=== PATIENT | male | born 1940 | race Caucasian/White ===

== ENCOUNTER 2018-09-20 13:51 | Outpatient (REF) | payer MEDICARE, OTHER, SELFPAY ==
[2018-09-20 21:48] LABS: HCT 46.8 % (40.0-50.0); HGB 16.1 g/dL (13.5-17.5); Mean Corp. HGB Concentration 34.4 g/dL (32.0-36.0); Mean Corpuscular Hemoglobin 33.6 pg (27.0-33.0); Mean Corpuscular Volume 97.7 fL (80-95); Mean Platelet Volume 11.4 fL (8.0-11.0); Platelet Count 150 x1000/uL (130-400); RBC 4.79 m/cumm (4.50-6.00); RBC Distribution Width 12.5 % (11.8-14.1); White Blood Cell Count 6.33 k/cumm (4.4-10.8)
[2018-09-20 22:23] LABS: ALT 19 U/L (12-78); AST 16 U/L (15-37); Alkaline Phosphatase 54 U/L (46-116); Anion Gap 8.4 mmol/L (3-11); BUN 14 mg/dL (7-18); Bilirubin, Total 0.8 mg/dL (0.2-1.0); CO2 30.6 mmol/L (21.0-32.0); CREATININE 1.07 mg/dL (0.70-1.30); Calcium 9.6 mg/dL (8.5-10.1); Chloride 102 mmol/L (98-107); Glucose 120 mg/dL (70-100); Potassium 3.9 mmol/L (3.5-5.1); Sodium 141 mmol/L (136-145); Total Protein 6.9 g/dL (6.4-8.2); Vitamin B12 276 pg/mL (193-986)
== END 2018-09-20 14:11 ==
LOC: NCHCN 13:51
PROVIDERS: PCP Internal Medicine; Visit Provider Internal Medicine
DX: I10 Essential (primary) hypertension (principal)
CPT/HCPCS: 80053; 85027; 82607

== ENCOUNTER 2018-09-23 09:18 | Outpatient (CLI) | payer MEDICARE, OTHER, SELFPAY ==
--- NOTE | 2018-09-23 08:51 | DI.RAD_ITS ---
SYMPTOM/DIAGNOSIS: LEFT KNEE OSTEOARTHRITIS BONE LENGTH STUDY: Standing AP views were performed from the mid-pelvis through the ankles. There is a left total hip prosthesis which appears well aligned. There are moderate to severe degenerative changes of the right hip. There is no significant leg length discrepancy. Severe degenerative changes are seen in the medial femoral tibial joint spaces of both knees. Ankle joint spaces are well maintained.
--- NOTE | 2018-09-23 08:51 | DI.RAD_ITS ---
SYMPTOM/DIAGNOSIS: EVAL LT KNEE OA LEFT KNEE: Weightbearing AP and lateral views were performed. There is severe narrowing of medial femoral tibial joint space. There is mild paula-articular spurring. Chondrocalcinosis is noted greater at the lateral femoral tibial joint. There is mild varus angulation. There is mild anterior soft tissue swelling. Vascular calcifications are seen. There is spurring at the articular aspect of the patella. IMPRESSION: Degenerative changes,greatest at the medial femoral tibial joint.
== END 2018-09-23 09:38 ==
PROVIDERS: PCP Internal Medicine; Referring Provider Internal Medicine; Visit Provider Student in an Organized Health Care Education/Training Program
DX: M17.12 Unilateral primary osteoarthritis, left knee (principal); M79.89 Other specified soft tissue disorders; M21.162 Varus deformity, not elsewhere classified, left knee; M25.562 Pain in left knee; M16.11 Unilateral primary osteoarthritis, right hip; Z96.642 Presence of left artificial hip joint; I10 Essential (primary) hypertension
CPT/HCPCS: 99203; 99214; 73560; 77073

== ENCOUNTER 2018-11-13 08:53 | Outpatient (CLI) | payer MEDICARE, OTHER, SELFPAY ==
[2018-11-13 10:15] LABS: HCT 46.1 % (40.0-50.0); HGB 15.8 g/dL (13.5-17.5); Mean Corp. HGB Concentration 34.3 g/dL (32.0-36.0); Mean Corpuscular Hemoglobin 33.1 pg (27.0-33.0); Mean Corpuscular Volume 96.6 fL (80-95); Platelet Count 149 x1000/uL (130-400); RBC 4.77 m/cumm (4.50-6.00); RBC Distribution Width 12.7 % (11.8-14.1)
[2018-11-13 10:55] LABS: Anion Gap 7.8 mmol/L (3-11); BUN 13 mg/dL (7-18); CO2 34.2 mmol/L (21.0-32.0); CREATININE 1.09 mg/dL (0.70-1.30); Calcium 9.6 mg/dL (8.5-10.1); Chloride 101 mmol/L (98-107); Glucose 80 mg/dL (70-100); Potassium 3.9 mmol/L (3.5-5.1); Sodium 143 mmol/L (136-145)
--- NOTE | 2018-11-13 20:01 | W.PREOPHP ---
Date of service: 11/13/18 Assessment and Plan (1) Osteoarthritis of left knee: Current visit: No Status: Chronic Left total knee replacement. Details of surgery were discussed with patient as well as risks and pertinent anatomy. All questions were answered. Qualifiers: Osteoarthritis type: primary Qualified Code(s): M17.12 - Unilateral primary osteoarthritis, left knee History of Present Illness Chief Complaint: Left knee pain Narrative: Jayme is a 78-year-old male who is been complaining of left knee pain for quite some time now. He states that he has pretty significant pain in both knees, the left worse than the right, whenever he ambulates for prolonged periods of time. He also has difficulty with heavy lifting because of pain in his left knee. He states that he has trouble going up and down stairs, and is really unable to tell which direction is worse. He has tried conservative treatment including injections in the past, which have not given him long-term relief. He has also been to other providers including [facility], and they also recommend that if conservative treatment does not work, he should have a total knee replacement. Since conservative treatment has failed up to this point, a left total knee replacement was offered by Dr. Cortés. Jayme agrees with this plan and is anxious to proceed. Pertinent Surgical Information Patient denies history of CVA, MN, angina, asthma, COPD, renal or liver disorders, hepatitis, bleeding disorders, diabetes, immune or thyroid disorders. No complications from anesthesia. Review of Systems Constitutional Denies fever(s) ENT Denies dizziness and Denies sore throat Cardiovascular Denies chest pain, Denies palpitations and Denies dyspnea Respiratory Denies cough and Denies dyspnea Gastrointestinal Denies abdominal pain, Denies melena, Denies hematochezia, Denies diarrhea, Denies nausea and Denies vomiting Genitourinary Denies hematuria and Denies dysuria Neurologic Denies dizziness Endocrine Denies palpitations PFSH Medical History Cough Dysphonia HTN (hypertension) Hx of transient ischemic attack (TIA) Hyperlipidemia Kidney stone Latex allergy Lower back pain Near syncope Osteoarthritis Pharyngitis Radicular pain Rib pain Rotator cuff (capsule) sprain SOB (shortness of breath) Surgical History History of arthroscopy of left knee (Chronic) Arthroplasty of knee (Inactive) Colonoscopy - IV Sedation DISCECTOMY Endoscopic Carpal Tunnel release Lithotripsy Total replacement of hip Social History Smoking/Tobacco Use Status: Never Meds Home Medications Medication Instructions Recorded Confirmed Type Atorvastatin Calcium 10 mg PO DAILY tab-cap 08/10/17 11/13/18 History aspirin 325 mg PO DAILY tab-cap 08/10/17 11/13/18 History hydrochlorothiazide 12.5 mg PO DAILY tab-cap 08/10/17 11/13/18 History melatonin 3 mg PO HS PRN 08/10/17 11/13/18 History acetaminophen 1,000 mg PO HS 11/13/18 11/13/18 History ibuprofen [Advil] 600 mg PO BID 11/13/18 11/13/18 History sennosides-docusate sodium [Senna 2 tab PO QHS PRN 11/13/18 11/13/18 History Laxative-Stool Softener] Allergies Allergy/AdvReac Type Severity Reaction Status Date / Time codeine AdvReac Mild Verified 11/13/18 09:28 enalapril AdvReac Mild Verified 11/13/18 09:28 latex AdvReac Mild Verified 11/13/18 09:28 lisinopril AdvReac Mild Verified 11/13/18 09:28 pravastatin AdvReac Mild Verified 11/13/18 09:28 Exam [facility] Head: normocephalic and atraumatic General nose exam: no nasal discharge Throat: uvula midline and no uvular edema Other: soft palate rises symmetrically, no erythema Eyes Conjunctivae: conjunctivae normal Sclera: sclerae normal Pupils: PERRL Resp Effort & Inspection: normal respiratory effort Auscultation: clear to auscultation bilaterally and no wheezes Cardio Rate: regular rate Rhythm: regular rhythm Heart Sounds: S1 normal, S2 normal and no murmurs Results Labs : 11/13/18 10:05 11/13/18 10:05 Laboratory Results - last 24 hr 11/13/18 11/13/18 10:05 10:05 WBC 5.10 RBC 4.77 Hgb 15.8 Hct 46.1 MCV 96.6 H MCH 33.1 H MCHC 34.3 RDW 12.7 Plt Count 149 MPV 10.0 Sodium 143 Potassium 3.9 Chloride 101 Carbon Dioxide 34.2 H Anion Gap 7.8 BUN 13 Creatinine 1.09 Estimated GFR/1.73 m2 >= 60.00 Glucose 80 Calcium 9.6
== END 2018-11-13 09:13 ==
PROVIDERS: PCP Internal Medicine; Visit Provider Student in an Organized Health Care Education/Training Program
DX: M25.562 Pain in left knee (principal); M17.12 Unilateral primary osteoarthritis, left knee; I10 Essential (primary) hypertension; Z01.818 Encounter for other preprocedural examination
CPT/HCPCS: 36415; 80048; 85027; NC; 93005; 93010

== ENCOUNTER 2018-11-19 06:54 | Inpatient (IN) | payer MEDICARE, OTHER, SELFPAY ==
--- NOTE | 2018-11-13 13:37 | PDOC.CMPRO ---
Care Management Progress Note Jayme resides in [facility] with his , Nahomy. 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 Jayme reports a healthy support network of family and friends, he shares his friend Kashif will transport him home from [facility] after recovery, Kashif is at his side during CM interview. Jayme also has a son named Inge. He reports having multiple surgeries in the past including a Hip Replacement and shared that he has two FWW and two electric carts. He shares no concerns for discharge needs and feels confident he will recover fine.
--- NOTE | 2018-11-13 13:42 | CMPROGNOTE_ITS ---
Care Management Progress Note Jayme resides in [facility] with his , Nahomy. 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 Jayme reports a healthy support network of family and friends, he shares his friend Kashif will transport him home from [facility] after recovery, Kashif is at his side during CM interview. Jayme also has a son named Inge. He reports having multiple surgeries in the past including a Hip Replacement and shared that he has two FWW and two electric carts. He shares no concerns for discharge needs and feels confident he will recover fine.
[2018-11-19] VITALS (13 sets, daily range): BP systolic 108–169; BP diastolic 65–96; PULSE 52–69; RESP 12–19; TEMP 35.7–37.1; O2SAT 92–99
[2018-11-19] MEDS: Celecoxib 200 MG CAP 400 MG PO (06:37)
[2018-11-19] MEDS: Gabapentin 300 MG CAP PO ×2 (06:37→21:47)
[2018-11-19] MEDS: Acetaminophen 500 MG TAB 1000 MG PO ×3 (06:37→20:14)
[2018-11-19] MEDS: oxyCODONE-CR 10 MG TABCR PO (06:38)
[2018-11-19] MEDS: Lactated Ringers 1,000 ML 80 ML IV ×3 (06:49→22:36)
[2018-11-19] MEDS: Bupivacaine LIPOSOME/PF 133 MG/10 ML VIAL IJ ×2 (07:18→09:17)
[2018-11-19] MEDS: Bupivacaine 0.5% Pres-Free 30 ML VIAL (07:18)
[2018-11-19] MEDS: Ketorolac 30 MG/ML VIAL (09:17)
[2018-11-19] MEDS: Bupivacaine 0.25% Pres-Free 30 ML VIAL (09:17)
[2018-11-19] MEDS: Normal Saline 20 ML VIAL (09:17)
--- NOTE | 2018-11-19 13:41 | PT.INIE ---
Date of service: 11/19/18 Time of Service: 13:15 PT Notes Inpatient Physical Therapy Evaluation Date: 11/19/18 Referring Doctor: Dr. Cortés PT Orders: PT CONSULT: Status post left TKA Precautions: Fall, standard Patient Profile/Admitting Diagnosis: Patient admitted following left total knee replacement performed earlier this morning. PMHX: Hypertension, history of TIA, hyperlipidemia, history of kidney stones, low back pain status post discectomy, latex allergy, status post WENDY Social History/Home Situation: Patient lives in a single level home with his . He has one step to enter, as well as a step into his bedroom. His son and [id number] live next door, and call to check in on him during evaluation today. 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 Equipment Owned/DME: FW W Subjective: Patient states that he is feeling well. He states that his leg is waking up, and he is not experiencing any pain. Objective: General Observation: Resting in bed with IV in LUE, Ky wrap and Cryo/Cuff in place on the left leg, Caraballo catheter. Supplemental oxygen via nasal cannula. Mental Status: A and O x3 Pain: Denies ROM: Right Upper Extremity: WFL Left Upper Extremity: WFL Right Lower Extremity: WFL Left Lower Extremity: Hip range of motion is grossly within normal limits. Left knee functionally allows 0-95 degrees of flexion. Strength: Right Upper Extremity: WFL Left Upper Extremity: WFL Right Lower Extremity: Hip flexion 5/5. Quads 5/5. Ankle dorsiflexion 5/5. Left Lower Extremity: Patient's functionally able to demonstrate SLR without extension lag for 5 repetitions. Quad strength is 3/5 or greater as assessed by long arc quad. Ankle dorsiflexion is 3/5 or greater. Sensation: Intact distally Bed Mobility/Transfers: Supine?sit: Supervision Sit?stand: Contact-guard Stand?sit: Supervision Bed?chair: CG with FW W Gait: Patient ambulance 30 feet with FW W, WBAT left lower extremity, CG. He requires cues for equipment management and assistance for management of IV pole. Balance: Static Sitting: Normal Dynamic Sitting: Normal Static Standing: Fair Dynamic Standing: Fair Special Tests: Mobility Limitations Standardized Measure [facility] 6 clicks Basic Mobility Inpatient Short Form: Raw Score: 20 CMS Score: 36% deficit Informed Consent/Education: Patient instructed in purpose of PT consult and plan of care. He was instructed in an early therapeutic exercise program, as noted on flowsheet. He is provided with exercises on his white board for completion between PT sessions (completion of antiembolic activities for 10 repetitions every hour). Assessment: Patient is a 78 year old male referred to physical therapy services with the diagnosis of left knee OA, status post left TKA performed earlier today. Patient presents with clinical signs and symptoms consistent with postoperative status, as demonstrated by the following impairment level findings: 1. Decreased left knee range of motion 2. Decreased functional strength of left lower extremity 3. Decreased balance 4. Gait impairments Impairments are contributing to the following functional limitations: 1. Decreased activity tolerance 2. Decreased independence with transfers 3. Decreased tolerance to household distance ambulation 4. Unable to manage stairs [facility] score 36% deficit. Patient is assessed as Moderate 29669 complexity based on the following: History: 78-year-old male referred for rehabilitation following left TKA performed earlier today. Complicating medical factors include history of TIA, chronic low back pain status post discectomy and history of WENDY. Examination: Functional limitations as noted above Presentation: Evolving due to acute postoperative status Decision Making: Moderate complexity Goals: Goals X1 week 1. Supine-Sit: Supervision 2. Sit-Supine: Supervision 3. Sit-Stand : Supervision 4. Stand-Sit: Supervision 5. Bed-Chair: Supervision with FW W 6. Chair-Bed: Supervision with FW W 7. Gait: Supervision with FW W times 50 feet 8. Stairs: Able to a send and descend single step with bilateral upper extremity support to rail 9. Independent with home exercise program Plan of Care/Treatment Plan: 1-2x/day, 7 days/week x 1 week. Plan of care has been reviewed with the SALES NEGOTIATOR providing the service under Physical Therapy direction. Initiate Physical Therapy intervention for strengthening, bed mobility, transfers, gait, stairs, balance training, use of assistive device. DISCHARGE RECOMMENDATIONS: Home, with no equipment needs anticipated TREATMENT CODE/TIME: 20 minutes ([id number])
--- NOTE | 2018-11-19 13:50 | IN_ITS ---
Date of service: 11/19/18 Time of Service: 13:15 PT Notes Inpatient Physical Therapy Evaluation Date: 11/19/18 Referring Doctor: Dr. Cortés PT Orders: PT CONSULT: Status post left TKA Precautions: Fall, standard Patient Profile/Admitting Diagnosis: Patient admitted following left total knee replacement performed earlier this morning. PMHX: Hypertension, history of TIA, hyperlipidemia, history of kidney stones, low back pain status post discectomy, latex allergy, status post WENDY Social History/Home Situation: Patient lives in a single level home with his . He has one step to enter, as well as a step into his bedroom. His son and [id number] live next door, and call to check in on him during evaluation today. 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 Equipment Owned/DME: FW W Subjective: Patient states that he is feeling well. He states that his leg is waking up, and he is not experiencing any pain. Objective: General Observation: Resting in bed with IV in LUE, Ky wrap and Cryo/Cuff in place on the left leg, Caraballo catheter. Supplemental oxygen via nasal cannula. Mental Status: A and O x3 Pain: Denies ROM: Right Upper Extremity: WFL Left Upper Extremity: WFL Right Lower Extremity: WFL Left Lower Extremity: Hip range of motion is grossly within normal limits. Left knee functionally allows 0-95 degrees of flexion. Strength: Right Upper Extremity: WFL Left Upper Extremity: WFL Right Lower Extremity: Hip flexion 5/5. Quads 5/5. Ankle dorsiflexion 5/5. Left Lower Extremity: Patient's functionally able to demonstrate SLR without extension lag for 5 repetitions. Quad strength is 3/5 or greater as assessed by long arc quad. Ankle dorsiflexion is 3/5 or greater. Sensation: Intact distally Bed Mobility/Transfers: Supine?sit: Supervision Sit?stand: Contact-guard Stand?sit: Supervision Bed?chair: CG with FW W Gait: Patient ambulance 30 feet with FW W, WBAT left lower extremity, CG. He requires cues for equipment management and assistance for management of IV pole. Balance: Static Sitting: Normal Dynamic Sitting: Normal Static Standing: Fair Dynamic Standing: Fair Special Tests: Mobility Limitations Standardized Measure [facility] 6 clicks Basic Mobility Inpatient Short Form: Raw Score: 20 CMS Score: 36% deficit Informed Consent/Education: Patient instructed in purpose of PT consult and plan of care. He was instructed in an early therapeutic exercise program, as noted on flowsheet. He is provided with exercises on his white board for completion between PT sessions (completion of antiembolic activities for 10 repetitions every hour). Assessment: Patient is a 78 year old male referred to physical therapy services with the diagnosis of left knee OA, status post left TKA performed earlier today. Patient presents with clinical signs and symptoms consistent with postoperative status, as demonstrated by the following impairment level findings: 1. Decreased left knee range of motion 2. Decreased functional strength of left lower extremity 3. Decreased balance 4. Gait impairments Impairments are contributing to the following functional limitations: 1. Decreased activity tolerance 2. Decreased independence with transfers 3. Decreased tolerance to household distance ambulation 4. Unable to manage stairs [facility] score 36% deficit. Patient is assessed as Moderate 20301 complexity based on the following: History: 78-year-old male referred for rehabilitation following left TKA performed earlier today. Complicating medical factors include history of TIA, chronic low back pain status post discectomy and history of WENDY. Examination: Functional limitations as noted above Presentation: Evolving due to acute postoperative status Decision Making: Moderate complexity Goals: Goals X1 week 1. Supine-Sit: Supervision 2. Sit-Supine: Supervision 3. Sit-Stand : Supervision 4. Stand-Sit: Supervision 5. Bed-Chair: Supervision with FW W 6. Chair-Bed: Supervision with FW W 7. Gait: Supervision with FW W times 50 feet 8. Stairs: Able to a send and descend single step with bilateral upper extremity support to rail 9. Independent with home exercise program Plan of Care/Treatment Plan: 1-2x/day, 7 days/week x 1 week. Plan of care has been reviewed with the SEWING MACHINE TESTER providing the service under Physical Therapy direction. Initiate Physical Therapy intervention for strengthening, bed mobility, transfers, gait, stairs, balance training, use of assistive device. DISCHARGE RECOMMENDATIONS: Home, with no equipment needs anticipated TREATMENT CODE/TIME: 20 minutes ([id number])
[2018-11-19] MEDS: Celecoxib 100 MG CAP 200 MG PO (20:14)
[2018-11-19] MEDS: oxyCODONE 5 MG TAB PO (20:14)
--- NOTE | 2018-11-19 22:07 | ROE_ITS ---
Date of service: 11/19/18 Time of Service: 10:02 Operative Note DATE OF PROCEDURE: 11/19/18 PRE-OP DIAGNOSIS: Left knee osteoarthritis POST-OP DIAGNOSIS: same PROCEDURE: Left Total Knee Replacement SURGEON: Cal Cortés MORTGAGE ASSISTANT: Melania Nicole ANESTHESIA: regional and spinal ESTIMATED BLOOD LOSS: 200 PATHOLOGY: none sent TOURNIQUET TIME: 31 COMPLICATIONS: None Patient was transported to: PACU Patient's condition: stable Implants: 1. Depuy Attune Posterior Stabilized Femoral Component, Size 8 2. Depuy Attune Fixed Platform Tibial Component, Size 7 3. Depuy Attune 8 x 5 mm fixed, Stabilized Poly 4. Depuy Attune Patellar Component, Size 35 mm Indications: I have seen Jayme in clinic for symptoms of left knee arthritis, confirmed with radiographic findings. He has exhausted nonoperative methods and was having significant limitations in daily function and desired better function and less pain. I discussed the technical details of a knee replacement. I explained the risks of the procedure to include, but not limited to, bleeding, infection, pain, stiffness, fracture, damage to nerves and vessels, damage to muscles and tendons, loosening, need for repeat procedure, blood clot and cardiopulmonary demise. Despite these risks, Jayme elected to proceed. Findings: There was significant signs of arthritis throughout the knee. Procedure Description: Jayme was greeted in the preoperative holding area where the correct side was identified and marked. The consent was reviewed with the patient and signed. The history and physical was updated. All questions were answered. Preoperative mediacations were administered: Acetaminophen 1000mg, Celebrex 400mg, Gabapentin 300mg, and Oxycontin 10mg. An adductor canal block was then administered by the anesthesia team in the PACU. Jayme was taken back to the operating room. A spinal anesthestic was then administered. The patient was placed into the supine position on the operating room table. A nonsterile tourniquet was placed high onto the leg but only used for cementing. Posts were placed for positioning during the procedure. All bony prominences were well padded. Prophylactic antibiotics in the form of cefazolin were administered. 1g of Tranxemic Acid was given intravenously within 30 minutes of incision. The left leg was then prepped with Chloraprep and draped in a standard fashion with impervious stockinette and extremity drape with Iodine impregnated skin protection. A timeout to confirm correct identity, side and site, procedure, allergies, anesthesia, and medical concerns was performed. With the knee in some flexion, a midline incision was made overlying the knee. Full thickness skin flaps were raised once the extensor mechanism was encountered. These were raised medially and laterally. Any bleeding was controlled with electrocautery. Once the extensor mechanism was fully exposed, a medial parapatellar arthrotomy was performed in a flexed position. All bleeding from the arthrotomy and the geniculate arteries was coagulated. A medial subperiosteal peel was performed with electrocautery to the midcoronal plane. The fat pad was removed while keeping the patellar tendon protected. The anterior distal femur synovium was removed for later visualization. The ACL and PCL were resected and the anterior horn of the lateral meniscus was transected. The knee was then flexed with the patella everted. Large osteophytes from the tibia were removed. Large osteophytes from the femur were removed. Using a step drill, and based on preoperative templating, the femoral canal was entered. This was done with a step drill without any difficulty. The intramedullary distal femoral cut guide was inserted, set to a 5 degree valgus cut and 9mm cut thickness. The distal femoral cut guide was then held in position and pinned. With the soft tissues protected, the distal cut was performed. This was passed over a few times to ensure a planar cut. I then turned attention to the tibia. The extramedullary guide was placed onto the leg. The distal aspect was slid medial to adjust for position of center of ankle and stay in line with shaft of the tibia. Approximately 3-5 degrees of posterior slope was kept in the proximal cutting guide. The center of the guide was aligned with the PCL. The stylus was used to assess cut thickness. The medial side, most involved side, was set for a 4mm cut. This was then held in position and pinned into place with 2 additional pins and a cross pin for stability. The medial and lateral collateral ligaments were protected and the cut was performed. With this completed, it was assessed and noted to be of appropriate dimensions. The guide was removed. A spacer block was inserted and the knee was brought into extension. The 5 mm spacer block provided full extension, without hyperextension and with stability of both the medial and lateral collateral ligaments was assessed. The pins from the femur and the tibia were then removed. The distal femur was then sized. The anterior stylus was placed onto the lateral ridge of the anterior femur. This indicated a size 8 femur. The external rotation of the guide was adjusted to 3 degrees to match the epicondylar axis, perpendicular to Dolores?s line. The 4-in-1 cutting guide was the placed. The posterior medial femur cut was evaluated and appeared of good thickness. The spacer block was inserted underneath the cutting guide and stability was confirmed in 90 degrees of flexion. An chepe wing was used to confirm appropriate position of the anterior cut to avoid notching. This cutting guide was ensured to be flush on the cut surface and then pinned into place with headed pins. While protecting the soft tissues, quad tendon, and collateral ligaments, the anterior and posterior cuts were performed with a saw. The central two pins were removed and the posterior and anterior chamfers were cut next. The notch-cutting guide was placed. This was pinned to lateralize the femoral component as much as possible while keeping it flush on the cut surface. This was then pinned into position. A reciprocating saw was used to make the notch cut. A rasp smoothed the cut surfaces. A trial posterior stabilized femoral component was then inserted, impacted down to the cut surfaces, and the lug holes were drilled. Posterior osteophytes and capsular adhesions were removed with an osteotome. A provisional trial tibial component was placed and the knee was brought through range of motion. There was noted to be excellent extension and flexion. There was no significant instability. The patella was tracking without thumbs. The tibial cut surface was fully exposed. The medial and lateral menisci were removed. The tibia was then sized as a 7. The tibia had been previously marked during trialing to correspond to the center of the tibial component to help with rotation. The trial was aligned to this issa, approximately rotated to the medial 1/3rd of the tibial tubercle. The trial was pinned into place. The tibia was prepared with a reamer and a keel punch. The knee was then brought into extension and the patella was measured as 28 mm. Using the patellar clamp and cut guide, this was resected to a flat surface with at least 13mm of thickness remaining. The size 35 m patella fit the best. This was oriented and then clamped into position. The lugs were drilled. The trial components were removed. The final components, except for the polyethylene were opened on the back table. The periosteal and capsular tissues, especially posteriorly, around the knee were then systematically injected with a periarticular cocktail consisting of 50cc 0.25% Marcaine, 30mg Ketorolac, 20cc of Exparal and 50cc of injectable saline. The tourniquet was then inflated to 275mmHg. The knee was thoroughly irrigated with a pulse lavage and dried. On the back table, with the implants opened, the cement was mixed. 2 batches of antibiotic laden cement were prepared with vacuum assistance. After the cement was ready a small amount was placed on to the back side of the tibial component at the keel. A small amount was placed onto the posterior flange of the femur. Cement was manual pressurized and impregnated into the cut surface of the tibia. The tibial component was then inserted into the cut surface and impacted into position. Excess cement was removed and the component was reimpacted. Again, excess cement was removed and our attention was then turned to the femur. The femoral cut surface was once again dried and cement was manually impacted into the cut surface. The femoral component was lined with the lug holes and impacted. Excess cement was removed. It was ensured to be down against the cut surface. The trial polyethylene was then inserted and the leg was brought out into full extension for the duration of the cement curing process, approximately 15min. Cement was lastly manually impacted into the cut surface of the patella and the patellar button was clamped into position and held. During this process attention was turned to the gutters of the knee and for all interfaces for any excess cement. After the cement had finally cured, approximately 15min, the clamp was removed from the patella and the knee was taken through range of motion. A size 5 mm polyethylene component provided the best range of motion and stability with less than 2mm gapping with medial and lateral stress and full extension without significant hyperextension. The patella was tracking with a no-thumbs technique. The trial poly was removed and once again the knee was checked for any loose, excess, or errant cement. The poly component was then inserted and impacted into position after cleaning and drying the tibial tray. The capsule was then reapproximated with a No. 1 Vicryl at multiple locations. The capsule was finally closed with a No. 2 Stratafix, barbed suture. The tourniquet was then released and the arthrotomy appeared watertight without significant bleeding. The second dosing of 1g TXA was started. Deep tissues were then reapproximated with 0 Vicryl and 2-0 Vicryl. The skin was closed with a running 3-0 Monocryl in a subcuticular fashion. This was reinforced with skin glue. A Mepilex silver dressing was applied along with a [id number] SHAHANA wrap. A CryoCuff was applied. Jayme was transferred to the hospital bed without difficulty an suffering no apparent complication. Jayme has a good prognosis. Physical therapy will start today and without restrictions, weight-bearing as tolerated. Aspirin 325 mg daily, per his usual routine, will be used for DVT prophylaxis.
[2018-11-20 04:40] VITALS: BP 138/89; PULSE 60; RESP 18; TEMP 37.1; O2SAT 94
[2018-11-20] MEDS: oxyCODONE 5 MG TAB PO (04:52)
[2018-11-20] MEDS: Ondansetron 4 MG/2 ML VIAL IVP (06:44)
[2018-11-20] MEDS: Pantoprazole 40 MG TABCR PO (06:44)
[2018-11-20 07:35] VITALS: BP 93/58; PULSE 90; RESP 18; TEMP 36.4; O2SAT 92
--- NOTE | 2018-11-20 10:17 | W.PM.PROGNOT ---
Date of Service Date of service: 11/20/18 Time of Service: 10:17 Assessment and Plan (1) Osteoarthritis of left knee: Current visit: No Status: Chronic Jayme is a 78-year-old status post left knee replacement. He is doing well. He did have some nausea and vomiting this morning which should be medication related. Therefore, we will change his pain medication. I encouraged him to ambulate. He is to work physical therapy. Given his nausea, vomiting, and lack pain control currently, we will likely discharge home tomorrow. He will continue his home dose of aspirin for DVT prophylaxis. Qualifiers: Osteoarthritis type: primary Qualified Code(s): M17.12 - Unilateral primary osteoarthritis, left knee Subjective Interval history since last seen: Jayme reports be doing well. He has had some pain but is been able to ambulate. The pain has been well controlled. He did take a pain pill earlier this morning and unfortunately is because of nausea and vomiting. Since, he has been without nausea. The pain is primarily anteriorly and slightly posteriorly. He has been able to void without difficulty. He denies chest pain or shortness of breath. Exam Narrative Exam Narrative: Evaluation of the left leg shows dressings which are clean dry and intact. He is able to extend the knee against resistance and straight leg raise. Knee is stable to varus and valgus stress. He has intact ankle dorsiflexion, plantarflexion, EHL, and FHL. Sensation intact light touch over the deep and superficial peroneal nerves and tibial nerve. Objective Objective Clinical Data: Vital Signs Temperature 36.4 C L 11/20/18 07:35 Temperature Source Tympanic 11/20/18 07:35 Pulse 90 11/20/18 07:35 Pulse Rhythm Regular 11/19/18 20:00 Respiratory Rate 18 11/20/18 07:35 Respiratory Effort Non-Labored 11/19/18 20:00 Respiratory Depth Normal 11/19/18 20:00 Respiratory Pattern Normal 11/19/18 20:00 Blood Pressure 93/58 L 11/20/18 07:35 Pulse Oximetry 92 L 11/20/18 07:35 Respiratory End-tidal CO2 43 11/19/18 10:40 Oxygen Delivery Method Room Air 11/20/18 07:35 Oxygen Flow Rate 0 11/20/18 07:35 Pain Level 7 11/20/18 07:35 Comment 11/19/18 11:21 Intake & Output 11/19/18 11/19/18 11/20/18 11:59 23:59 11:59 Intake Total 1170 / 3788 2618 / 3788 1445.333 / 1445.333 Output Total 400 / 1650 1250 / 1650 1875 / 1875 Balance 770 / 2138 1368 / 2138 -429.667 / -429.667 Weight 94.8 kg Intake: IV 1170 / 2218 1048 / 2218 745.333 / 745.333 Oral 1570 / 1570 700 / 700 Output: Urine 200 / 1450 1250 / 1450 1725 / 1725 Emesis 150 / 150 Estimated Blood Loss 200 / 200 Other: Urine Color Yellow Yellow Yellow Urine Appearance Clear Clear Clear Urine Odor Normal Emesis Description None Undigested Food Voiding Methods Urinal Toilet
[2018-11-20] MEDS: Atorvastatin 10 MG TAB PO (10:19)
[2018-11-20] MEDS: Aspirin 325 MG TAB PO (10:19)
[2018-11-20] MEDS: Docusate Sodium 100 MG CAP PO (10:25)
[2018-11-20] MEDS: Acetaminophen 500 MG TAB 1000 MG PO (10:26)
[2018-11-20] MEDS: Celecoxib 100 MG CAP 200 MG PO ×2 (11:18→21:04)
--- NOTE | 2018-11-20 11:28 | PT.INTREAT ---
Date of service: 11/20/18 Time of Service: 11:28 PT Notes 11/20/18 SUBJECTIVE: Mike stating that he had a terrible night. He is not managing well with the pain medications and he is vomiting after taking them. He did vomit earlier this morning but was then able to keep his breakfast down. He states he is doing his hourly exercises for his knee. OBJECTIVE: Seated in recliner. Agreeable to PT treatment. TRANSFERS: Sit to stand: S Stand to sit: S Sit to supine: S GAIT: Device: FWW/ No AD Weight bearing: WBAT L Assist: SBA Distance: 20' utilizing FWW, 100' with no AD Therex: Review ankle pumps, quad sets and SLR which he is performing independently each hour. ASSESSMENT: Encouraged pt to utilize his walker for safety purposes for a few days. He is tolerating his light exercises well without difficulty. PLAN: Continue to mobilize and progressing toward's established goals. Treatment time: 20' [id number] Ela Gonzalez PTA
[2018-11-20 11:41] VITALS: BP 119/67; PULSE 72; RESP 18; TEMP 36.4; O2SAT 92
--- NOTE | 2018-11-20 14:41 | PT.INTREAT ---
Date of service: 11/20/18 Time of Service: 14:41 PT Notes Inpatient Physical Therapy Treatment Note [facility] Date: 11/20/18 PRECAUTIONS: Standard SUBJECTIVE: Pt feels as though his [place] is under control. He states that he got some sleep this afternoon so he feels better. OBJECTIVE: BED MOBILITY/TRANSFERS Supine-sit: SBA Sit-supine: SBA Sit-stand: SBA Stand-sit: SBA GAIT Assistive Device: FWW Weight bearing: WBAT L LE Assist: SBA Distance: 120ft THEREX: Pt completed LE ther ex in the supine and seated positions as per flow sheet. Pt was able to achieve approx 90 degrees knee flexion while in seated on his own and almost 0 degrees knee ext. ASSESSMENT: Pt tolerated today's session very well. Pt was very motivated to complete his session and very independent. PLAN: Cont as per PT POC. TREATMENT CODE/TIME: 2:15-2:35 (20 TAx1
--- NOTE | 2018-11-20 15:09 | PDOC.CMIN ---
- If Service Date Differs Date of service: 11/20/18 Time of Service: 15:09 Care Management Initial Assess REASON FOR HOSPITALIZATION:: (L) Knee DJD PAST MEDICAL HISTORY/PAST SURGICAL HISTORY:: Cough. Dysphonia. HTN (hypertension). Hx of transient ischemic attack (TIA). Hyperlipidemia. Kidney stone. Latex allergy. Lower back pain. Near syncope. Osteoarthritis. Pharyngitis. Radicular pain. Rib pain. Rotator cuff (capsule) sprain. SOB (shortness of breath). History of arthroscopy of left knee (Chronic). Arthroplasty of knee (Inactive). Colonoscopy - IV Sedation. DISCECTOMY. Endoscopic Carpal Tunnel release. Lithotripsy. Total replacement of hip PREVIOUS FUNCTIONAL STATUS/SOCIAL/FAMILY SUPPORTS:: Jayme 'Mike' resides with his Nah[facility] in [facility]. Jayme is independent at baseline, he drives, and manages ADL's. Mike reports support from family and friends, and names his friend Kashif. CURRENT FUNCTIONAL STATUS:: Mike is sitting up in bed, pleasant and receptive to discussion. He has been ambulating in the halls throughout the day today. ADVANCE DIRECTIVES:: None on file Has patient been provided with information about the portal?: Yes Did the patient sign up for the portal?: No CODE STATUS:: Full Code INSURANCE COVERAGE / FINANCIAL ISSUES:: Medicare, [employer] CURRENT HOME/COMMUNITY SERVICES/EQUIPMENT:: Currently Jayme has no services in the community. He does report that he has a FWW PRIMARY CARE PHYSICIAN:: Dr. Estrada POTENTIAL DISCHARGE NEEDS:: F/U appointment with Dr. Cortés PATIENT/FAMILY EDUCATION NEEDS:: Review DC instructions, any limitations, and ongoing DC planning discussion. Discuss Ask Me Three ANTICIPATED BARRIERS TO DISCHARGE:: None identified at this time TRANSPORTATION:: Via private vehicle with family/friend PLAN:: Mike to return home with no anticipated services. He will F/U with dr. Braun and plan of care as prescribed. Jayme's family/friend to transport when ready.
--- NOTE | 2018-11-20 15:19 | INITIAL_ITS ---
- If Service Date Differs Date of service: 11/20/18 Time of Service: 15:09 Care Management Initial Assess REASON FOR HOSPITALIZATION:: (L) Knee DJD PAST MEDICAL HISTORY/PAST SURGICAL HISTORY:: Cough. Dysphonia. HTN (hypertension). Hx of transient ischemic attack (TIA). Hyperlipidemia. Kidney stone. Latex allergy. Lower back pain. Near syncope. Osteoarthritis. Pharyngitis. Radicular pain. Rib pain. Rotator cuff (capsule) sprain. SOB (shortness of breath). History of arthroscopy of left knee (Chronic). Arthroplasty of knee (Inactive). Colonoscopy - IV Sedation. DISCECTOMY. Endoscopic Carpal Tunnel release. Lithotripsy. Total replacement of hip PREVIOUS FUNCTIONAL STATUS/SOCIAL/FAMILY SUPPORTS:: Jayme 'Mike' resides with his Nahomy in [facility]. Jayme is independent at baseline, he drives, and manages ADL's. Mike reports support from family and friends, and names his friend Kashif. CURRENT FUNCTIONAL STATUS:: Mike is sitting up in bed, pleasant and receptive to discussion. He has been ambulating in the halls throughout the day today. ADVANCE DIRECTIVES:: None on file Has patient been provided with information about the portal?: Yes Did the patient sign up for the portal?: No CODE STATUS:: Full Code INSURANCE COVERAGE / FINANCIAL ISSUES:: Medicare, [employer] CURRENT HOME/COMMUNITY SERVICES/EQUIPMENT:: Currently Jayme has no services in the community. He does report that he has a FWW PRIMARY CARE PHYSICIAN:: Dr. Estrada POTENTIAL DISCHARGE NEEDS:: F/U appointment with Dr. Cortés PATIENT/FAMILY EDUCATION NEEDS:: Review DC instructions, any limitations, and ongoing DC planning discussion. Discuss Ask Me Three ANTICIPATED BARRIERS TO DISCHARGE:: None identified at this time TRANSPORTATION:: Via private vehicle with family/friend PLAN:: Mike to return home with no anticipated services. He will F/U with dr. Braun and plan of care as prescribed. Jayme's family/friend to transport when ready.
[2018-11-20 15:35] VITALS: BP 103/63; PULSE 54; RESP 18; TEMP 37.1; O2SAT 92
[2018-11-20 20:01] VITALS: BP 111/69; PULSE 76; RESP 19; TEMP 37.2; O2SAT 92
[2018-11-20] MEDS: Gabapentin 300 MG CAP PO (21:04)
[2018-11-20 22:53] VITALS: BP 101/52; PULSE 81; RESP 17; TEMP 36.9; O2SAT 93
[2018-11-21 04:35] VITALS: BP 115/64; PULSE 60; RESP 16; TEMP 36.9; O2SAT 93
[2018-11-21] MEDS: Docusate Sodium 100 MG CAP PO ×2 (04:53→16:17)
[2018-11-21] MEDS: Acetaminophen 500 MG TAB PO (07:18)
[2018-11-21 07:40] VITALS: BP 103/74; PULSE 93; RESP 18; TEMP 36.2; O2SAT 92
[2018-11-21] MEDS: Pantoprazole 40 MG TABCR PO (09:35)
[2018-11-21] MEDS: Atorvastatin 10 MG TAB PO (09:35)
[2018-11-21] MEDS: Normal Saline Flush 10 ML SYR IV (09:35)
[2018-11-21] MEDS: Aspirin 325 MG TAB PO (09:36)
[2018-11-21] MEDS: Celecoxib 100 MG CAP 200 MG PO (09:36)
[2018-11-21] MEDS: HYDROmorphone 2 MG TAB PO ×2 (09:37→16:17)
[2018-11-21 11:32] VITALS: BP 117/71; PULSE 73; RESP 18; TEMP 36.3; O2SAT 92
--- NOTE | 2018-11-21 14:08 | PT.INTREAT ---
Date of service: 11/21/18 Time of Service: 10:00 PT Notes Inpatient Physical Therapy Treatment Note [facility] Date: 11/21/18 PRECAUTIONS:Fall, Standard SUBJECTIVE: Mike states that he is anxious to return home. He spoke with Dr. Cortés earlier this morning, and states that his discharge planning was still up in the air. He did have poorly controlled pain during the coordinator integrated marketing hours, but states that since taking his pain medication this morning he is been at 0/10. OBJECTIVE: PAIN: 0/10 at rest BED MOBILITY/TRANSFERS Supine-sit: Independent Sit-supine: Independent Sit-stand: Supervision Stand-sit: Supervision GAIT Assistive Device: WW Weight bearing: WBAT left Assist: SBA Distance: 120 feet x1, 50 feet x1 Deviation: Cues for step through pattern. Patient experiences increasing left knee pain with progressive ambulation, and was assisted back to bed post ambulation with left Cryo/Cuff in place. THEREX: Patient was instructed in an open and close chain strengthening program, as noted on flowsheet. Introduced left-sided hip PREs, with good tolerance. Patient is unable to progress to right sided hip PREs due to inability to tolerate unilateral weightbearing on the left lower extremity. He is initially unable to perform active SLR, requiring min assist for first 3 repetitions; he subsequently able to perform active SLR for 2 sets of 10 reps. He was instructed in active assisted range for independent completion, and was provided with a leg business analyst ecommerce for home use. STAIRS: Patient was instructed in stair management techniques, and was able to demonstrate step to pattern for therapeutic stairs (6 inches x2, 4 inches x3) with bilateral upper extremity support to rails with supervision only. ROM: Initially allows 10-70 degrees flexion, although with gentle mobilization he tolerates 5-85 degrees. ASSESSMENT: Tolerating progression of ambulation and introduction of stair management well. He has pain consistent with postoperative status, much better managed after receiving wanting pain meds. PLAN: Continue per established POC. TREATMENT CODE/TIME: 45 minutes ([id number]; [id number])
--- NOTE | 2018-11-21 14:15 | PTTR_ITS ---
Date of service: 11/21/18 Time of Service: 10:00 PT Notes Inpatient Physical Therapy Treatment Note [facility] Date: 11/21/18 PRECAUTIONS:Fall, Standard SUBJECTIVE: Mike states that he is anxious to return home. He spoke with Dr. Cortés earlier this morning, and states that his discharge planning was still up in the air. He did have poorly controlled pain during the assembly cleaner hours, but states that since taking his pain medication this morning he is been at 0/10. OBJECTIVE: PAIN: 0/10 at rest BED MOBILITY/TRANSFERS Supine-sit: Independent Sit-supine: Independent Sit-stand: Supervision Stand-sit: Supervision GAIT Assistive Device: WW Weight bearing: WBAT left Assist: SBA Distance: 120 feet x1, 50 feet x1 Deviation: Cues for step through pattern. Patient experiences increasing left knee pain with progressive ambulation, and was assisted back to bed post ambulation with left Cryo/Cuff in place. THEREX: Patient was instructed in an open and close chain strengthening program, as noted on flowsheet. Introduced left-sided hip PREs, with good tolerance. Patient is unable to progress to right sided hip PREs due to inability to tolerate unilateral weightbearing on the left lower extremity. He is initially unable to perform active SLR, requiring min assist for first 3 repetitions; he subsequently able to perform active SLR for 2 sets of 10 reps. He was instructed in active assisted range for independent completion, and was provided with a leg property worker for home use. STAIRS: Patient was instructed in stair management techniques, and was able to demonstrate step to pattern for therapeutic stairs (6 inches x2, 4 inches x3) with bilateral upper extremity support to rails with supervision only. ROM: Initially allows 10-70 degrees flexion, although with gentle mobilization he tolerates 5-85 degrees. ASSESSMENT: Tolerating progression of ambulation and introduction of stair management well. He has pain consistent with postoperative status, much better managed after receiving wanting pain meds. PLAN: Continue per established POC. TREATMENT CODE/TIME: 45 minutes ([id number]; [id number])
--- NOTE | 2018-11-21 14:54 | PDOC.CMDIS ---
- If Service Date Differs Date of service: 11/21/18 Time of Service: 14:54 LACE Index Scoring Tool - Questions: Length of Stay (in days): 3 Acuity (Admit via E.D.?): No E.D. Visits: 0 - Answers: Total Score: 3 Risk of Readmission: Low Risk Care Management Discharge Reason for Hospitalization: (L) Knee DJD Discharge Plan: Jayme will return home with no services. He will F/U with Dr. Cortés and plan of care as prescribed. Jayme has all necessary DME for DC. Family to transport. Patient/Family Education Needs: Review DC instructions, any limitations, and discuss 'Ask Me Three'
--- NOTE | 2018-11-21 15:05 | DSE_ITS ---
Date of service: 11/21/18 Time of Service: 10:04 DS: Diagnosis Discharge Diagnosis (1) Osteoarthritis of left knee: Status: Chronic Discharge Plan Disposition Patient Disposition: HOME Condition: Stable Discharge Details Reason For Visit: L KNEE DJD Admit Date/Time: 11/19/18 06:54 Admit Provider: Cal Cortés Attending Provider: Cal Cortés Primary Care Provider: Alcides Estrada Hospital Course Hospital Course: Patient was admitted to the medical/surgical floor following the procedure. It was tolerated well without any notable medical, surgical, or anesthetic complications. Mobilization began postoperatively. The staples catheter was removed and voiding spontaneously. Vitals were stable. Physical therapy worked with the patient and was cleared for discharge home. No acute medical issues. Home Meds and New Rx's Prescriptions: New celecoxib 200 mg capsule 200 mg PO BID PRN (Reason: pain) Qty: 60 RF: 1 acetaminophen 500 mg capsule 1,000 mg PO Q8H PRN (Reason: pain) Qty: 90 RF: 2 hydromorphone 2 mg tablet 2 mg PO Q4H PRN (Reason: pain) Qty: 18 RF: 0 Continued Atorvastatin Calcium 10 MG tablet 10 mg PO DAILY RF: 0 aspirin 325 MG tablet 325 mg PO DAILY RF: 0 melatonin 3 MG tablet 3 mg PO HS PRNRF: 0 hydrochlorothiazide 12.5 MG capsule 12.5 mg PO DAILY RF: 0 ibuprofen [Advil] 200 mg Tablet 600 mg PO BID RF: 0 sennosides-docusate sodium [Senna Laxative-Stool Softener] 8.6-50 mg Tablet 2 tab PO QHS PRNRF: 0 Discontinued acetaminophen 500 mg Tablet 1,000 mg PO HS RF: 0 Discharge Instructions Additional Instructions: Dr. Cortés?s Total Knee Discharge Instructions Activity: The most important activity is to walk. You should try to take short walks a few times a day. It is important that when resting you work on keeping the knee straight. Avoid putting a pillow behind the knee as this will encourage flexion. Work on range of motion exercises as provided by Physical Therapy. - Start outpatient physical therapy within 2 weeks. - You should wear the CECY hose on both legs for 4 weeks. Dressing: Keep the surgical dressing in place for at least one week. After the first week it may be removed and replace with light gauze and tape or nothing. It may get wet after 3 days but avoid soaking the dressing. If it gets wet, just lightly pat dry. Medications: - You should take Tylenol and anti-inflammatory (Celebrex) as your primary pain control medications. IF CELEBREX IS NOT COVERED AND IS COST-PROHIBITIVE, YOU MAY USE IBUPROFEN 600mg EVERY 8 HOURS - You have been prescribed a stronger pain medication (Dilaudid) for breakthrough pain, take as needed as prescribed. - You will be taking Aspirin 81mg twice a day for DVT prevention unless instructed otherwise. - If you have constipation you should take Colace or Miralax (both [id number]). It takes most people 3-4 days to have a bowel movement. Follow-up: 2 weeks Referrals: Cal Cortés MD [ [facility]YSICIAN] - Activity:: Activity as Tolerated Equipment/Supplies:: Walker Diet:: As Tolerated Discharge Orders Discharge Orders: Discharge Order (Routine); Ordered 11/21/18 Ordered By: Cal Cortés DS: Data Vitals/I&O Vitals and I&O: Vital Signs Temperature 36.3 C L 11/21/18 11:32 Temperature Source Tympanic 11/21/18 11:32 Pulse 73 11/21/18 11:32 Pulse Rhythm Regular 11/21/18 11:32 Respiratory Rate 18 11/21/18 11:32 Respiratory Effort 11/21/18 11:32 Respiratory Depth Normal 11/21/18 11:32 Respiratory Pattern Normal 11/21/18 11:32 Blood Pressure 117/71 11/21/18 11:32 Pulse Oximetry 92 L 11/21/18 11:32 Respiratory End-tidal CO2 43 11/19/18 10:40 Oxygen Delivery Method Room Air 11/21/18 11:32 Oxygen Flow Rate 0 11/21/18 11:32 Pain Level 9 11/21/18 11:51 Comment 11/21/18 11:32 Intake & Output 11/20/18 11/21/18 11/21/18 23:59 11:59 23:59 Intake Total 1080 / 2525.333 880 / 1360 480 / 1360 Output Total 1775 / 3650 1500 / 1500 Balance -695 / -1124.667 -620 / -140 480 / -140 Intake: Oral 1080 / 1780 880 / 1360 480 / 1360 Output: Urine 1775 / 3500 1500 / 1500 Other: Urine Color Yellow Yellow Urine Appearance Clear Clear Urine Odor Normal Normal Voiding Methods Urinal Toilet [facility] Medical History Cough Dysphonia HTN (hypertension) Hx of transient ischemic attack (TIA) Hyperlipidemia Kidney stone Latex allergy Lower back pain Near syncope Osteoarthritis Pharyngitis Radicular pain Rib pain Rotator cuff (capsule) sprain SOB (shortness of breath) Surgical History History of arthroscopy of left knee (Chronic) Arthroplasty of knee (Inactive) Colonoscopy - IV Sedation DISCECTOMY Endoscopic Carpal Tunnel release Lithotripsy Total replacement of hip Social History Smoking and Tabacco status: Never
--- NOTE | 2018-11-21 15:05 | CHAPLAIN ---
Mr. Nicole was in bed resting when I visited, and easily become engaged n conversation telling me about his knee surgery as well as previous hip surgery and another needed knee and hip surgery. He shared some personal history, telling me about moving to [place] after growing up in [place], and then [place] from [place] about 20 years ago. He said he has told family members not visit.
[2018-11-21 15:10] VITALS: BP 102/63; RESP 20; TEMP 37; O2SAT 92
--- NOTE | 2018-11-21 15:40 | INDS_ITS ---
Date of service: 11/21/18 Time of Service: 14:00 PT Notes Date: 11/21/18 Referring Doctor: Dr. Cortés PT Orders: PT CONSULT: Status post left TKA Precautions: Fall, standard Treatment Date: 11/19/18 - 11/21/18 Patient Profile/Admitting Diagnosis: Patient admitted following left total knee replacement performed 11/19/18. He's participated in PT intervention for 5 sessions over the past 3 days, with significant improvements in mobility and activity tolerance during that time. PMHX: Hypertension, history of TIA, hyperlipidemia, history of kidney stones, low back pain status post discectomy, latex allergy, status post WENDY Social History/Home Situation: Patient lives in a single level home with his . He has one step to enter, as well as a step into his bedroom. His son and [id number] live next door, and call to check in on him during evaluation today. 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 Equipment Owned/DME: FW W, grab bars at steps Subjective: Patient presents to the PT room independently, stating he needed to get up and stretch his legs. He states that he's been trying to move throughout the day to prevent stiffness. He's hopeful he can return home later this afternoon. Objective: General Observation: No lines. Mental Status: A and O x3 Pain: Denies ROM: Right Upper Extremity: WFL Left Upper Extremity: WFL Right Lower Extremity: WFL Left Lower Extremity: Hip range of motion is grossly within normal limits. Left knee functionally allows 2-90 degrees of flexion. Strength: Right Upper Extremity: WFL Left Upper Extremity: WFL Right Lower Extremity: Hip flexion 5/5. Quads 5/5. Ankle dorsiflexion 5/5. Left Lower Extremity: Initially unable to perform SLR, with need for 25% assist for initial reps. After assisted performance, he's able to demonstrate independent SLR for 2 sets of 10 reps. Sensation: Intact distally Bed Mobility/Transfers: Supine?sit: independent Sit?stand: independent Stand?sit: independent Bed?chair: independent with FWW Gait: Patient ambulance 120 feet with FW W, WBAT left lower extremity, SBA. He ambulates 30' independently with FWW. Stairs: Patient is able to a send and descend therapeutic stairs (6 inches x4, 4 inches x6) with bilateral upper extremity support to rail and supervision only. Balance: Static Sitting: Normal Dynamic Sitting: Normal Static Standing: Fair Dynamic Standing: Fair Treatment: Today's session consisted of reevaluation, followed by instruction in therapeutic exercise program, as noted on flowsheet. Patient also received gait and transfer training, with cues for step through gait pattern, and verbal and visual cues for appropriate sit to stand transfers, which we practiced repetitively. He also received gentle mobilization of the right knee, within his pain tolerance. We reviewed his home exercise program, and exercises were indicated in his postoperative packet for home completion. Assessment: Patient is a 78 year old male referred to physical therapy services with the diagnosis of left knee OA, status post left TKA performed 11/19/18. He is participated in 5 PT sessions over the past 3 days, and has demonstrated significant improvements in safety, mobility and activity tolerance. All of his rehab goals have been met, and he is now appropriate for discharge from PT in acute care setting. Goals: Goals X1 week 1. Supine-Sit: Supervision (MET) 2. Sit-Supine: Supervision (MET) 3. Sit-Stand : Supervision (MET) 4. Stand-Sit: Supervision (MET) 5. Bed-Chair: Supervision with FW W (MET) 6. Chair-Bed: Supervision with FW W (MET) 7. Gait: Supervision with FW W times 50 feet (MET) 8. Stairs: Able to a send and descend single step with bilateral upper extremity support to rail (MET) 9. Independent with home exercise program (MET) Plan of Care/Treatment Plan: DC from PT services in acute care setting DISCHARGE RECOMMENDATIONS: Home, with no equipment needs anticipated TREATMENT CODE/TIME: 30 minutes ([id number], [id number])
== END 2018-11-21 16:30 | disposition home or self-care (01) | DRG 470 ==
LOC: SUR 07:34 → MS 10:30
PROVIDERS: Admitting Provider Student in an Organized Health Care Education/Training Program; PCP Internal Medicine; Visit Provider Student in an Organized Health Care Education/Training Program
PROC: 0SRD0J9 Replacement of Left Knee Joint with Synthetic Substitute, Cemented, Open Approach (ICD-10-PCS; CPT 27447; principal; 2018-11-19 07:30)
DX: M17.12 Unilateral primary osteoarthritis, left knee (principal); Z96.652 Presence of left artificial knee joint; I10 Essential (primary) hypertension; E78.5 Hyperlipidemia, unspecified; Z91.040 Latex allergy status; R11.10 Vomiting, unspecified
CPT/HCPCS: 27447; 76942; 97110; 97162; 97530; NC; J0690; J1885; J2250; J2405

== ENCOUNTER 2018-12-04 14:03 | Outpatient (CLI) | payer MEDICARE, OTHER, SELFPAY ==
--- NOTE | 2018-12-04 14:20 | DI.RAD_ITS ---
SYMPTOM/DIAGNOSIS: F/U LT TKA, PAIN LEG LENGTH AND LEFT KNEE: Note is made of a left total knee replacement. There is no evidence of hardware failure. The right knee shows moderate narrowing of the medial femoral tibial joint space and periarticular spurring, both medially and laterally. Chondrocalcinosis is present. Note is made of a left total hip replacement and moderate joint space narrowing of the right hip. The right lower extremity measures 100.6 cm. The left lower extremity measures 101.5 cm.
== END 2018-12-04 14:23 ==
PROVIDERS: PCP Internal Medicine; Visit Provider Student in an Organized Health Care Education/Training Program
DX: M17.12 Unilateral primary osteoarthritis, left knee (principal); Z96.652 Presence of left artificial knee joint; Z96.642 Presence of left artificial hip joint; Z47.1 Aftercare following joint replacement surgery
CPT/HCPCS: 73560; 77073

== ENCOUNTER → 2019-01-01 13:40 | Outpatient (BNVA) | payer MEDICARE, OTHER, SELFPAY | PROVIDERS: PCP Internal Medicine; Referring Provider Internal Medicine; Visit Provider Student in an Organized Health Care Education/Training Program | DX: Z47.1 Aftercare following joint replacement surgery (principal); Z96.652 Presence of left artificial knee joint ==

== ENCOUNTER 2019-02-24 15:11 | Outpatient (CLI) | payer MEDICARE, OTHER, SELFPAY ==
--- NOTE | 2019-02-24 15:06 | DI.RAD_ITS ---
SYMPTOM/DIAGNOSIS: RT HIP PAIN RIGHT HIP AND PELVIS: Comparison is made with 04/30/18. There has been no change in the left hip prosthesis. There is narrowing of mainly the superior joint space of the right hip. There is periarticular spurring but no femoral head flattening. The findings have slightly worsened when compared with the previous exam. There are mild degenerative changes of the SI joints. There are prominent osteophytes in the lower lumbar spine. IMPRESSION: Slight interval progression of degenerative changes of the right hip.
== END 2019-02-24 15:31 ==
PROVIDERS: PCP Internal Medicine; Referring Provider Internal Medicine; Visit Provider Student in an Organized Health Care Education/Training Program
DX: M25.551 Pain in right hip (principal); M16.11 Unilateral primary osteoarthritis, right hip; Z96.642 Presence of left artificial hip joint; M53.3 Sacrococcygeal disorders, not elsewhere classified
CPT/HCPCS: 99213; 99214; 73502

== ENCOUNTER 2019-03-06 00:38 | Outpatient (CLI) | payer MEDICARE, OTHER, SELFPAY ==
--- NOTE | 2019-03-06 10:37 | W.PROCNOTE ---
Date of service: 03/06/19 Time of Service: 10:37 Procedure Note Date of procedure: 03/06/19 Procedure: Right Hip Injection with Fluoroscopic Guidance Surgeon/Proceduralist/Physician: Cal Cortés Procedure Diagnosis: Right Hip Osteoarthritis Procedure Indications: Jayme has had persistent pain of the RIGHT hip and groin. Noninvasive measures have been tried. To serve as both diagnostic and therapeutic, an injection under fluoroscopy was recommended. I had discussed the risks of the procedure and the patient elected to proceed. Procedure Description: Jayme was greeted in the flouroscopy room. The correct side was identified and the consent was reviewed with the patient and signed. The patient was then placed in the supine position on the fluoroscopy table. The RIGHT hip was then prepped with Chloraprep. The anterolateral injection starting point was identiifed by bony landmarks and fluoroscopy. The skin and soft tissue in the tract of the injection was anesthetized with 1% Lidocaine. A spinal needle was then inserted deep into the hip joint at the level of the lateral femoral neck under fluoroscopic guidance. A small amount of Omnipaque solution was injected to confirm intraarticular placement. Once confirmed, the hip was injected with 6cc of 0.5% Bupivicaine and 80mg of Depo-Medrol. A bandaid was placed on the injection site. The patient tolerated the procedure well and noted improvement in pre-injection pain.
--- NOTE | 2019-03-06 11:47 | DI.RAD_ITS ---
SYMPTOMS/DIAGNOSIS: PRIMARY OSTEOARTHRITIS OF RIGHT HIP, M16.11 RIGHT HIP INJECTION: Fluoroscopy Time: 11.7 sec 1.96 mGy Under fluoroscopic guidance, Dr. Cortés positioned a needle in the right hip joint and carried out a joint injection. Please see the procedure report for further information.
[2019-03-06] MEDS: Omnipaque 300 MG/ML 10 ML BTL IJ (11:48)
[2019-03-06] MEDS: Bupivacaine 0.5% Pres-Free 10 ML VIAL 6 ML IJ (11:49)
[2019-03-06] MEDS: methylPREDNISolone ACETATE 80 MG/ML VIAL IM (14:19)
== END 2019-03-06 00:58 ==
PROVIDERS: PCP Internal Medicine; Visit Provider Student in an Organized Health Care Education/Training Program
DX: M16.11 Unilateral primary osteoarthritis, right hip (principal); M25.551 Pain in right hip
CPT/HCPCS: 20610; 77002; J1030; J1040

== ENCOUNTER 2019-04-24 00:54 | Outpatient (CLI) | payer MEDICARE, OTHER, SELFPAY ==
--- NOTE | 2019-04-24 07:09 | DI.RAD_ITS ---
SYMPTOM/DIAGNOSIS: RT HIP INJECTION, PRIMARY OA RT HIP, M16.11 RIGHT HIP INJECTION: Fluoroscopy Time: 10.6 seconds Fluoroscopy was utilized by Dr. Cortés during the performance of a right hip injection. Please refer to the procedure report for complete details.
--- NOTE | 2019-04-24 10:18 | W.PROCNOTE ---
Date of service: 04/24/19 Time of Service: 10:30 Procedure Note Date of procedure: 04/24/19 Procedure: Right Hip Injection with Fluoroscopic Guidance Surgeon/Proceduralist/Physician: Cal Cortés Procedure Diagnosis: Right Hip Osteoarthritis Procedure Indications: Bijan has had persistent pain of the RIGHT hip and groin. Noninvasive measures have been tried. For the purpose of pain control, an injection under fluoroscopy was recommended. I had discussed the risks of the procedure and the patient elected to proceed. Procedure Description: Bijan was greeted in the flouroscopy room. The correct side was identified and the consent was reviewed with the patient and signed. The patient was then placed in the supine position on the fluoroscopy table. The RIGHT hip was then prepped with Chloraprep. The anterolateral injection starting point was identiifed by bony landmarks and fluoroscopy. The skin and soft tissue in the tract of the injection was anesthetized with 1% Lidocaine. A spinal needle was then inserted deep into the hip joint at the level of the lateral femoral neck under fluoroscopic guidance. A small amount of Omnipaque solution was injected to confirm intraarticular placement. Once confirmed, the hip was injected with 6cc of 0.5% Bupivicaine and 80mg of Depo-Medrol. A bandaid was placed on the injection site. The patient tolerated the procedure well and noted improvement in pre-injection pain.
[2019-04-24] MEDS: Omnipaque 300 MG/ML 10 ML BTL IJ (10:54)
[2019-04-24] MEDS: Bupivacaine 0.5% Pres-Free 10 ML VIAL IJ (10:55)
[2019-04-24] MEDS: methylPREDNISolone ACETATE 80 MG/ML VIAL IM (10:55)
== END 2019-04-24 01:14 ==
PROVIDERS: PCP Internal Medicine; Visit Provider Student in an Organized Health Care Education/Training Program
DX: M16.11 Unilateral primary osteoarthritis, right hip (principal); M25.551 Pain in right hip
CPT/HCPCS: 20610; 77002; J1040

== ENCOUNTER 2019-06-16 11:13 | Emergency (ER) | payer MEDICARE, OTHER, SELFPAY ==
[2019-06-16] VITALS (26 sets, daily range): BP systolic 123–163; BP diastolic 87–108; PULSE 72–98; RESP 16; TEMP 36.4; O2SAT 93–96
--- NOTE | 2019-06-16 11:59 | DI.CT_ITS ---
SYMPTOM/DIAGNOSIS: RT NECK/ARM PAIN, R/O ARTERIAL PATHOLOGY CTA NECK: CT angiography was performed with multi slice acquisition and multi planar and 3D reconstruction. Calcific plaque is seen at the common carotid bulbs bilaterally, right greater than left. There is no significant stenosis. The left paravertebral artery is dominant. The basilar artery is somewhat tortuous. The [place] vasculature shows no significant stenosis. There is no gross evidence of an aneurysm. There is an enhancing 10 mm nodule in the right parotid and two other smaller enhancing lesions more inferiorly. They appear circumscribed. No abnormal areas of enhancement are seen in the brain. The visualized portions of the upper lobes appear clear. The thyroid and submandibular glands are unremarkable. There is no sinus or mastoid air cell opacification. Degenerative disc changes are seen in the cervical spine. IMPRESSION: Mild calcific plaque of both common carotid bulbs without evidence of significant stenosis. There is no evidence of dissection. The [place] vasculature appears intact. Enhancing nodules are seen in the right parotid gland.
--- NOTE | 2019-06-16 11:59 | DI.CT_ITS ---
SYMPTOM/DIAGNOSIS: RIGHT ARM, HIP PAIN, R/O AORTIC PATHOLOGY CHEST CT : CT angiography was performed with multi slice acquisition and multi planar and 3D reconstruction. No pleural or pericardial effusions or infiltrates are seen. The maximum dimension of the ascending aorta is 4.4 cm. There is some atherosclerotic change along the descending aorta. There is no aneurysm of the abdominal aorta. There is no evidence of branch vessel occlusion. The visualized portions of the bowel are unremarkable. There is mild low density in nodularity of the liver which could indicate mild cirrhosis. No varices or splenomegaly is seen. The pancreas and adrenals are unremarkable. There is a left renal cyst. Degenerative changes are seen in the spine. IMPRESSION: No evidence of pulmonary emboli, aortic dissection or other acute abnormality,
[2019-06-16 12:09] LABS: Abs Immature Grans 0.01 k/cumm (0.0-0.09); Absolute Basophil Count 0.02 k/cumm (0.0-0.2); Absolute Lymphocyte Count 1.17 k/cumm (1.2-3.4); Absolute Monocyte Count 0.42 k/cumm (0.11-0.7); Absolute Neutrophil Count 3.26 k/cumm (1.2-6.7); Basophils % 0.4; HCT 43.8 % (40.0-50.0); HGB 14.9 g/dL (13.5-17.5); Immature Grans % 0.2; Lymphocytes % 23.5; Mean Corpuscular Volume 97.1 fL (80-95); Mean Platelet Volume 9.6 fL (8.0-11.0); Monocytes % 8.4; Neutrophils % 65.5; Platelet Count 177 x1000/uL (130-400); RBC 4.51 m/cumm (4.50-6.00); RBC Distribution Width 12.7 % (11.8-14.1); White Blood Cell Count 4.98 k/cumm (4.4-10.8)
--- NOTE | 2019-06-16 12:24 | ED.GENADUL_ITS ---
Discharge Plan Disposition Patient Disposition: HOME Condition: Stable Discharge Details Chief Complaint: Orthopedic Clinical Impression: Arm pain, right, Right facial pain, Parotid nodule, Hypertension Primary Care Provider: Alcides Estrada ED Provider: Gaviota Garcia Home Meds and New Rx's Prescriptions: Continued Atorvastatin Calcium 10 MG tablet 10 mg PO DAILY RF: 0 aspirin 325 MG tablet 325 mg PO DAILY RF: 0 melatonin 3 MG tablet 3 mg PO HS PRNRF: 0 hydrochlorothiazide 12.5 MG capsule 12.5 mg PO DAILY RF: 0 sennosides-docusate sodium [Senna Laxative-Stool Softener] 8.6-50 mg Tablet 2 tab PO QHS PRNRF: 0 No Action oxycodone 5 mg tablet 5 mg PO Q6H MDD 20mg PRN (Reason: pain) Qty: 28 RF: 0 ibuprofen 600 mg tablet 600 mg PO TID PRN (Reason: pain) Qty: 60 RF: 3 acetaminophen 500 mg capsule 1,000 mg PO Q8H PRN (Reason: pain) Qty: 90 RF: 2 methocarbamol 750 mg Tablet 750 mg PO Q6H PRN PRNRF: 0 lidocaine [Lidoderm] 5 % adhesive patch,medicated 1 patch TP DAILY Qty: 15 RF: 0 Discharge Instructions Instructions: Diazepam (By mouth), Sialoadenitis (ED), Hypertension (ED) Additional Instructions: It is extremely important that you call as soon as possible to make an appointm ent to be seen in follow-up for this visit by an Ear, Nose, and Throat surgeon and also by your primary care doctor. Please return immediately to the emergency department if you develop any new or worsening symptoms, if your symptoms do not improve as expected, or if you become otherwise concerned. Please return immediately to the emergency department if you develop any new or worsening symptoms. Please do not take Valium with an 5 hours of taking Benadryl, alcohol, opiate pain medications, or any other sedating medications. Referrals: Heladio Dillon DO [OSTEOPATHIC DOCTOR] - Alcides Estrada MD [Primary Care Provider] - Discharge Data Discharge Date/Time-TO BE ENTERED AT DEPARTURE: 06/16/19 16:29 Medical Decision Making Jayme Nicole is a 78 y/o man with history of TIA, hypertension, high cholesterol who presented to the emergency department with right-sided neck, shoulder, and arm pain without trauma or other inciting event. On exam patient is very well and nontoxic appearing. Patient has subjective change in sensorium to the posterior aspect of his right forearm, otherwise sensation of the right arm is normal. Motor 5 out of 5 throughout. Cranial nerves intact. Benign cardiopulmonary exam. Abdomen benign. Concern for musculoskeletal issue of the neck, muscle spasm causing symptoms versus arterial pathology. Exam/history is not consistent with CVA, ACS, PE, sepsis, septic arthritis, impending airway compromise. Plan for screening labs, EKG, CTA carotid/thorax/abdomen, teleme try. Will monitor and reassess. CTA neck, thorax shows right-sided parotid nodule, no acute findings. Labs non- diagnostic. Plan for valium for likely msk pain, discussed plan for sialogogue use. Will repeat troponin. Second trop neg. Pt requests d/c to home, states that pain has improved and he thinks pain is likely muscle spasm. I had a lengthy discussion with the patient regarding return to emergency department precautions/red flags for which to return, home care, safe Valium use, and importance of outpatient follow-up. Patient verbalized understanding of the plan was amenable. All questions were answered. Patient was discharged home with clear plan for outpatient follow-up. EXAM: CT Angiography Neck With Contrast EXAM DATE/TIME: 06/16/2019 12:00 PM CLINICAL HISTORY: 78 years old, male; Other: Neck and R arm pain TECHNIQUE: Imaging protocol: Computed tomographic angiography images of the neck with intravenous contrast using CT angiography protocol. 3D rendering: MIP reconstructed images were created and reviewed. COMPARISON: No relevant prior studies available. FINDINGS: Mild to moderate atherosclerotic calcification at the level of the carotid bifurcations bilaterally right greater than left. No hemodynamically significant stenosis. Somewhat diminutive right vertebral artery. Approximate 1 cm hyperdense nodule in the right parotid gland most likely representing a benign process however additional evaluation or followup most likely will be needed. There are 2 additional smaller hyperdense regions. Please see the final report for details as to the local protocol for followup. Airway is widely patent. IMPRESSION: 1. No evidence of hemodynamically significant stenosis or vascular occlusion or dissection. 2. Incidental right parotid gland findings as described. EXAM: CT Angiography Chest With Contrast EXAM DATE/TIME: 06/16/2019 12:00 PM CLINICAL HISTORY: 78 years old, male; Other: R arm / hip pain TECHNIQUE: Imaging protocol: Computed tomographic angiography of the chest with intravenous contrast. 3D rendering: MIP reconstructed images were created and reviewed. COMPARISON: CR CHEST 2 VIEWS PA,LAT 06/25/2017 8:56 AM FINDINGS: No evidence of PE. No infiltrates. No pleural effusion. No pneumothorax. No adenopathy. Thoracic aorta unremarkable for age. IMPRESSION: No specific etiology identified for the patient's symptoms. Medical Records Medical records reviewed: Yes I reviewed the patient's medical records. Imaging Data Radiologic Study: Attestation: I personally reviewed and interpreted this imaging study as follows: Radiologist's impression: EXAM: CT Angiography Neck With Contrast EXAM DATE/TIME: 06/16/2019 12:00 PM CLINICAL HISTORY: 78 years old, male; Other: Neck and R arm pain TECHNIQUE: Imaging protocol: Computed tomographic angiography images of the neck with intravenous contrast using CT angiography protocol. 3D rendering: MIP reconstructed images were created and reviewed. COMPARISON: No relevant prior studies available. FINDINGS: Mild to moderate atherosclerotic calcification at the level of the carotid bifurcations bilaterally right greater than left. No hemodynamically significant stenosis. Somewhat diminutive right vertebral artery. Approximate 1 cm hyperdense nodule in the right parotid gland most likely representing a benign process however additional evaluation or followup most likely will be needed. There are 2 additional smaller hyperdense regions. Please see the final report for details as to the local protocol for followup. Airway is widely patent. IMPRESSION: 1. No evidence of hemodynamically significant stenosis or vascular occlusion or dissection. 2. Incidental right parotid gland findings as described. Exam(s) a CT:CT thorax & abdomen CTA SYMPTOM/DIAGNOSIS: RIGHT ARM, HIP PAIN, R/O AORTIC PATHOLOGY CHEST CT : CT angiography was performed with multi slice acquisition and multi planar and 3D reconstruction. No pleural or pericardial effusions or infiltrates are seen. The maximum dimension of the ascending aorta is 4.4 cm. There is some atherosclerotic change along the descending aorta. There is no aneurysm of the abdominal aorta. There is no evidence of branch vessel occlusion. The visualized portions of the bowel are unremarkable. There is mild low density in nodularity of the liver which could indicate mild cirrhosis. No varices or splenomegaly is seen. The pancreas and adrenals are unremarkable. There is a left renal cyst. Degenerative changes are seen in the spine. IMPRESSION: No evidence of pulmonary emboli, aortic dissection or other acute abnormality, Lab Data Lab results reviewed: Yes I reviewed the patient's lab results. Laboratory Tests Range/Units 06/16/19 06/16/19 06/16/19 12:00 12:00 15:04 WBC (4.4-10.8) k/cumm 4.98 RBC (4.50-6.00) m/cumm 4.51 Hgb (13.5-17.5) g/dL 14.9 Hct (40.0-50.0) % 43.8 MCV (80-95) fL 97.1 H MCH (27.0-33.0) pg 33.0 MCHC (32.0-36.0) g/dL 34.0 RDW (11.8-14.1) % 12.7 Plt Count (130-400) x1000/uL 177 MPV (8.0-11.0) fL 9.6 Immature Gran % 0.2 Neutrophils % 65.5 Lymphocytes % 23.5 Monocytes % 8.4 Eosinophils % 2.0 Basophils % 0.4 Absolute Neutrophils (1.2-6.7) k/cumm 3.26 Absolute Lymphocytes (1.2-3.4) k/cumm 1.17 L Absolute Monocytes (0.11-0.7) k/cumm 0.42 Absolute Eosinophils (0.0-0.7) k/cumm 0.10 Absolute Basophils (0.0-0.2) k/cumm 0.02 Sodium (136-145) mmol/L 139 Potassium (3.5-5.1) mmol/L 3.9 Chloride (98-107) mmol/L 101 Carbon Dioxide (21.0-32.0) mmol/L 29.9 Anion Gap (3-11) mmol/L 8.1 BUN (7-18) mg/dL 16 Creatinine (0.70-1.30) mg/dL 1.06 Estimated GFR/1.73 m2 (mL/min/1.73m2) >= 60.00 Glucose (70-100) mg/dL 123 H Calcium (8.5-10.1) mg/dL 9.4 Total Bilirubin (0.2-1.0) mg/dL 0.7 AST (15-37) U/L 16 ALT (16-63) U/L 16 Alkaline Phosphatase (46-116) U/L 93 Troponin I (0.00-0.06) ng/mL < 0.05 < 0.05 Total Protein (6.4-8.2) g/dL 7.8 Albumin (3.4-5.0) g/dL 3.9 ECG Data Attestation: I personally reviewed and interpreted this ECG (s) as follows: Interpretation: EKG shows sinus rhythm at 77, normal axis, no acute ischemic changes, nondiagnostic EKG HPI General Mode of arrival: ambulatory . Date/Time Provider Initiated Documentation: 06/16/19 11:33 . Limitations to Documentation: no limitations . Information obtained by: patient, family, RN notes reviewed and old records reviewed . HPI Narrative: Jayme Nicole is a 78 y/o man with history of TIA in the past, hypertension, hyperlipidemia presenting to the emergency department with neck pain, arm pain, and hip pain on the right. Patient reports that he has had long-standing right-sided hip pain that he believes was secondary to arthritis. Pain has been ongoing for at least a year. 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 Patient reports that his hip pain has gradually been increasing, and over the past month he has had swelling at the right hip joint towards the end of the day. Swelling is improved in the morning and then worsens throughout the day. He reports that this has been unchanged, not worsening or improving over the past month. He has seen Dr. Cortés for this, and a right hip replacement is planned. Patient reports that approximately 1 week ago he noticed having pain in his right neck radiating into his right jaw and radiating into his right shoulder. He also began having shocks of pain intermittently into the right arm, particularly while he is writing. He noticed that his right forearm feels intermittently somewhat numb. He denies changes to his speech, any other pain, weakness of his arms or his legs, vomiting, diarrhea, shortness of breath, cough, visual changes, pain inside his mouth, ear pain. Has been eating and drinking as usual. Has been going about his daily activities without issue. Related Data Home Medications Medication Instructions Recorded Confirmed Atorvastatin Calcium 10 mg PO DAILY tab-cap 08/10/17 06/27/19 aspirin 325 mg PO DAILY tab-cap 08/10/17 06/27/19 hydrochlorothiazide 12.5 mg PO DAILY tab-cap 08/10/17 06/27/19 melatonin 3 mg PO HS PRN 08/10/17 06/27/19 sennosides-docusate sodium [Senna 2 tab PO QHS PRN 11/13/18 06/27/19 Laxative-Stool Softener] lidocaine [Lidoderm] 1 patch TP DAILY #15 each 06/20/19 06/27/19 methocarbamol 750 mg PO Q6H PRN PRN 06/20/19 06/27/19 acetaminophen 500 mg capsule 1,000 mg PO Q8H PRN #90 cap 06/27/19 06/27/19 ibuprofen 600 mg tablet 600 mg PO TID PRN #60 tab 06/27/19 06/27/19 oxycodone 5 mg tablet 5 mg PO Q6H PRN #28 tab MDD 20mg 06/27/19 06/27/19 Previous Rx's Medication Instructions Recorded lidocaine [Lidoderm] 1 patch TP DAILY #15 each 06/20/19 acetaminophen 500 mg capsule 1,000 mg PO Q8H PRN #90 cap 06/27/19 ibuprofen 600 mg tablet 600 mg PO TID PRN #60 tab 06/27/19 oxycodone 5 mg tablet 5 mg PO Q6H PRN #28 tab MDD 20mg 06/27/19 Allergies Allergy/AdvReac Type Severity Reaction Status Date / Time codeine AdvReac Mild Verified 06/27/19 08:22 enalapril AdvReac Mild Verified 06/27/19 08:22 latex AdvReac Mild Verified 06/27/19 08:22 lisinopril AdvReac Mild Verified 06/27/19 08:22 pravastatin AdvReac Mild Verified 06/27/19 08:22 General Stated Complaint: Orthopedic DAVID: 3 Review of Systems Review of Systems Constitutional: denies fevers Eyes: denies eye pain ENT: denies dental pain, sore throat, reports right sided jaw pain Cardiovascular: denies chest pain, edema Respiratory: denies SOB, cough GI: denies abdominal pain, vomiting, diarrhea : denies flank pain MSK: denies back pain, reports right neck pain, right arm and shoulder pain Skin: denies rash Neuro: denies headaches, weakness, reports intermittent right forearm numbness [facility] Medical History Cough Dysphonia HTN (hypertension) Hx of transient ischemic attack (TIA) Hyperlipidemia Kidney stone Latex allergy Lower back pain Near syncope Osteoarthritis Pharyngitis Radicular pain Rib pain Rotator cuff (capsule) sprain SOB (shortness of breath) Social History Smoking/Tobacco Use Status: Never Alcohol Intake: never Drug use: Never Substance use type: does not use Do you feel safe in your relationship?: Yes Exam Narrative Exam Narrative: Constitutional: well and [id number], pleasant, conversing normally HENT: head atraumatic/normocephalic/normal inspection, mucous membranes moist, normal oropharynx without edema or intraoral lesion, right jaw nontender to palpation, no TMJ tenderness on the right, no trismus, bilateral TMs normal, bilateral canals normal, bilateral external ears normal Eyes: conjunctiva normal, sclera normal, pupils 3mm b/l, extraocular movements intact, no nystagmus Neck: no stridor, supple, trachea midline, no cervical vertebral tenderness, no cervical paraspinal tenderness, no tenderness of the trapezius or deltoid on the right, no edema, no overlying skin changes, no carotid bruit, full range of motion (painless), no meningismus Chest: normal inspection Resp: normal work of breathing, LCTAB Cardio: normal rate, normal rhythm, no murmur appreciated GI: abdomen soft, non-tender, non-distended, no mass Back: normal inspection, no rash Skin: warm, dry, normal color, no rash Neuro: alert, not altered, motor 5 out of 5 all extremities, cranial nerves II through XII intact, normal tone, patient reports reduced sensation to the dorsal aspect of the right forearm without objective sensation loss, otherwise normal sensation of the left and right arms Ext: no edema, no tenderness of the right scapula, clavicle, or humerus, radial pulses intact and symmetric, no skin changes to the right arm. Right hip TTP laterally, no anterior or posterior TTP, no edema, no overlying skin changes, able to range with some pain which Pt reports is at baseline, DP pulses intact and symmetric Psych: normal mood, normal affect, normal behavior Course Vital Signs Temperature 36.4 C L 06/16/19 11:21 Pulse 84 06/16/19 11:21 Respiratory Rate 16 09/02/19 11:21 Blood Pressure 141/99 H 06/16/19 11:21 Pulse Oximetry 96 06/16/19 11:21 Temperature 36.4 C L 06/16/19 11:21 Temperature Source Skin 06/16/19 11:21 Pulse 84 06/16/19 11:21 Respiratory Rate 16 06/16/19 11:21 Respiratory Effort Non-Labored 06/16/19 11:21 Blood Pressure 137/87 06/16/19 12:17 Blood Pressure Position Sitting 06/16/19 11:21 Pulse Oximetry 96 06/16/19 11:21 Oxygen Delivery Method Room Air 06/16/19 11:21 Oxygen Flow Rate 0 06/16/19 11:21 Pain Level 5 06/16/19 11:21 Lab/Test Results Lab/Test Results: Laboratory Tests Range/Units 06/16/19 12:00 WBC (4.4-10.8) k/cumm 4.98 RBC (4.50-6.00) m/cumm 4.51 Hgb (13.5-17.5) g/dL 14.9 Hct (40.0-50.0) % 43.8 MCV (80-95) fL 97.1 H MCH (27.0-33.0) pg 33.0 MCHC (32.0-36.0) g/dL 34.0 RDW (11.8-14.1) % 12.7 Plt Count (130-400) x1000/uL 177 MPV (8.0-11.0) fL 9.6 Immature Gran % 0.2 Neutrophils % 65.5 Lymphocytes % 23.5 Monocytes % 8.4 Eosinophils % 2.0 Basophils % 0.4 Absolute Neutrophils (1.2-6.7) k/cumm 3.26 Absolute Lymphocytes (1.2-3.4) k/cumm 1.17 L Absolute Monocytes (0.11-0.7) k/cumm 0.42 Absolute Eosinophils (0.0-0.7) k/cumm 0.10 Absolute Basophils (0.0-0.2) k/cumm 0.02
[2019-06-16 12:26] LABS: ALT 16 U/L (16-63); AST 16 U/L (15-37); Albumin 3.9 g/dL (3.4-5.0); Alkaline Phosphatase 93 U/L (46-116); Anion Gap 8.1 mmol/L (3-11); BUN 16 mg/dL (7-18); Bilirubin, Total 0.7 mg/dL (0.2-1.0); CO2 29.9 mmol/L (21.0-32.0); CREATININE 1.06 mg/dL (0.70-1.30); Calcium 9.4 mg/dL (8.5-10.1); Chloride 101 mmol/L (98-107); Glucose 123 mg/dL (70-100); Potassium 3.9 mmol/L (3.5-5.1); Sodium 139 mmol/L (136-145); Total Protein 7.8 g/dL (6.4-8.2); Troponin I < 0.05 ng/mL (0.00-0.06)
[2019-06-16] MEDS: Omnipaque 350 MG/ML 100 ML BTL IJ ×2 (13:27→13:28)
--- NOTE | 2019-06-16 13:51 | DI.VRAD_ITS ---
EXAM: CT Angiography Chest With Contrast EXAM DATE/TIME: 06/16/2019 12:00 PM CLINICAL HISTORY: 78 years old, male; Other: R arm / hip pain TECHNIQUE: Imaging protocol: Computed tomographic angiography of the chest with intravenous contrast. 3D rendering: MIP reconstructed images were created and reviewed. COMPARISON: CR CHEST 2 VIEWS PA,LAT 06/25/2017 8:56 AM FINDINGS: No evidence of PE. No infiltrates. No pleural effusion. No pneumothorax. No adenopathy. Thoracic aorta unremarkable for age. IMPRESSION: No specific etiology identified for the patient's symptoms. EXAM: CT Angiography Abdomen With Contrast EXAM DATE/TIME: 06/16/2019 12:00 PM CLINICAL HISTORY: 78 years old, male; Other: R arm / hip pain TECHNIQUE: Imaging protocol: Computed tomographic angiography images of the abdomen with intravenous contrast material. 3D rendering: MIP reconstructed images were created and reviewed. COMPARISON: CR CHEST 2 VIEWS PA,LAT 06/25/2017 8:56 AM FINDINGS: There is slight irregularity to the liver suggesting intrinsic liver disease. No abnormal fluid collections. Mild atherosclerotic changes to the abdominal aorta without evidence of aneurysmal dilatation or dissection. No obstructive uropathy. Visualized bowel unremarkable. IMPRESSION: Unremarkable exam for age with no specific etiology identified for the patient's symptoms. Dictated and Authenticated by: Dallas Casas MD. Ordering:KANCHAN Meek MD
--- NOTE | 2019-06-16 13:56 | DI.VRAD_ITS ---
EXAM: CT Angiography Neck With Contrast EXAM DATE/TIME: 06/16/2019 12:00 PM CLINICAL HISTORY: 78 years old, male; Other: Neck and R arm pain TECHNIQUE: Imaging protocol: Computed tomographic angiography images of the neck with intravenous contrast using CT angiography protocol. 3D rendering: MIP reconstructed images were created and reviewed. COMPARISON: No relevant prior studies available. FINDINGS: Mild to moderate atherosclerotic calcification at the level of the carotid bifurcations bilaterally right greater than left. No hemodynamically significant stenosis. Somewhat diminutive right vertebral artery. Approximate 1 cm hyperdense nodule in the right parotid gland most likely representing a benign process however additional evaluation or followup most likely will be needed. There are 2 additional smaller hyperdense regions. Please see the final report for details as to the local protocol for followup. Airway is widely patent. IMPRESSION: 1. No evidence of hemodynamically significant stenosis or vascular occlusion or dissection. 2. Incidental right parotid gland findings as described. . Dictated and Authenticated by: Dallas Casas MD. Ordering:KANCHAN Meek MD
[2019-06-16 15:32] LABS: Troponin I < 0.05 ng/mL (0.00-0.06)
[2019-06-16] MEDS: diazePAM 2 MG TAB PO (15:57)
== END 2019-06-16 16:29 | disposition home or self-care (01) ==
PROVIDERS: Emergency Provider Student in an Organized Health Care Education/Training Program; PCP Internal Medicine
DX: R51 Headache (principal); M25.511 Pain in right shoulder; M79.631 Pain in right forearm; R20.0 Anesthesia of skin; K11.9 Disease of salivary gland, unspecified; I10 Essential (primary) hypertension
CPT/HCPCS: 36415; 70498; 71275; 74175; 80053; 93005; 99285; 84484; 85025; 93010; 99284; J3490

== ENCOUNTER 2019-06-20 12:37 | Emergency (ER) | payer MEDICARE, OTHER, SELFPAY ==
[2019-06-20] VITALS (19 sets, daily range): BP systolic 129–168; BP diastolic 94–113; PULSE 69–93; RESP 12–30; TEMP 36.6–37; O2SAT 90–98
--- NOTE | 2019-06-20 12:50 | ED.GENADUL_ITS ---
Discharge Plan Disposition Patient Disposition: HOME Condition: Stable Discharge Details Chief Complaint: Chest Pain Clinical Impression: Cervical radiculopathy, Chest wall pain, Herpes zoster Primary Care Provider: Alcides Estrada ED Provider: Claudia Ramos Home Meds and New Rx's Prescriptions: New oxycodone 5 mg tablet 5 mg PO Q6H PRN (Reason: pain) Qty: 14 RF: 0 valacyclovir 1 gram tablet 1,000 mg PO TID 7 Days Qty: 21 RF: 0 lidocaine [Lidoderm] 5 % adhesive patch,medicated 1 patch TP DAILY Qty: 15 RF: 0 Continued ibuprofen 600 mg tablet 600 mg PO TID PRN (Reason: pain) Qty: 60 RF: 3 Atorvastatin Calcium 10 MG tablet 10 mg PO DAILY RF: 0 aspirin 325 MG tablet 325 mg PO DAILY RF: 0 melatonin 3 MG tablet 3 mg PO HS PRNRF: 0 hydrochlorothiazide 12.5 MG capsule 12.5 mg PO DAILY RF: 0 methocarbamol 750 mg Tablet 750 mg PO Q6H PRN PRNRF: 0 sennosides-docusate sodium [Senna Laxative-Stool Softener] 8.6-50 mg Tablet 2 tab PO QHS PRNRF: 0 acetaminophen 500 mg capsule 1,000 mg PO Q8H PRN (Reason: pain) Qty: 90 RF: 2 Discharge Instructions Instructions: Shingles (ED), Cervical Radiculopathy (ED), Chest Wall Pain (ED) Additional Instructions: Alternate Tylenol and Motrin as needed and directed for pain. Take the oxycodone for pain not relieved with Tylenol or Motrin. You can continue to take your muscle relaxers as directed. Take the antivirals as directed until finished. Call your primary care doctor's office today or Sunday to schedule follow-up appointment for reevaluation next week. Return to the emergency department if you develop any worsening or new concerning symptoms. Discharge Data Discharge Physician: Claudia Ramos Medical Decision Making 78-year-old male with a history of hypertension, TIA who presents with right sided chest, neck, upper extremity pain and right hand tingling for the past 4 weeks and a right hand pruritic and tender rash since this morning. EKG on arrival notes a rate of 82, sinus with no acute ST-T wave ischemic changes. Patient was seen here 4 days ago for the same complaint, physician note not completed but it appears that he had lab work and imaging including CT neck, chest and abdomen all of which was negative for acute findings and he was sent home with Valium. He saw his PCP yesterday and was given Robaxin for possible muscle spasm. Presentation today does appear more consistent with musculoskeletal/peripheral neuropathy, or possibly herpes zoster due to pruritic and painful rash to right hand which would fit a rash developing after weeks of pain. Will give a dose of oxycodone and place Lidoderm patch. If work-up negative, will likely treat with antivirals with follow-up with primary care doctor. 1345 --labs and imaging reviewed and unremarkable. Troponin negative. Chest x- ray negative. 1430 --patient feels much better after oxycodone and Lidoderm patch. With patient's overall symptom presentation, could be a cervical radiculopathy which may be associated with herpes zoster. Do not suspect an acute central process. Patient feels good to go home. We will send home with a prescription for oxycodone and Lidoderm patch in addition to valacyclovir. 1 dose of valacyclovir given here. He is advised to call his primary care doctor today to schedule follow-up appointment for reevaluation next week and to return here with any concerns. Medical Records Medical records reviewed: Yes I reviewed the patient's medical records. ECG Data Attestation: I personally reviewed and interpreted this ECG (s) as follows: Interpretation: rate of 82, sinus, no acute ST elevation or depression. LA 164. QTc 434. QRS 98. HPI General Mode of arrival: ambulatory . Date/Time Provider Initiated Documentation: 06/20/19 12:38 . Limitations to Documentation: no limitations . Information obtained by: patient . HPI Narrative: Patient is a 78-year-old male with a history of hypertension, TIA, osteoarthritis who presents with right chest, right scapula, right upper extremity pain along with tingling in right hand for the past 3 to 4 weeks. He states the pain is constant and worse with movement of his right upper extremity. He was seen here 4 days ago for the same complaint and diagnosed with possibly a muscle strain and sent home with Valium. He followed up with his primary care doctor yesterday who agreed it may be a muscle strain and was started on Robaxin. Patient states he awoke this morning and noted a tender, itchy rash to his right palmar hand. He states the rash is somewhat improved since this morning. He denies any fever, known injury, short ness of breath, nausea, vomiting, dizziness. He denies any other new meds, or exposures. He states he shook his friend's hand approximately 1 month ago who was diagnosed with shingles. Patient states he has been taking 1000 mg of Tylenol twice daily and 600 mg of Advil 3 times daily without relief. Related Data Home Medications Medication Instructions Recorded Confirmed Atorvastatin Calcium 10 mg PO DAILY tab-cap 08/10/17 06/20/19 aspirin 325 mg PO DAILY tab-cap 08/10/17 06/20/19 hydrochlorothiazide 12.5 mg PO DAILY tab-cap 08/10/17 06/20/19 melatonin 3 mg PO HS PRN 08/10/17 06/20/19 sennosides-docusate sodium [Senna 2 tab PO QHS PRN 11/13/18 06/20/19 Laxative-Stool Softener] acetaminophen 1,000 mg PO Q8H PRN #90 cap 11/21/18 06/20/19 ibuprofen 600 mg tablet 600 mg PO TID PRN #60 tab 03/06/19 06/20/19 lidocaine [Lidoderm] 1 patch TP DAILY #15 each 06/20/19 methocarbamol 750 mg PO Q6H PRN PRN 06/20/19 06/20/19 oxycodone 5 mg PO Q6H PRN #14 tab 06/20/19 valacyclovir 1,000 mg PO TID 7 Days #21 tab 06/20/19 Previous Rx's Medication Instructions Recorded acetaminophen 1,000 mg PO Q8H PRN #90 cap 11/21/18 ibuprofen 600 mg tablet 600 mg PO TID PRN #60 tab 03/06/19 lidocaine [Lidoderm] 1 patch TP DAILY #15 each 06/20/19 oxycodone 5 mg PO Q6H PRN #14 tab 06/20/19 valacyclovir 1,000 mg PO TID 7 Days #21 tab 06/20/19 Allergies Allergy/AdvReac Type Severity Reaction Status Date / Time codeine AdvReac Mild Verified 06/16/19 11:25 enalapril AdvReac Mild Verified 06/16/19 11:25 latex AdvReac Mild Verified 06/16/19 11:25 lisinopril AdvReac Mild Verified 06/16/19 11:25 pravastatin AdvReac Mild Verified 06/16/19 11:25 General Stated Complaint: Chest Pain DAVID: 3 Review of Systems Review of Systems All systems reviewed & are unremarkable except as noted in HPI and below Constitutional Reports as per HPI, Denies chills and Denies fever(s) Eyes Denies blurry vision ENT Denies dizziness, Denies sore throat and Denies throat swelling Cardiovascular Reports chest pain and Denies dyspnea Respiratory Denies cough and Denies dyspnea Gastrointestinal Denies abdominal pain, Denies diarrhea and Denies vomiting Genitourinary Denies hematuria and Denies dysuria Musculoskeletal Denies back pain and Denies numbness Integumentary/Breasts Denies lesions and Denies rash Neurologic Denies dizziness, Denies focal weakness, Denies numbness and Reports paresthesias (Right hand for 1 month) Allergic/Immunologic Denies throat swelling PFSH Medical History Cough Dysphonia HTN (hypertension) Hx of transient ischemic attack (TIA) Hyperlipidemia Kidney stone Latex allergy Lower back pain Near syncope Osteoarthritis Pharyngitis Radicular pain Rib pain Rotator cuff (capsule) sprain SOB (shortness of breath) Surgical History Arthroplasty of knee (Inactive) Colonoscopy - IV Sedation DISCECTOMY Endoscopic Carpal Tunnel release B/L History of arthroscopy of left knee (Chronic) Lithotripsy Total replacement of hip LEFT Social History Smoking/Tobacco Use Status: Never Alcohol Intake: never Drug use: Never Substance use type: does not use Do you feel safe in your relationship?: Yes Exam Const General: cooperative, healthy appearing and no acute distress HENID Head: normal to inspection Face and sinus: normal facial exam Eyes General: appearance normal, both eyes and all related structures EOM: EOM intact bilaterally Neck Neck: normal visual inspection and No submandibular swelling Lymphatic: no lymphadenopathy noted Chest Chest: normal inspection of the chest Chest/axillae images: 1. Tenderness to palpation R side of chest and R shoulder/R scapula Resp Effort & Inspection: normal respiratory effort and able to speak in complete sentences Auscultation: clear to auscultation bilaterally Cardio Rate: regular rate Rhythm: regular rhythm GI Inspection: normal to inspection Palpation: soft, not firm, not rigid and nontender Auscultation: normal bowel sounds Back/Spine/Pelvis Pelvis: no pain with anterior-posterior compression Skin Other: Scattered erythematous papules approximately 2 to 3 mm in size on right palmar hand. No rash noted to remainder of right upper extremity, right chest or right back. Neuro General: alert, awake and oriented x3 Cranial Nerves: CN's II-XI intact bilaterally Cognition: normal cognition Speech: speech normal Motor: muscle tone normal throughout and strength 5/5 throughout Sensory Exam: no sensory deficits noted Other: Muscle strength 5/5 bilateral upper extremities including radial/uln ar/median nerve motor function. Extrem General: full ROM and normal capillary refill Other: Pain in right upper extremity with range of motion. There are scattered erythematous papules approximately 2 to 3 mm in size on the right palmar hand that are significantly tender to touch but without evidence of acute cellulitis, induration, fluctuance. There are no obvious vesicles. Bilateral radial and ulnar pulses intact. Cap refill less than 2 seconds. Psych Appearance: grossly normal Mental Status: mental status grossly normal Speech and Movement: speech and movement normal Affect: normal affect Course Vital Signs Temperature 97.9 F 06/20/19 12:40 Pulse 86 06/20/19 12:40 Respiratory Rate 16 06/20/19 12:40 Blood Pressure 139/103 H 06/20/19 12:40 Pulse Oximetry 98 06/20/19 12:40 Temperature 97.9 F 06/20/19 12:40 Temperature Source Skin 06/20/19 12:40 Pulse 86 06/20/19 12:40 Respiratory Rate 16 06/20/19 12:40 Respiratory Effort Non-Labored 06/20/19 12:46 Respiratory Depth Normal 06/20/19 12:46 Blood Pressure 139/103 H 06/20/19 12:40 Pulse Oximetry 98 06/20/19 12:40 Oxygen Delivery Method Room Air 06/20/19 12:40 Oxygen Flow Rate 0 06/20/19 12:40
[2019-06-20 13:08] LABS: Abs Immature Grans 0.01 k/cumm (0.0-0.09); Absolute Basophil Count 0.02 k/cumm (0.0-0.2); Absolute Eosinophil Count 0.08 k/cumm (0.0-0.7); Absolute Lymphocyte Count 1.13 k/cumm (1.2-3.4); Absolute Monocyte Count 0.68 k/cumm (0.11-0.7); Basophils % 0.3; Eosinophils % 1.4; HGB 15.7 g/dL (13.5-17.5); Immature Grans % 0.2; Lymphocytes % 19.4; Mean Corp. HGB Concentration 34.9 g/dL (32.0-36.0); Mean Corpuscular Hemoglobin 33.1 pg (27.0-33.0); Mean Corpuscular Volume 94.7 fL (80-95); Mean Platelet Volume 9.8 fL (8.0-11.0); Monocytes % 11.7; Platelet Count 181 x1000/uL (130-400); RBC 4.75 m/cumm (4.50-6.00); RBC Distribution Width 12.5 % (11.8-14.1); White Blood Cell Count 5.82 k/cumm (4.4-10.8)
[2019-06-20 13:25] LABS: ALT 19 U/L (16-63); AST 16 U/L (15-37); Albumin 4.1 g/dL (3.4-5.0); Alkaline Phosphatase 88 U/L (46-116); Anion Gap 9.6 mmol/L (3-11); BUN 13 mg/dL (7-18); Bilirubin, Total 0.7 mg/dL (0.2-1.0); CO2 29.4 mmol/L (21.0-32.0); CREATININE 1.07 mg/dL (0.70-1.30); Calcium 9.3 mg/dL (8.5-10.1); Chloride 98 mmol/L (98-107); Glucose 97 mg/dL (70-100); Magnesium 1.8 mg/dL (1.8-2.4); Potassium 3.7 mmol/L (3.5-5.1); Sodium 137 mmol/L (136-145); Total Protein 8.1 g/dL (6.4-8.2)
--- NOTE | 2019-06-20 13:25 | DI.RAD_ITS ---
SYMPTOMS/DIAGNOSIS: RT SIDED CHEST PAIN, ? ACUTE DISEASE PA AND LATERAL CHEST: The heart is not enlarged. The lungs are generally clear. Questionable nodular density projected anteriorly on the lateral view, this finding is indeterminate. However the patient had a negative chest CT four days ago and this is unlikely to represent a mass or significant consolidation. No pleural effusion seen. CONCLUSION: No evidence of acute process.
[2019-06-20] MEDS: Lidocaine 5% Patch 1 PATCH TP (13:28)
[2019-06-20 13:29] LABS: Troponin I < 0.05 ng/mL (0.00-0.06)
[2019-06-20] MEDS: oxyCODONE 5 MG TAB PO (13:29)
[2019-06-20] MEDS: valACYclovir 1,000 MG TAB 1000 MG PO (15:03)
--- NOTE | 2019-06-20 15:04 | NUR.NOTE ---
Nursing Note: pt alert/oriented/ambulatory. discharged to home. instructions reviewed, understanding verbalized. VSS IV removed.
== END 2019-06-20 15:03 | disposition home or self-care (01) ==
PROVIDERS: Emergency Provider Physician Assistant; PCP Internal Medicine
DX: R07.89 Other chest pain (principal); M54.12 Radiculopathy, cervical region; B02.9 Zoster without complications; I10 Essential (primary) hypertension
CPT/HCPCS: 80053; 93005; 99285; 71046; 83735; 84484; 85025; 93010

== ENCOUNTER → 2019-06-27 08:21 | Outpatient (BNVA) | payer MEDICARE, OTHER, SELFPAY | PROVIDERS: PCP Internal Medicine; Referring Provider Internal Medicine; Visit Provider Student in an Organized Health Care Education/Training Program | DX: B02.9 Zoster without complications (principal) | CPT/HCPCS: 99214 ==

== ENCOUNTER 2019-07-18 08:57 | Outpatient (CLI) | payer MEDICARE, OTHER, SELFPAY ==
--- NOTE | 2019-07-18 08:15 | HPE_ITS ---
Assessment and Plan Assessment and plan (1) Primary osteoarthritis of right hip: Status: Chronic Assessment and plan: Plan: Patient is a reliable historian and denies any areas of skin breakdown along the left groin and anterior leg. Educated patient that if they develop any lesions, redness or skin breakdown to contact office as skin concerns would be a reason to cancel surgery. Patient gives verbal understanding. Educated patient on surgery covering surgical technique via models, recovery process, benefits and risks including but not limited to risk of infection, blood clot, fracture, leg length discrepancy, numbness/tingling, damage to soft tissue/blood vessels/nerves in detail. After discussion patient gives verbal understanding of risks and elects to proceed with scheduling surgery. Patient had opportunity to have questions answered to their satisfaction. They will contact office if issues arise. Patient will continue to be scheduled for right total hip replacement with Dr. Cortés. History of Present Illness Narrative: Mr. Nicole is a 78-year-old male who presents to clinic for preoperative appointment for right WENDY. Patient has been seen in clinic numerous times for his right hip pain. He underwent an injection on 03/06/19 which provided very little relief. He continues to have right deep groin pain that is also present on occasion more posteriorly. Pain is constant but is slightly alleviated with laying down. Pain is aggravated with getting into a car, walking, ascending hills/stairs, unable to get his right shoe on. His hip pain has been so aggravated he has to have assistive devices to put on his socks and shoe on the right side. Has been taking oxycodone by his PCP recently due to shingles outbreak and acetaminophen which helps to dull the pain. Denies any known trauma or injuries to the right hip. Denies any numbness or tingling. Due to his continued pain due to DJD he was offered surgical intervention and was eager to proceed. Patient feels that his right leg has always been slightly shorter than his left; reports no change in his leg lengths since his left WENDY. Pertinent Surgical Information Denies past medical history of: cardiac issues, angina, asthma, COPD, sleep apnea, liver issues, hepatitis, gastrointestinal issues, ulcers, bleeding disorders, seizures, migraines, anxiety, depression, diabetes, autoimmune disorders, thyroid issues Denies prior complications from surgery or anesthesia. Review of Systems Constitutional Constitutional: Denies fever(s), Denies frequent falls and Denies headache(s) Eyes Eyes: Denies change in vision ENT Ears, Nose, Mouth, and Throat: Denies dizziness, Denies ear discharge, Denies headache(s), Denies epistaxis, Denies nasal discharge and Denies sore throat Cardiovascular Cardiovascular: Denies chest pain, Denies rapid heart rate, Denies irregular heart rhythm, Denies palpitations, Denies dyspnea, Denies dyspnea on exertion, Denies orthopnea, Denies paroxysmal nocturnal dyspnea and Denies slow heart rate Respiratory Respiratory: Reports cough (chronic; denies any recent change), Denies dyspnea, Denies dyspnea on exertion and Denies wheezing Gastrointestinal Gastrointestinal: Denies abdominal pain, Denies melena, Denies hematochezia, Denies constipation, Denies diarrhea, Denies nausea and Denies vomiting Genitourinary Genitourinary: Denies hematuria, Denies dysuria and Denies urinary urgency Musculoskeletal Musculoskeletal: Reports as per HPI, Reports numbness (due to shingles in his right arm; onset ~6wks ) and Denies tingling Neurologic Neurologic: Denies dizziness, Denies frequent falls, Denies headache(s), Reports numbness (due to shingles in his right arm; onset ~6wks ) and Denies tingling Psychiatric Psychiatric: Denies anxiety and Denies depression Endocrine Endocrine: Denies palpitations Allergic/Immunologic Allergic/Immunologic: Denies wheezing PFSH Medical History Cough Dysphonia HTN (hypertension) Hx of transient ischemic attack (TIA) Hyperlipidemia Kidney stone Latex allergy Lower back pain Osteoarthritis Pharyngitis Radicular pain Rotator cuff (capsule) sprain Shingles (Acute) rt hand (healing pustules) and rt arm pain up to rt shoulder and rt side of his back per patient. SOB (shortness of breath) Surgical History (Updated 07/18/19 @ 18:05 by Melania Nicole) Colonoscopy - IV Sedation DISCECTOMY Endoscopic Carpal Tunnel release B/L History of arthroscopy of left knee (Chronic) History of cataract surgery (Chronic) Lithotripsy Total replacement of hip LEFT Family History (Updated 07/18/19 @ 09:28 by Tayla Leonard RN) Father Cirrhosis Social History Smoking/Tobacco Use Status: Never Alcohol Intake: never Drug use: Never Substance use type: does not use Do you feel safe in your relationship?: Yes Meds Home Medications and Allergies Home Medications Medication Instructions Recorded Confirmed Type Atorvastatin Calcium 10 mg PO DAILY tab-cap 08/10/17 07/18/19 History aspirin 325 mg PO DAILY tab-cap 08/10/17 07/18/19 History hydrochlorothiazide 25 mg PO DAILY tab-cap 08/10/17 07/18/19 History sennosides-docusate sodium [Senna 2 tab PO QHS PRN 11/13/18 07/18/19 History Laxative-Stool Softener] lidocaine [Lidoderm] 1 patch TP DAILY #15 each 06/20/19 07/18/19 Rx methocarbamol 750 mg PO Q6H PRN PRN 06/20/19 07/18/19 History acetaminophen 500 mg capsule 1,000 mg PO Q8H PRN #90 cap 06/27/19 07/18/19 Rx ibuprofen 600 mg tablet 600 mg PO TID PRN #60 tab 06/27/19 07/18/19 Rx oxycodone 10 mg PO .Q6-8HR PRN MDD 20mg 07/18/19 07/18/19 History pregabalin 50 mg capsule 50 - 100 mg PO TID 07/18/19 07/18/19 History Allergies Allergy/AdvReac Type Severity Reaction Status Date / Time codeine AdvReac Mild Verified 07/18/19 09:12 enalapril AdvReac Mild Verified 06/27/19 08:22 latex AdvReac Mild rash Verified 07/18/19 08:31 lisinopril AdvReac Mild Verified 06/27/19 08:22 pravastatin AdvReac Mild Verified 06/27/19 08:22 Exam Const General: cooperative and no acute distress [facility] Head: normal to inspection, normocephalic and atraumatic Ears: external ears normal General nose exam: external nose normal and no nasal discharge Face and sinus: face symmetric Mouth: oral mucosae normal, lip normal, tongue normal and moist mucous membranes Teeth and gingiva: other (Full upper dentures) Throat: posterior oropharynx normal Eyes General: appearance normal, both eyes and all related structures Pupils: PERRL EOM: EOM intact bilaterally Neck Neck: trachea midline Carotids: normal carotid upstroke Lymphatic: no lymphadenopathy noted Resp Effort & Inspection: normal respiratory effort and able to speak in complete sentences Auscultation: clear to auscultation bilaterally, no rales, no rhonchi and no wheezes Cardio Heart Sounds: S1 normal, S2 normal and no murmurs Pulses: radial pulses present bilaterally GI Palpation: soft, no hepatosplenomegaly and nontender Auscultation: normal bowel sounds Skin Other: Small circular well-healed lesions are noted along patient's palm. No vesicles, crusting, purulent discharge or erythema is noted surrounding lesions. Extrem Other: On physical exam patient's right leg is a few millimeters short compared to his contralateral side. Results Labs Result diagrams: 07/18/19 10:16 07/18/19 10:16
[2019-07-18 10:32] LABS: HCT 42.3 % (40.0-50.0); HGB 14.5 g/dL (13.5-17.5); Mean Corp. HGB Concentration 34.3 g/dL (32.0-36.0); Mean Corpuscular Volume 96.4 fL (80-95); Mean Platelet Volume 9.9 fL (8.0-11.0); Platelet Count 183 x1000/uL (130-400); RBC 4.39 m/cumm (4.50-6.00); RBC Distribution Width 12.8 % (11.8-14.1); White Blood Cell Count 5.37 k/cumm (4.4-10.8)
[2019-07-18 11:13] LABS: Anion Gap 8.8 mmol/L (3-11); BUN 15 mg/dL (7-18); CO2 34.2 mmol/L (21.0-32.0); CREATININE 0.95 mg/dL (0.70-1.30); Calcium 9.9 mg/dL (8.5-10.1); Chloride 100 mmol/L (98-107); Glucose 94 mg/dL (70-100); Potassium 3.8 mmol/L (3.5-5.1); Sodium 143 mmol/L (136-145)
== END 2019-07-18 09:17 ==
PROVIDERS: PCP Internal Medicine; Visit Provider Student in an Organized Health Care Education/Training Program
DX: M25.551 Pain in right hip (principal); M16.11 Unilateral primary osteoarthritis, right hip; Z01.812 Encounter for preprocedural laboratory examination; Z01.818 Encounter for other preprocedural examination; I10 Essential (primary) hypertension
CPT/HCPCS: 36415; 80048; 85027; 86850; 86900; 86901; NC

== ENCOUNTER 2019-07-22 11:28 | Inpatient (IN) | payer MEDICARE, OTHER, SELFPAY ==
[2019-07-22] VITALS (10 sets, daily range): BP systolic 104–131; BP diastolic 60–86; PULSE 53–79; RESP 14–21; TEMP 35.1–36.7; O2SAT 92–98
[2019-07-22] MEDS: Lactated Ringers 1,000 ML 80 ML IV (12:05)
[2019-07-22] MEDS: Acetaminophen 500 MG TAB 1000 MG PO ×3 (12:06→20:30)
[2019-07-22] MEDS: Celecoxib 200 MG CAP 400 MG PO (12:06)
[2019-07-22] MEDS: ceFAZolin 2 GM/50 ML BAG IVPB (14:25)
[2019-07-22] MEDS: Bupivacaine 0.25% Pres-Free 30 ML VIAL (15:49)
[2019-07-22] MEDS: Normal Saline 20 ML VIAL (15:49)
[2019-07-22] MEDS: Ketorolac 30 MG/ML VIAL (15:49)
--- NOTE | 2019-07-22 16:00 | DI.RAD_ITS ---
EXAM: XR HIP RT IN OR CLINICAL HISTORY: OSTEOARTHRITIS RIGHT HIP. TECHNIQUE: 2D and realtime digital imaging was performed. FINDINGS: AP intraoperative images of the right hip are provided. There is evidence of DJD. There is nothing to suggest a fracture or dislocation. FLUORO TIME: 28.3 seconds
[2019-07-22] MEDS: Pregabalin 50 MG CAP PO ×2 (17:43→20:30)
[2019-07-22] MEDS: oxyCODONE 5 MG TAB PO (21:50)
[2019-07-23] MEDS: HYDROmorphone 2 MG/ML VIAL 0.5 MG IVP (03:35)
[2019-07-23] MEDS: Lactated Ringers 1,000 ML 80 ML IV (03:36)
[2019-07-23 06:10] VITALS: BP 124/77; PULSE 76; RESP 18; TEMP 37.1; O2SAT 93
[2019-07-23] MEDS: oxyCODONE 5 MG TAB PO ×3 (06:33→19:26)
[2019-07-23 07:35] VITALS: BP 158/72; PULSE 62; RESP 16; TEMP 37.3; O2SAT 96
--- NOTE | 2019-07-23 07:39 | DI.RAD_ITS ---
EXAM: XR PELVIS AP INDICATION: s/p R WENDY with pain. COMPARISON: XR HIP RT COMPLETE AP PELVIS from 02/24/2019 TECHNIQUE: 2D digital imaging was performed. FINDINGS: AP film of the lower pelvis, hips and proximal femora is provided. The prostheses are well positione d and appear intact. There is no evidence of superimposed fracture or dislocation.
[2019-07-23] MEDS: Pregabalin 50 MG CAP PO ×3 (08:04→20:14)
[2019-07-23] MEDS: Pantoprazole 40 MG TABCR PO (08:04)
[2019-07-23] MEDS: hydroCHLOROthiazide 25 MG TAB PO (08:04)
[2019-07-23] MEDS: Acetaminophen 500 MG TAB 1000 MG PO ×3 (08:04→20:14)
[2019-07-23] MEDS: Dexamethasone 4 MG TAB PO (08:04)
[2019-07-23] MEDS: Aspirin 325 MG TAB PO (08:04)
[2019-07-23] MEDS: Cyclobenzaprine 10 MG TAB PO ×2 (08:05→18:29)
[2019-07-23] MEDS: Polyethylene Glycol 3350 17 GM PACKET PO ×2 (09:27→18:35)
[2019-07-23] MEDS: Docusate Sodium 100 MG CAP PO ×2 (09:27→18:35)
--- NOTE | 2019-07-23 10:30 | PT.INIE ---
Date of service: 07/23/19 Time of Service: 10:19 PT Notes Inpatient Physical Therapy Evaluation Date: 07/23/2019 Referring Doctor: Cal Cortés MD PT Orders: PT CONSULT: S/P R WENDY Precautions: Fall. Standard. WBAT on R LE. Patient Profile/Admitting Diagnosis: Patient is a 78-year-old male s/p R WENDY on POD 1 due to primary unilateral osteoarthritis. PMHX: Medical History Cough Dysphonia HTN (hypertension) Hx of transient ischemic attack (TIA) Hyperlipidemia Kidney stone Latex allergy Lower back pain Osteoarthritis Pharyngitis Radicular pain Rotator cuff (capsule) sprain Shingles (Acute) rt hand (healing pustules) and rt arm pain up to rt shoulder and rt side of his back per patient. SOB (shortness of breath) Surgical History (Updated 07/18/19 @ 18:05 by Melania Nicole) Colonoscopy - IV Sedation DISCECTOMY Endoscopic Carpal Tunnel release B/L History of arthroscopy of left knee (Chronic) History of cataract surgery (Chronic) Lithotripsy Total replacement of hip LEFT Social History/Home Situation: Patient lives in a one story home with his . He reports there is one step to enter the home, and one step to enter the bedroom. Patient was independent with all aspects of mobility ADL without the need for an assistive device nor an adaptive equipment. Equipment Owned/DME: His uses a walker which he has borrowed, but says she needs it back. He will require his own FWW when he returns home. Subjective: Patient reports severe pain with movement on the anterolateral right thigh. He says he has felt cold since being admitted to the med/surg department. He denies headache, dizziness, and lightheadedness, and agrees to PT evaluation. Objective: General Observation: Patient is seen ambulating from bathroom to EOB. He has an IV in R UE and bilateral CECY stockings. Mental Status: Alert and oriented x 4 Pain: 9/10 during ambulation ROM: Right Lower Extremity: Hip flexion < 50%, unable to lift thigh beyond 90 degrees while seated at EOB. Hip abduction WFL. Knee flexion WFL. Knee extension <80%. Ankle dorsiflexion 0 degrees. Ankle plantarflexion WFL. Left Lower Extremity: Hip flexion WFL. Hip abduction WFL. Knee flexion WFL. Ankle dorsiflexion WFL. Ankle plantarflexion WFL. Strength: Right Lower Extremity: Hip flexors 3-/5. Hip abductors 5/5. Knee extensors 3-/5. Ankle dorsiflexors 3-/5. Ankle plantarflexors 5/5. Left Lower Extremity:Hip flexors 5/5. Hip abductors 5/5. Knee extensors 5/5. Ankle dorsiflexors 5/5. Ankle plantarflexors 5/5. Sensation: Intact as to pain and pressure on bilateral lower extremities. Bed Mobility/Transfers: Rolling I Supine to sit I Sit to supine I Sit to stand I Stand to sit I Bed to chair Supervision Chair to bed Supervision Gait: Patient ambulated 75? x 2 with FWW and supervision with wheelchair follow. He ascended and descended three 4-inch steps, and two 6-inch steps. He then ambulated 75? back to his room with FWW and supervision. He exhibited a reciprocal gait pattern with decreased step height and length, decreased bubba and overall gait speed. Balance: Static Sitting: Normal Dynamic Sitting: Normal Static Standing: Good Dynamic Standing: Fair Special Tests: Mobility Limitations Standardized Measure [facility] 6 clicks Basic Mobility Inpatient Short Form: Raw Score: 22 CMS Score: 26% Informed Consent/Education: Patient instructed in purpose of PT consult and plan of care. Assessment: Patient is a 78-year-old male s/p R WENDY POD 1 due to primary osteoarthritis. He reports that his has limited ability due to rheumatoid arthritis, but they ?compliment? each other?s abilities. He ambulates well considering the short time that has passed since surgery, but does report pain during ambulatory activities. He is a motivated individual and his comorbidities are not predicted to significantly impact his recovery. His prognosis is good. Patient presents with clinical signs and symptoms consistent with current/admitting diagnoses that have resulted to mobility limitations, gait instability, generalized weakness, and impairment of motor control as demonstrated by the following impairment level findings: 1. Decreased strength to R LE major muscle groups 2. Impaired sitting/standing balance 3. Impaired activity tolerance 4. Limitation of joint range of motion in R hip and knee Impairments are contributing to the following functional limitations: 1. Dependent bed mobility skills 2. Increased dependence with transfers 3. Inability to safely ambulate without assistive device and physical assistance 4. Increase completion time for mobility ADL performance 5. Increased fall risk 6. Inability to negotiate steps alone safely Patient is assessed as a 38259 moderate complexity based on the following: History: Patient is a 78-year-old male s/p R WENDY on POD 0 due to primary unilateral osteoarthritis. Examination: Demonstrable impairment in strength, balance, and range of motion with underlying impairments and functional limitations as documented above Presentation: Evolving Decision Makin Moderate complexity Goals: Goals X1 week 1. Independent gait on level surface with use of least restrictive device for at least 300 feet without report of pain nor dyspnea 2. Independent stair negotiation while holding onto bilateral rails for at least 5 steps without report of pain nor dyspnea. 3. Independent with home exercise program 4. Good static and dynamic standing balance/tolerance Plan of Care/Treatment Plan: 1-2x/day, 7 days/week x 1 week. Plan of care has been reviewed with the TELEPHONE QUOTATION CLERK providing the service under Physical Therapy direction. Initiate Physical Therapy intervention for strengthening, bed mobility, transfers, gait, stairs, balance training, use of assistive device. DISCHARGE RECOMMENDATIONS: Patient is to be discharged to home after all of the above goals are met and he is medically stable. Patient will require a front-wheeled walker at home to reduce fall risk and maximize mobility independence. TREATMENT CODE/TIME: 00749 x 10 minutes, 33502 x 11 minutes beginning at 10:19 AM. Thank you very much for this referral. Jona Haile, [facility] With a supervision of: Janell Holcomb PT, DPT, CLT [facility]
[2019-07-23] MEDS: Normal Saline Flush 10 ML SYR IV ×2 (11:21→20:15)
[2019-07-23 11:40] VITALS: BP 119/70; PULSE 74; RESP 18; TEMP 37.7; O2SAT 95
--- NOTE | 2019-07-23 14:46 | PT.INTREAT ---
Date of service: 07/23/19 Time of Service: 14:46 PT Notes Inpatient Physical Therapy Treatment Note [facility] Date: 07/23/19 PRECAUTIONS: Fall, WBAT R SUBJECTIVE: Jayme is agreeable to participating in PT, he states that he is feeling sore and he that his leg is heavy. OBJECTIVE: PAIN: Patient c/o R hip pain with transfers, gait training, and ther ex BED MOBILITY/TRANSFERS Supine-sit: SBA Sit-supine: Min A Sit-stand: S Stand-sit: S GAIT Assistive Device: FWW Weight bearing: WBAT R Assist: S Distance: 250' THEREX: Patient completed a LE strengthening and stabilization program, in a supine position, as per flow sheet. Patient requires assist for hip abduction due to weakness. TOILETING: Patient toileted with supervision for transfers ASSESSMENT: Patient tolerated session with c/o increased R hip pain with ther ex, transfers, and gait training. He was able to tolerate a progression in gait distance with FWW support and supervision. He continues to require assist for bed mobility at this time. He would benefit from continued gait and transfer training, as well as strengthening for improved mobility. PLAN: Continue with PT's POC TREATMENT CODE/TIME: 30 minutes; 63923, [id number]
--- NOTE | 2019-07-23 15:56 | PDOC.CMIN ---
- If Service Date Differs Date of service: 07/23/19 Time of Service: 15:56 Care Management Initial Assess REASON FOR HOSPITALIZATION:: Total Right Hip PAST MEDICAL HISTORY/PAST SURGICAL HISTORY:: Medical History. Cough. Dysphonia. HTN (hypertension). Hx of transient ischemic attack (TIA). Hyperlipidemia. Kidney stone. Latex allergy. Lower back pain. Osteoarthritis. Pharyngitis. Radicular pain. Rotator cuff (capsule) sprain. Shingles (Acute). rt hand (healing pustules) and rt arm pain up to rt shoulder and rt side of his back per patient. SOB (shortness of breath). Surgical History. Colonoscopy - IV Sedation. DISCECTOMY. Endoscopic Carpal Tunnel release. B/L. History of arthroscopy of left knee (Chronic). History of cataract surgery (Chronic). Lithotripsy. Total replacement of hip. LEFT PREVIOUS FUNCTIONAL STATUS/SOCIAL/FAMILY SUPPORTS:: Jayme (who goes by Mike), lives with his , Tayla in [place] in a single level home. His daughter in law's cousin, Kashif, lives with them and helps with chores around the property. Mike and his own [place] [facility] [facility] in [place]. He is independent with his ADL's. CURRENT FUNCTIONAL STATUS:: Mike was sitting in his chair eating lunch when CM met with him. He was pleasant and engaged in conversation. He reported that he has had two other joint replacements that both went very well, but he has more pain with this one. His pain is under control now, but stated that he is a little nervous to go home today. He stated that he has a FWW but his uses it daily, so he would like one to take home with him. CM will follow. ADVANCE DIRECTIVES:: None on file. Has patient been provided with information about the portal?: Yes Did the patient sign up for the portal?: No CODE STATUS:: Full Code INSURANCE COVERAGE / FINANCIAL ISSUES:: [facility] CURRENT HOME/COMMUNITY SERVICES/EQUIPMENT:: No services at this time. He would like a FWW to take home, which CM will coordinate. PRIMARY CARE PHYSICIAN:: Alcides Estrada POTENTIAL DISCHARGE NEEDS:: Evaluations for further needs, follow up appointments as recommended PATIENT/FAMILY EDUCATION NEEDS:: Review of community based supports, discharge plan, discussion of self care needs upon discharge including Ask Me Three ANTICIPATED BARRIERS TO DISCHARGE:: None identified at this time. TRANSPORTATION:: Kashif, Mike's daughter in law's cousin, will drive him home via private vehicle. PLAN:: Anticipate Mike will return home when medically ready. CM will coordinate a FWW for his discharge. Kashif will drive him home via private vehicle. He will have follow up appointments with ortho. CM will continue to follow.
[2019-07-23 16:23] VITALS: BP 119/77; PULSE 83; RESP 18; TEMP 36.9; O2SAT 93
--- NOTE | 2019-07-23 18:31 | W.PM.PROGNOT ---
Date of Service Date of service: 07/23/19 Time of Service: 13:31 Assessment and Plan Assessment and plan (1) Primary osteoarthritis of right hip: Status: Chronic Assessment and plan: Erik 78-year-old status post right hip replacement. He is having more pain than I would expect. This does seem to be muscular in nature. It is possible that there could be more muscle damage than usual but it would rarely require any other interventions. Therefore, I think just giving this time will be the best treatment. I will add on a muscle relaxer to see if this helps out. I encouraged him to walk as much as possible is usually walking feels better and will make the muscles feel better too. I did lengthen his right leg about 5 mm to even him out to the other side. This should be enough length to really cause any significant issues but we will continue to follow. Once his pain is better controlled he is able to mobilize out of the bed independently, he may discharge home. Continue aspirin for DVT prophylaxis. Subjective Subjective Interval history since last seen: Mike is status post right anterior total hip arthroplasty. Unfortunate, he has had more pain than I would expect. The majority this pain is localized around the hip. The deep-seated pain he had before surgery is now gone. The pain is worse with laying in the bed and trying to maneuver himself in the bed. He has been able to ambulate physical therapy. He describes as a crampy and grabbing type pain with any sudden motions in the bed. He denies numbness or tingling. Exam Narrative Exam Narrative: Right hip shows some mild swelling. He tolerates internal and external rotation without pain. There is pain to palpation throughout the ATFL muscle belly and the greater trochanter and posterior soft tissues. He is able to flex and extend the hip. Sensation intact light touch of the lateral femoral cutaneous nerve and femoral nerve distributions. Foot is warm and well-perfused with a palpable DP PT pulse. Objective Objective Clinical Data: Vital Signs Temperature 37.1 C 07/24/19 04:05 Temperature Source Tympanic 07/24/19 04:05 Pulse 60 07/24/19 04:05 Pulse Rhythm Regular 07/24/19 00:35 Respiratory Rate 17 07/24/19 04:05 Respiratory Effort Non-Labored 07/24/19 00:35 Respiratory Depth Normal 07/24/19 00:35 Respiratory Pattern Normal 07/24/19 00:35 Blood Pressure 123/72 07/24/19 04:05 Pulse Oximetry 95 07/24/19 04:05 Respiratory End-tidal CO2 33 07/22/19 16:54 Oxygen Delivery Method Room Air 07/24/19 04:05 Oxygen Flow Rate 0 07/24/19 04:05 Pain Level 3 07/24/19 04:36 Comment 07/23/19 11:40 Intake & Output 07/23/19 07/23/19 07/24/19 11:59 23:59 11:59 Intake Total 1066 / 1766 700 / 1766 100 / 100 Output Total 1050 / 3425 2375 / 3425 1000 / 1000 Balance 16 / -1659 -1675 / -1659 -900 / -900 Intake: IV 466 / 686 220 / 686 100 / 100 Oral 600 / 1080 480 / 1080 Output: Urine 1050 / 3425 2375 / 3425 1000 / 1000 Other: Urine Color Yellow Yellow Straw Urine Appearance Clear Clear Clear Urine Odor Normal Voiding Methods Toilet Toilet Objective Narrative Objective Narrative: X-ray of the pelvis shows well-placed prosthesis on the right side. Leg lengths appear to be equal. No acute complications appreciated.
[2019-07-23 20:14] VITALS: BP 110/67; PULSE 84; RESP 18; TEMP 37.2; O2SAT 93
--- NOTE | 2019-07-23 21:55 | ROE_ITS ---
Date of service: 07/22/19 Time of Service: 17:55 Operative Note Operative Note DATE OF PROCEDURE: 07/22/19 PRE-OP DIAGNOSIS: Right Hip Osteoarthritis POST-OP DIAGNOSIS: same PROCEDURE: Right Anterior Total Hip Arthroplasty SURGEON: Cal Cortés RECORDS COORDINATOR: Melania Nicole ANESTHESIA: spinal ESTIMATED BLOOD LOSS: 600 PATHOLOGY: none sent COMPLICATIONS: None Patient was transported to: PACU Patient's condition: stable Implants: 1. Depuy [place] Acetabular Component, 56mm 2. Depuy Acetabular Liner, [id number] 3. Depuy Corail Standard Collared Femoral Stem, Size 14 4. Depuy Altrx Ceramic Femoral Head, Size 36+5mm Indications: I have seen Mike in clinic for symptoms of hip arthritis, confirmed with radiographic findings. Mike has exhausted nonoperative methods and was having significant limitations in daily function and desired better function and less pain. I discussed the technical details of a hip replacement. I explained the risks of the procedure to include, but not limited to, bleeding, infection, pain, stiffness, fracture, damage to nerves and vessels, damage to muscles and tendons, loosening, instability, leg length inequality, need for repeat procedure, blood clot and cardiopulmonary demise. Despite these risks, Mike elected to proceed. Findings: There was significant signs of arthritis throughout the hip. There was a large lateral neck ostoephyte with possible collapse of the superior femoral head. Surrounding hip capsule was notably thickened. Procedure Description: Mike was greeted in the preoperative holding area where the correct side was identified and marked. The consent was reviewed with the patient and signed. The history and physical was updated. All questions were answered. Mike was taken back to the operating room. A spinal anesthestic was then administered. The patient was placed into the supine position on the operating room table. The patient was then positioned onto the ARCH table. Both feet were wrapped with Webrill cotton wrap along with Coban. The feet were placed in specialized boots for the ARCH table, well seated within the boot and secured. SCDs were applied. The patient was then slid down onto a peroneal post and the nonoperative leg was secured in a leg blackwell attached to the table. The operative side was placed into the ARCH table attachment and bed height and positioning was secured. A preoperative AP pelvis was obtained to serve as a reference for determining leg lengths. Prophylactic antibiotics in the form of Cefazolin were administered. 1g of Tranxemic Acid was given intravenously within 30 minutes of incision. The right leg was then prepped with Chloraprep and draped in a standard fashion. A second prep with Chloraprep was performed prior to placement of a shower-curtain type drape with Iodine impregnated skin protection. A timeout to confirm correct identity, side and site, procedure, allergies, anesthesia, and medical concerns was performed. An obliquely oriented incision was made starting lateral to the ASIS and running distal over the Tensor Fascia Keyana (TFL) muscle belly toward the fibular head, approximately 10cm. The skin and soft tissue was dissected sharply, through Kris?s fascia, and to the fascia of the TFL. With the fascia and superior border of the IT band identified, the fascia was incised with a new knife just above any perforators from the IT band. The TFL muscle belly was bluntly dissected away from the fascia and moved laterally. The fat between TFL and rectus was identified to ensure the dissection was not within the TFL. Blunt dissection created space between abductors and the capsule and retractor was placed over the lateral femoral neck. The fibers of the rectus femoris tendon were identified and these were freed from the anterior capsule. A second cobra retractor was placed around the medial femoral neck. The TFL was further retracted laterally to show the deep fascia. Careful dissection through this layer identified three main crossing vessels of the lateral femoral circumflex. These were cauterized in multiple locations and then cut without any noticeable bleeding. The TFL was further released bluntly from the deep fascia to expose anterior hip capsule and fat The Kumar orthopaedic retractor was then placed beneath the TFL and against sartorius and medial soft tissues to protect and retract the soft tissues. A T-capsulotomy was then performed starting at the superior lateral acetabulum and moving distally to the intertrochanteric ridge. These capsular flaps were tagged with a No. 1 Ethibond and elevated from within. The capsular flaps were released to the shoulder of the lateral neck and to the lesser trochanter to give excellent visualization of the proximal femur. A neck osteotomy was performed using an oscillating saw based on preoperative templates. This cut started in the shoulder and of the lateral neck and exited medially. The saw was at all times directed medially to avoid injury to the greater trochanter. 6cm of traction was applied to the leg and the osteotomy opened. The femoral head was removed with a corkscrew, making sure to protect the TFL on its exit. This was measured on the back table to determing the starting reamer size. Portions of the rectus obscuring visualization were minimally elevated off the superior acetabulum. An anterior retractor was placed over the anterior wall between capsule and labrum and attached to the Gripper retraction system. A posterior retractor was placed similarly. This provided excellent visualization. The contents of the cotyloid fossa were removed with electrocautery and the labrum was removed with a knife. There was significant chondromalacia of the superior acetabulum. Acetabular reaming began with a 52mm reamer. This first reaming was directed anterior to posterior and medial to get down to the true floor. This was inspected and reamed until the true floor was reached. I then reamed sequentially up to a 56mm reamer where good fit was obtained. The larger reamers were oriented based on anatomical reference of the anterior and lateral dao to ensure proper abduction and anteversion. Positioning and size was confirmed with the fluoroscopy. A 56mm Depuy [place] acetabular component was selected. The acetabulum was reamed around the periphery with the selected acetabular size to prevent a rim fit. The deep tissues were irrigated. The acetabular component was then impacted in a position of about 40-45 degrees of abduction and 15-20 degrees of anteversion, using the patient?s anatomy as the ultimate landmark. Fluoroscopy was used to confirm this. There was excellent customs patrol officer of the acetabular component and the inserting handle was removed. The acetabular liner, Depuy [id number] polyethylene liner, was inserted and lined up with the tines of the acetabular component. There was no soft tissue interposition. The liner was then impacted into position and confirmed to be well-seated. A portion of the paula-articular cocktail was then injected around the acetabulum into the capsule and periosteum. This cocktail consisted of 50cc of 0.25% Bupivicaine and 20cc of Exparel, expanded to a total of 120cc. Traction was released from the femur. The leg was rotated to 120 degrees. Any remaining medial capsule was released until the lesser trochanter was easily palpable. A Lawrence retractor was placed medially. The lateral capsule was further released into the shoulder to allow access to the greater trochanter. A Lawrence retractor was placed over the greater trochanter which allowed the trochanter to flip in front of the capsule for excellent exposure. The leg was brought down into maximal extension and 20 degrees of adduction while ensuring there was no impingement on the acetabulum. Any remnant capsule within the trochanter was released. Piriformis and obturator externis were identified and protected. There was excellent access to the proximal femur. The lateral neck remnant was removed with a rongeur. A blunt canal probe was used to identify the canal and trajectory for later broaching. A box osteotome initiated the broach course. A small curved rasp and a curved curette were used to work laterally. Broaching then began with a size 8 Corail broach. This was inserted manually around the trochanter and into the canal before mallet blows. The broach was seated to the neck cut levela few millimeters below the cut level based on the neck cut and the preoperative template. Sequential broaching was continued until a tight fit was obtained with good rotational control of the femur. A trial standard neck was inserted along with a +5 trial head. The leg was brought out of extension and adduction and then reduced with traction and internal rotation. The leg was stable anteriorly in a position of 30 degrees of extension and 90 degrees of external rotation. Fluoroscopy was used to ensure there was no fracture and the stem was seated well. Leg lengths were checked with an AP pelvis and pelvic reference points. Once content with the desired offset and leg lengths, the leg was brought back into extension, external rotation and adduction. The periosteum and surrounding tissue was injected with remaining portion of the paula-articular cocktail. The proximal femur was irrigated as well as the deep tissues. The Depuy Corail standard collared stem, size 14, was then manually inserted into the proximal femur making sure to control rotation. It was then malleted into position with light blows, giving breaks to allow bone expansion and decrease risk of fracture. The selected Depuy Altrx Ceramic Head, size 36+5mm, was then placed onto the clean and dry trunnion and secured with impaction onto the tapered fit. The leg was brought back out of extension and adduction and reduced with traction and internal rotation. Stability was confirmed with no shuck at 90 degrees of external rotation and 30 degrees of extension. No impingement through range of motion arc. Final x-ray images were obtained with fluoroscopy to confirm adequate positioning and no intraoperative fracture. The deep tissues were thoroughly irrigated with a pulse lavage. The second dose of TXA 1g was administered intravenously.The capsule was then reapproximated with the previously placed Ethibond sutures. The TFL fascia was finally closed with a No. 2 Stratafix, barbed suture. Deep tissues were then reapproximated with 0 Vicryl and a running 2-0 Vicryl. The skin was closed with a running 4-0 Monocryl in a Mike fashion. This was reinforced with skin glue. A Mepilex silver dressing was applied. At the end of the case, all counts were correct. NAME was transferred to the hospital bed without difficulty and suffering no apparent complication. Joehas a good prognosis. Physical therapy will start today and without restrictions, weight-bearing as tolerated. Aspirin 81mg BID will be used for DVT prophylaxis.
[2019-07-24 00:21] VITALS: BP 107/64; PULSE 83; RESP 16; TEMP 36.8; O2SAT 92
[2019-07-24 04:05] VITALS: BP 123/72; PULSE 60; RESP 17; TEMP 37.1; O2SAT 95
[2019-07-24] MEDS: Normal Saline Flush 10 ML SYR IV (04:31)
[2019-07-24] MEDS: Ibuprofen 600 MG TAB PO (04:36)
--- NOTE | 2019-07-24 07:32 | W.PM.DS.N ---
Date of service: 07/24/19 Time of Service: 07:32 DS: Diagnosis Discharge Diagnosis (1) Primary osteoarthritis of right hip: Status: Chronic Discharge Plan Disposition Patient Disposition: HOME Condition: Good Discharge Details Reason For Visit: HIP TOTAL (R) Admit Date/Time: 07/22/19 11:28 Admit Provider: Cal Cortés Attending Provider: Cal Cortés Primary Care Provider: Alcides Estrada Hospital Course Hospital Course: Patient was admitted to the medical/surgical floor following the procedure. It was tolerated well without any notable medical, surgical, or anesthetic complications. Mobilization began postoperatively. The staples catheter was removed and voiding spontaneously. Vitals were stable. Physical therapy worked with the patient and was cleared for discharge home. No acute medical issues. His primary complaint was pain around the hip, posteriorly, but was controlled with medications. Home Meds and New Rx's Prescriptions: New polyethylene glycol 3350 17 gram Powder In Packet 17 g PO BID PRN PRN (Reason: Constipation) Qty: 0 RF: 0 docusate sodium [Colace] 100 mg Capsule 100 mg PO BID PRN PRN (Reason: Constipation) Qty: 0 RF: 0 pregabalin [Lyrica] 50 mg Capsule 50 mg PO TID Qty: 90 RF: 0 aspirin 81 mg tablet,delayed release (DR/EC) 81 mg PO BID Qty: 60 RF: 0 acetaminophen 500 mg tablet 1,000 mg PO Q8H PRN (Reason: pain) Qty: 90 RF: 3 oxycodone 5 mg tablet 5 mg PO Q4H Qty: 12 RF: 0 Continued ibuprofen 600 mg tablet 600 mg PO TID PRN (Reason: pain) Qty: 90 RF: 3 Changed pregabalin [Lyrica] 50 mg capsule 50 mg PO TID Qty: 90 RF: 0 Discontinued Atorvastatin Calcium 10 MG tablet 10 mg PO DAILY RF: 0 No Action acetaminophen 500 mg capsule 1,000 mg PO Q8H PRN (Reason: pain) Qty: 90 RF: 2 aspirin 325 MG tablet 325 mg PO DAILY RF: 0 hydrochlorothiazide 12.5 MG capsule 25 mg PO DAILY RF: 0 methocarbamol 750 mg Tablet 750 mg PO Q6H PRN PRNRF: 0 lidocaine [Lidoderm] 5 % adhesive patch,medicated 1 patch TP DAILY Qty: 15 RF: 0 sennosides-docusate sodium [Senna Laxative-Stool Softener] 8.6-50 mg Tablet 2 tab PO QHS PRNRF: 0 oxycodone 5 mg tablet 10 mg PO .Q6-8HR MDD 20mg PRN (Reason: pain) RF: 0 Discharge Instructions Additional Instructions: Dr. Cortés?s Total Hip Discharge Instructions Activity: The most important activity is to walk. You should try to take short walks a few times a day. You have no restrictions on movement or positioning, but do not try to force what you do. You will find some stiffness and weakness with hip flexion (lifting your knee). Do not try to strengthen this too early, continue to practice walking and stairs and this will come. - Outpatient physical therapy can be helpful to help return you to a normal gait and improve your flexibility and strength. This can start around 2 weeks. For some patients, it?s not necessary. Usually this is determined at the time of discharge or at the first post-operative visit. - You should wear the CECY hose on both legs for 2 weeks. Dressing: Keep the surgical dressing in place for at least one week. After the first week it may be removed and replace with light gauze and tape or nothing. It may get wet after 3 days but avoid soaking the dressing. If it gets wet, just lightly pat dry. It is important to always keep some gauze between skin folds, especially when you are sitting. Spend some time with the wound exposed when you are lying flat as the incision does wrinkle onto itself. Medications: - You should take Tylenol and an anti-inflammatory Ibuprofen as your primary pain control medications - You have been prescribed a stronger pain medication Oxycodone for breakthrough pain, take as needed as prescribed. - You have also been prescribed a stomach acid reduction agent Pantoprozole to help reduce stomach acid and reflux. - You will be taking Aspirin 81mg twice a day for DVT prevention unless instructed otherwise. - You will continue to take Lyrica for nerve pain from - If you have constipation you should take Colace or Miralax (both [id number]). It takes most people 3-4 days to have a bowel movement. Follow-up: 2 weeks Referrals: Cal Cortés MD [ [facility] STAFF PHYSICIAN] - Activity:: Activity as Tolerated Equipment/Supplies:: Walker Diet:: As Tolerated Discharge Orders Discharge Orders: Discharge Order (Routine); Ordered 07/24/19 Ordered By: Cal Cortés DS: Summary Status at Discharge Functional status at discharge: uses cane/walker Overall status at discharge: patient is progressing back to baseline Mental Status: mental status grossly normal Speech and Movement: speech and movement normal Mood: congruent mood Affect: normal affect Exam Psych Mental Status: mental status grossly normal Speech and Movement: speech and movement normal Mood: congruent mood Affect: normal affect DS: Data Vitals/I&O Vitals and I&O: Vital Signs Temperature 37.1 C 07/24/19 04:05 Temperature Source Tympanic 07/24/19 04:05 Pulse 60 07/24/19 04:05 Pulse Rhythm Regular 07/24/19 00:35 Respiratory Rate 17 07/24/19 04:05 Respiratory Effort Non-Labored 07/24/19 00:35 Respiratory Depth Normal 07/24/19 00:35 Respiratory Pattern Normal 07/24/19 00:35 Blood Pressure 123/72 07/24/19 04:05 Pulse Oximetry 95 07/24/19 04:05 Respiratory End-tidal CO2 33 07/22/19 16:54 Oxygen Delivery Method Room Air 07/24/19 04:05 Oxygen Flow Rate 0 07/24/19 04:05 Pain Level 3 07/24/19 04:36 Comment 07/23/19 11:40 Intake & Output 07/23/19 07/23/19 07/24/19 11:59 23:59 11:59 Intake Total 1066 / 1766 700 / 1766 100 / 100 Output Total 1050 / 3425 2375 / 3425 1000 / 1000 Balance 16 / -1659 -1675 / -1659 -900 / -900 Intake: IV 466 / 686 220 / 686 100 / 100 Oral 600 / 1080 480 / 1080 Output: Urine 1050 / 3425 2375 / 3425 1000 / 1000 Other: Urine Color Yellow Yellow Straw Urine Appearance Clear Clear Clear Urine Odor Normal Voiding Methods Toilet Toilet [facility] Medical History Cough Dysphonia HTN (hypertension) Hx of transient ischemic attack (TIA) Hyperlipidemia Kidney stone Latex allergy Lower back pain Osteoarthritis Pharyngitis Radicular pain Rotator cuff (capsule) sprain Shingles (Acute) rt hand (healing pustules) and rt arm pain up to rt shoulder and rt side of his back per patient. SOB (shortness of breath) Surgical History Colonoscopy - IV Sedation DISCECTOMY Endoscopic Carpal Tunnel release B/L History of arthroscopy of left knee (Chronic) History of cataract surgery (Chronic) Lithotripsy Total replacement of hip LEFT Family History Father Cirrhosis Social History Smoking/Tobacco Use Status: Never Alcohol Intake: never Drug use: Never Substance use type: does not use Do you feel safe in your relationship?: Yes
[2019-07-24] MEDS: hydroCHLOROthiazide 25 MG TAB PO (07:59)
[2019-07-24] MEDS: Aspirin 325 MG TAB PO (07:59)
[2019-07-24] MEDS: Pregabalin 50 MG CAP PO (08:00)
[2019-07-24] MEDS: Cyclobenzaprine 10 MG TAB PO (08:01)
[2019-07-24] MEDS: Dexamethasone 4 MG TAB PO (08:01)
[2019-07-24] MEDS: Pantoprazole 40 MG TABCR PO (08:02)
[2019-07-24] MEDS: oxyCODONE 5 MG TAB PO ×2 (08:02→10:37)
[2019-07-24] MEDS: Docusate Sodium 100 MG CAP PO (08:02)
[2019-07-24 08:16] VITALS: BP 109/67; PULSE 64; RESP 18; TEMP 37.5; O2SAT 92
--- NOTE | 2019-07-24 09:56 | PT.INTREAT ---
Date of service: 07/24/19 Time of Service: 09:57 PT Notes Inpatient Physical Therapy Treatment Note [facility] Date: 07/24/19 PRECAUTIONS: Fall, WBAT R SUBJECTIVE: Jayme states that he is ready to return to home today. He states that he is feeling better this morning and is able to move his R LE better today versus yesterday. OBJECTIVE: PAIN: Patient c/o R hip pain with hip abduction exercise BED MOBILITY/TRANSFERS Supine-sit: I with HOB flat Sit-supine: I with HOB flat Sit-stand: I Stand-sit: I GAIT Assistive Device: FWW Weight bearing: WBAT R Assist: S Distance: 200' THEREX: Patient completed a LE strengthening and stabilization program, in a supine position, as per flow sheet. Patient requires assist with hip abduction. He ends with cryo to R hip. STAIRS:Up/down 3x4 and 2x6 using B rails and a step-over pattern with supervision ASSESSMENT: Patient tolerated session well with minimal complaint of R hip pain with hip abduction exercise. He was able to demonstrate independence with bed mobility at this time. PLAN: As per primary PT TREATMENT CODE/TIME: 30 minutes; 37422, [id number]
[2019-07-24] MEDS: Polyethylene Glycol 3350 17 GM PACKET PO (10:13)
[2019-07-24] MEDS: Acetaminophen 500 MG TAB 1000 MG PO (10:13)
--- NOTE | 2019-07-24 15:31 | PDOC.CMDIS ---
- If Service Date Differs Date of service: 07/24/19 Time of Service: 15:31 LACE Index Scoring Tool - Questions: Length of Stay (in days): 3 Acuity (Admit via E.D.?): No E.D. Visits: 2 - Answers: Total Score: 5 Risk of Readmission: Low Risk Care Management Discharge Reason for Hospitalization: Total Right Hip Discharge Plan: Jayme will return home with no additional services. His friend, Kashif, will transport him home via private vehicle. He will have a follow up with ortho as recommended. Patient/Family Education Needs: Review discharge instructions regarding activity levels and medications, discussion of self care needs including Ask Me Three
--- NOTE | 2019-07-24 15:55 | INDS_ITS ---
Date of service: 07/24/19 PT Notes Inpatient Physical Therapy Discharge Summary Dates: 07/23/2019 Dates of Service: 07/23/2019 and This is a clinical summary of care provided on the duration of dates listed above. No charge was made in the completion of this documentation. Referring Doctor: Cal Cortés MD PT Orders: PT CONSULT: S/P R WENDY Precautions: Fall. Standard. WBAT on R LE. Patient Profile/Admitting Diagnosis: Patient is a 78-year-old male s/p R WENDY on POD 1 due to primary unilateral osteoarthritis. PMHX: Medical History Cough Dysphonia HTN (hypertension) Hx of transient ischemic attack (TIA) Hyperlipidemia Kidney stone Latex allergy Lower back pain Osteoarthritis Pharyngitis Radicular pain Rotator cuff (capsule) sprain Shingles (Acute) rt hand (healing pustules) and rt arm pain up to rt shoulder and rt side of his back per patient. SOB (shortness of breath) Surgical History (Updated 07/18/19 @ 18:05 by Melania Nicole) Colonoscopy - IV Sedation DISCECTOMY Endoscopic Carpal Tunnel release B/L History of arthroscopy of left knee (Chronic) History of cataract surgery (Chronic) Lithotripsy Total replacement of hip LEFT Social History/Home Situation: Patient lives in a one story home with his . He reports there is one step to enter the home, and one step to enter the bedroom. Patient was independent with all aspects of mobility ADL without the need for an assistive device nor an adaptive equipment. Equipment Owned/DME: His uses a walker which he has borrowed, but says she needs it back. He will require his own FWW when he returns home. Subjective: NT Objective: General Observation: NT Mental Status: NT Pain: NT ROM: Right Lower Extremity: Hip flexion < 50%, unable to lift thigh beyond 90 degrees while seated at EOB. Hip abduction WFL. Knee flexion WFL. Knee extension <80%. Ankle dorsiflexion 0 degrees. Ankle plantarflexion WFL. Left Lower Extremity: Hip flexion WFL. Hip abduction WFL. Knee flexion WFL. Ankle dorsiflexion WFL. Ankle plantarflexion WFL. Strength: Right Lower Extremity: Hip flexors 3-/5. Hip abductors 5/5. Knee extensors 3-/5. Ankle dorsiflexors 3-/5. Ankle plantarflexors 5/5. Left Lower Extremity:Hip flexors 5/5. Hip abductors 5/5. Knee extensors 5/5. Ankle dorsiflexors 5/5. Ankle plantarflexors 5/5. Sensation: Intact as to pain and pressure on bilateral lower extremities. Bed Mobility/Transfers: Rolling I Supine to sit I Sit to supine I Sit to stand I Stand to sit I Bed to chair I Chair to bed I Gait: Patient ambulated 200 FEET with FWW and supervision with wheelchair follow. He ascended and descended three 4-inch steps, and two 6-inch steps while holding onto bilateral rails with step over step pattern. He then ambulated 75? back to his room with FWW and supervision. He exhibited a reciprocal gait pattern with decreased step height and length, decreased bubba and overall gait speed. Balance: Static Sitting: Normal Dynamic Sitting: Normal Static Standing: Good Dynamic Standing: Fair Assessment: Patient is a 78-year-old male s/p R WENDY POD 1 due to primary osteoarthritis. He reports that his has limited ability due to rheumatoid arthritis, but they ?compliment? each other?s abilities. He ambulates well considering the short time that has passed since surgery, but does report pain during ambulatory activities. He is a motivated individual and his comorbidities are not predicted to significantly impact his recovery. His prognosis is good. Patient presents with clinical signs and symptoms consistent with current/admitting diagnoses that have resulted to mobility limitations, gait instability, generalized weakness, and impairment of motor control as demonstrated by the following impairment level findings: 1. Decreased strength to R LE major muscle groups 2. Impaired standing balance 3. Impaired activity tolerance 4. Limitation of joint range of motion in R hip and knee Impairments are contributing to the following functional limitations: 1. Inability to safely ambulate without assistive device and physical assist ance 2. Increase completion time for mobility ADL performance 3. Increased fall risk 4. Inability to negotiate steps alone safely Goals: Goals X1 week 1. Independent gait on level surface with use of least restrictive device for at least 300 feet without report of pain nor dyspnea NOT MET 2. Independent stair negotiation while holding onto bilateral rails for at least 5 steps without report of pain nor dyspnea NOT MET 3. Independent with home exercise program NOT MET 4. Good static and dynamic standing balance/tolerance NOT MET DISCHARGE RECOMMENDATIONS: Patient is to be discharged to home after all of the above goals are met and he is medically stable. Patient will require a front- wheeled walker at home to reduce fall risk and maximize mobility independence. TREATMENT CODE/TIME: NC. Thank you very much for this referral. Janell Holcomb PT, DPT, CLT [facility]
== END 2019-07-24 10:55 | disposition home or self-care (01) | DRG 470 ==
LOC: PDS 11:29 → MS 17:15
PROVIDERS: Admitting Provider Student in an Organized Health Care Education/Training Program; PCP Internal Medicine; Visit Provider Student in an Organized Health Care Education/Training Program
PROC: 0SR904A Replacement of Right Hip Joint with Ceramic on Polyethylene Synthetic Substitute, Uncemented, Open Approach (ICD-10-PCS; CPT 27130; principal; 2019-07-22 14:15)
DX: M16.11 Unilateral primary osteoarthritis, right hip (principal); M25.551 Pain in right hip; Z96.641 Presence of right artificial hip joint; I10 Essential (primary) hypertension; E78.5 Hyperlipidemia, unspecified; Z23 Encounter for immunization
CPT/HCPCS: 27130; 97110; 97162; 97530; NC; 72170; 73501; J0690; J1885; J2250; J2405; J8540

== ENCOUNTER 2019-08-07 09:35 | Outpatient (CLI) | payer MEDICARE, OTHER, SELFPAY ==
--- NOTE | 2019-08-07 09:33 | DI.RAD_ITS ---
EXAM: XR HIP RT COMPLETE AP PELVIS CLINICAL HISTORY: 1ST POST OP LEFT WENDY TECHNIQUE: COMPARISON: XR PELVIS AP from 07/23/2019 FINDINGS: Three views were obtained. There are bilateral hip joint replacements in position. The components a ppear well seated. No other significant bony abnormality seen. IMPRESSION:
== END 2019-08-07 09:55 ==
PROVIDERS: PCP Internal Medicine; Referring Provider Internal Medicine; Visit Provider Student in an Organized Health Care Education/Training Program
DX: M16.11 Unilateral primary osteoarthritis, right hip (principal); Z96.641 Presence of right artificial hip joint; Z47.1 Aftercare following joint replacement surgery
CPT/HCPCS: 73502

== ENCOUNTER → 2019-09-02 10:04 | Outpatient (BNVA) | payer MEDICARE, OTHER, SELFPAY | PROVIDERS: PCP Internal Medicine; Referring Provider Internal Medicine; Visit Provider Nurse Practitioner Adult Health | DX: G56.01 Carpal tunnel syndrome, right upper limb (principal); G56.21 Lesion of ulnar nerve, right upper limb | CPT/HCPCS: 95909; 99203; 99214 ==

== ENCOUNTER → 2019-10-06 10:04 | Outpatient (BNVA) | payer MEDICARE, OTHER, SELFPAY | PROVIDERS: PCP Internal Medicine; Referring Provider Internal Medicine; Visit Provider Student in an Organized Health Care Education/Training Program | DX: G56.01 Carpal tunnel syndrome, right upper limb (principal) | CPT/HCPCS: 99213 ==

== ENCOUNTER 2019-10-29 05:53 | Day surgery (SDC) | payer MEDICARE, OTHER, SELFPAY ==
[2019-10-29 06:31] VITALS: BP 129/86; PULSE 61; RESP 17; TEMP 36.6; O2SAT 92
[2019-10-29] MEDS: Lactated Ringers 1,000 ML 80 ML IV (06:45)
--- NOTE | 2019-10-29 07:15 | W.PREOPHP ---
Date of service: 10/29/19 Time of Service: :15 Assessment and Plan Assessment and plan (1) Carpal tunnel syndrome, right: Status: Acute Assessment and plan: After a review of clinical history, exam findings, carpal tunnel syndrome is the most reasonable diagnosis. We discussed possible treatment options to include nighttime splinting, anti-inflammatories, carpal tunnel injections, and eventually surgery. Due to the persistence of symptoms and their daily limitations with normal function, I offered a carpal tunnel release. I discussed the technical details of carpal tunnel release and that I perform an endoscopic release, but would make a larger, open, incision if necessary for visualization. I discussed the risks of the procedure to include, but not limited to, bleeding, infection, palmar pain, stiffness, damage to nerves, damage to vessels, damage to tendons, weakness, recurrence, and incomplete release. Given these risks, Bijan desires to proceed. History of Present Illness History of Present Illness Chief Complaint: Right Hand Numbness and Pain Consults Requesting physician: Cal Cortés Narrative: Bijan is a 79yo RHD male with persistent right hand numbness and pain. He has been diagnosed with CTS. He has had no changes in his symptoms. Review of Systems All systems reviewed & are unremarkable except as noted in HPI and below PFSH Medical History Cough Dysphonia HTN (hypertension) Hx of transient ischemic attack (TIA) 2012 Hyperlipidemia Kidney stone Latex allergy Lower back pain Osteoarthritis Pharyngitis Radicular pain Rotator cuff (capsule) sprain Shingles (Acute) rt hand (healing pustules) and rt arm pain up to rt shoulder and rt side of his back per patient. 05/02 SOB (shortness of breath) Surgical History Colonoscopy - IV Sedation DISCECTOMY Endoscopic Carpal Tunnel release B/L History of arthroscopy of left knee (Chronic) History of cataract surgery (Chronic) Lithotripsy Total replacement of hip BILATERAL Family History Father Cirrhosis Social History Smoking/Tobacco Use Status: Never Alcohol Intake: never Drug use: Never Substance use type: does not use Current gender identity: male Do you feel safe at home: Yes Do you feel safe in your relationship?: Yes Meds Home Medications and Allergies Home Medications Medication Instructions Recorded Confirmed Type aspirin 325 mg PO DAILY tab-cap 08/10/17 10/29/19 History hydrochlorothiazide 25 mg PO DAILY tab-cap 08/10/17 10/29/19 History sennosides-docusate sodium [Senna 2 tab PO QHS PRN 11/13/18 10/29/19 History Laxative-Stool Softener] acetaminophen 500 mg capsule 1,000 mg PO Q8H PRN #90 cap 06/27/19 10/29/19 Rx atorvastatin 10 mg tablet 10 mg PO DAILY 08/20/19 10/29/19 History ibuprofen 600 mg tablet 600 mg PO BID tab 09/02/19 10/29/19 History gabapentin 300 mg PO BID 10/29/19 10/29/19 History Allergies Allergy/AdvReac Type Severity Reaction Status Date / Time codeine AdvReac Mild Verified 10/29/19 06:19 enalapril AdvReac Mild Verified 10/29/19 06:19 latex AdvReac Mild rash Verified 10/29/19 06:19 lisinopril AdvReac Mild Verified 10/29/19 06:19 pravastatin AdvReac Mild Verified 10/29/19 06:19 Exam Const General: cooperative, healthy appearing and comfortable Nutritional Appearance: average body habitus Orientation: alert, awake and oriented x3 Resp Effort & Inspection: normal respiratory effort Auscultation: clear to auscultation bilaterally Cardio Rate: regular rate Rhythm: regular rhythm Results Last Vital Signs Temp 36.6 C 10/29/19 06:31 Pulse 61 10/29/19 06:31 Resp 17 10/29/19 06:31 BP 129/86 10/29/19 06:31 Pulse Ox 92 L 10/29/19 06:31
[2019-10-29] MEDS: ceFAZolin 2 GM/50 ML BAG IVPB (07:24)
--- NOTE | 2019-10-29 07:27 | W.PM.DSUDISC ---
Discharge Plan Disposition Patient Disposition: HOME Condition: Good Discharge Details Reason For Visit: Right carpal tunnel syndrome Attending Provider: Cal Cortés Primary Care Provider: Alcides Estrada Home Meds and New Rx's Prescriptions: Continued acetaminophen 500 mg capsule 1,000 mg PO Q8H PRN (Reason: pain) Qty: 90 RF: 2 ibuprofen 600 mg tablet 600 mg PO BID RF: 0 aspirin 325 MG tablet 325 mg PO DAILY RF: 0 hydrochlorothiazide 12.5 MG capsule 25 mg PO DAILY RF: 0 atorvastatin 10 mg tablet 10 mg PO DAILY RF: 0 gabapentin 300 mg Capsule 300 mg PO BID RF: 0 sennosides-docusate sodium [Senna Laxative-Stool Softener] 8.6-50 mg Tablet 2 tab PO QHS PRNRF: 0 Discharge Instructions Stand Alone Forms: Milana Edwards Tunnel Release Referrals: Cal Cortés MD [ [facility] STAFF PHYSICIAN] - Activity:: Activity as Tolerated Remove Dressings/Wound Care:: 48 hours Shower/Bathe:: 48 hours Diet:: As Tolerated Discharge Orders Discharge Orders: Discharge Order (Routine); Ordered 10/29/19 Ordered By: Melania Nicole DS: Diagnosis Discharge Diagnosis (1) Carpal tunnel syndrome, right: Status: Acute
[2019-10-29] MEDS: Sodium Bicarbonate 50 MEQ/50 ML VIAL (07:33)
[2019-10-29 08:25] VITALS: BP 126/71; PULSE 71; RESP 16; TEMP 36.5; O2SAT 95
--- NOTE | 2019-10-29 10:22 | W.PM.OP ---
Date of service: 10/29/19 Time of Service: 07:54 Operative Note Operative Note DATE OF PROCEDURE: 10/29/19 POST-OP DIAGNOSIS: same PROCEDURE: Right Endoscopic Carpal Tunnel Release SURGEON: Cal Cortés ANESTHESIA: ASHOK ESTIMATED BLOOD LOSS: 0 PATHOLOGY: none sent TOURNIQUET TIME: 8 COMPLICATIONS: None Patient was transported to: same day Patient's condition: stable Indications: I have seen Bijan in clinic for symptoms of carpal tunnel syndrome. The numbness, tingling, and pain limited function. Clinical exam findings confirmed the diagnosis of carpal tunnel syndrome. Nonoperative measures such as bracing, time, activity modifications had been tried but disability and pain persisted. I discussed carpal tunnel release with the patient. I reviewed the risks of the procedure to include, but not limited to, bleeding, infection, pain, stiffness, incomplete release, damage to nerves or vessels, persistent numbness, recurrence. Despite these risks, the patient elected to proceed. Findings: The carpal tunnel was dilated and released successfully with the endoscopic with increased space within the tunnel. The antebrachial fascia was released proximally freeing the median nerve at the wrist. Procedure Description: Bijan was greeted in the preoperative holding area where the correct side was identified and marked. The consent was reviewed with the patient and signed. The history and physical was updated. All questions were answered. Bijan was taken back to the operating room. The patient was placed into the supine position on the operating room table with the right arm on an arm board. A nonsterile tourniquet was placed high onto the arm. All bony prominences were well padded. Prophylactic antibiotics in the form of Cefazolin were administered. The right arm was then prepped with Chloraprep and draped in a standard fashion with stockinette and extremity drape. A timeout to confirm correct identity, side and site, procedure, allergies, anesthesia, and medical concerns was performed. The surgical site was marked in the volar wrist creases in line with the radial border of the fourth ray. This area was anesthetized with approximately 6cc of 1% Lidocaine. The limb was then exsanguinated with an Esmarch. The skin was incised with a 15 blade, approximately 1cm. The skin only was cut and the deeper tissue was dissected bluntly with a tenotomy scissor, avoiding passing nerve and venous structures. The fascia was penetrated and opened bluntly. A two-prong skin hook was placed under this proximal fascial edge. A series of hamate finders were used to identify and dilate the carpal tunnel. Synovial elevator was used to free synovial attachments to the underside of the transverse carpal ligament. My thumb was kept in the palm to issa the distal extent of the carpal tunnel and correctly position the hand. The Microaire endoscope was inserted without difficulty and without resistance. Excellent visualization showed horizontally running fibers of the transverse carpal ligament (TCL). The distal extent of the TCL was visualized and the end of the scope palpated with the thumb. The blade was elevated and withdrawn from distal to proximal. The TCL was split into two flaps. The endoscope was reinserted to confirm complete release and any remnant ligament was incised. The scope was withdrawn and the proximal aspect of the carpal tunnel was grossly inspected and appeared release with the median nerve visible. The antebrachial fascia at the level of the wrist was then freed from the overlying skin and then the underlying median nerve with blunt dissection. This was transected longitudinally for about 3cm proximal to the wrist incision. The wound was then irrigated with easy flow of irrigant distally and proximally. The incision was closed with a single 4-0 Nylon suture. The wound was dressed with Xeroform, Gauze, Kerlix and Ky. The tourniquet was deflated with the initial dressing and held with some pressure. Blood flow returned easily to all digits with capillary refill less than 2 seconds. The patient tolerated the procedure well and was returned to the Same Day Surgery area in a stable condition suffering no known complication.
== END 2019-10-29 08:45 | disposition home or self-care (01) ==
PROVIDERS: PCP Internal Medicine; Visit Provider Student in an Organized Health Care Education/Training Program
PROC: 01N54ZZ Release Median Nerve, Percutaneous Endoscopic Approach (ICD-10-PCS; CPT 29848; principal; 2019-10-29 07:30)
DX: G56.01 Carpal tunnel syndrome, right upper limb (principal)
CPT/HCPCS: 29848; NC; J0690; J2001; J2704; L3650

== ENCOUNTER → 2019-11-06 10:54 | Outpatient (BNVA) | payer MEDICARE, OTHER, SELFPAY | PROVIDERS: PCP Internal Medicine; Referring Provider Internal Medicine; Visit Provider Student in an Organized Health Care Education/Training Program | DX: Z47.89 Encounter for other orthopedic aftercare (principal); G56.01 Carpal tunnel syndrome, right upper limb; I10 Essential (primary) hypertension ==

== ENCOUNTER 2019-12-01 13:10 | Outpatient (CLI) | payer MEDICARE, OTHER, SELFPAY ==
[2019-12-01 14:30] LABS: HCT 41.7 % (40.0-50.0); HGB 14.2 g/dL (13.5-17.5); Mean Corp. HGB Concentration 34.1 g/dL (32.0-36.0); Mean Corpuscular Hemoglobin 32.4 pg (27.0-33.0); Mean Corpuscular Volume 95.2 fL (80-95); Mean Platelet Volume 9.7 fL (8.0-11.0); Platelet Count 151 x1000/uL (130-400); RBC 4.38 m/cumm (4.50-6.00); RBC Distribution Width 13.6 % (11.8-14.1); White Blood Cell Count 5.63 k/cumm (4.4-10.8)
[2019-12-01 15:43] LABS: Anion Gap 9.9 mmol/L (3-11); BUN 15 mg/dL (7-18); CO2 30.1 mmol/L (21.0-32.0); CREATININE 1.26 mg/dL (0.70-1.30); Calcium 9.1 mg/dL (8.5-10.1); Chloride 103 mmol/L (98-107); Estimated GFR 55.21 (mL/min/1.73m2); Glucose 91 mg/dL (74-106); Sodium 143 mmol/L (136-145)
== END 2019-12-01 13:30 ==
PROVIDERS: PCP Internal Medicine; Visit Provider Student in an Organized Health Care Education/Training Program
DX: M25.561 Pain in right knee (principal); M17.11 Unilateral primary osteoarthritis, right knee; I25.10 Atherosclerotic heart disease of native coronary artery without angina pectoris; I10 Essential (primary) hypertension; Z01.818 Encounter for other preprocedural examination; Z01.812 Encounter for preprocedural laboratory examination
CPT/HCPCS: 36415; 80048; 85027; 86850; 86900; 86901

== ENCOUNTER 2019-12-01 13:33 | Outpatient (CLI) | payer MEDICARE, OTHER, SELFPAY | END 2019-12-01 13:53 | PROVIDERS: PCP Internal Medicine; Visit Provider Student in an Organized Health Care Education/Training Program | DX: Z01.818 Encounter for other preprocedural examination (principal); M17.11 Unilateral primary osteoarthritis, right knee; I10 Essential (primary) hypertension ==

== ENCOUNTER 2019-12-03 05:51 | Inpatient (IN) | payer MEDICARE, OTHER, SELFPAY ==
[2019-12-01 13:27] VITALS: BP 114/80; PULSE 83; RESP 18; TEMP 36.2; O2SAT 95
--- NOTE | 2019-12-01 14:08 | PDOC.CMPRO ---
- If Service Date Differs Date of service: 12/01/19 Time of Service: 14:08 Care Management Progress Note S/O: Jayme, who goes by Mike, is a 79 year old male who lives in [place] with his . He reports he has had both hips and knees replaced in the past, so he knows what to expect. Mike lives in a one-story home with one step and guardrails going into the house. The bathroom and various other rooms in the home are also equipped with handrails. Mike states he has a shower chair and a FWW. A: Mike is a 79 year old male who will be admitted to [facility] on Tuesday, December 03, 2019, for a right knee replacement. P: Anticipate no services needed at time of discharge. Mike's cousin will drive him home when ready for discharge.
[2019-12-03] VITALS (17 sets, daily range): BP systolic 112–151; BP diastolic 51–93; PULSE 67–89; RESP 13–22; TEMP 36.2–36.9; O2SAT 93–96
[2019-12-03] MEDS: Acetaminophen 500 MG TAB 1000 MG PO ×3 (06:32→19:22)
[2019-12-03] MEDS: Gabapentin 300 MG CAP PO ×2 (06:33→19:23)
[2019-12-03] MEDS: Celecoxib 200 MG CAP 400 MG PO (06:33)
[2019-12-03] MEDS: Lactated Ringers 1,000 ML 80 ML IV ×4 (06:45→19:21)
[2019-12-03] MEDS: ceFAZolin 2 GM/50 ML BAG IVPB (07:50)
[2019-12-03] MEDS: Normal Saline 20 ML VIAL (09:36)
[2019-12-03] MEDS: Ketorolac 30 MG/ML VIAL (09:36)
[2019-12-03] MEDS: Bupivacaine 0.25% Pres-Free 30 ML VIAL (09:36)
[2019-12-03] MEDS: HYDROmorphone 2 MG/ML VIAL IVP ×2 (11:07→11:25)
[2019-12-03] MEDS: Normal Saline Flush 10 ML SYR IV (11:07)
[2019-12-03] MEDS: ceFAZolin 1 GM/50 ML BAG IVPB ×2 (12:12→19:21)
[2019-12-03] MEDS: oxyCODONE 5 MG TAB PO ×2 (12:24→17:13)
--- NOTE | 2019-12-03 15:15 | PT.INIE ---
Date of service: 12/03/19 Time of Service: 13:05 PT Notes Visit Reasons: R KNEE DJD Physical Therapy Inpatient Initial Evaluation Date: 12/03/2019 Referring Doctor: Cal Cortés M.D. PT Orders: PT CONSULT: s/p ortho surgery Precautions: Fall. Standard. Activity as tolerated. Patient Profile/Admitting Diagnosis: Pt is a 79-year-old male with history of primary unilateral osteoarthritis status post right total knee arthroplasty on post-operative day 0. PMHX: Medical History Cough Dysphonia HTN (hypertension) Hx of transient ischemic attack (TIA) 2011 Hyperlipidemia Kidney stone Latex allergy Lower back pain Osteoarthritis Pharyngitis Radicular pain Rotator cuff (capsule) sprain Shingles (Acute) rt hand (healing pustules) and rt arm pain up to rt shoulder and rt side of his back per patient. 05/02 SOB (shortness of breath) Surgical History (Updated 12/03/19 @ 06:12 by Millie Estrada) Colonoscopy - IV Sedation DISCECTOMY pt. reports laminectomy Endoscopic Carpal Tunnel release B/L History of arthroscopy of left knee (Chronic) History of carpal tunnel release (Acute 10/29/19) ECTR for recurrent carpal tunnel Had undergone bilateral open ~2009 History of cataract surgery (Chronic) History of total left knee replacement (TKR) (Resolved) 11/19/2018 Lithotripsy Total replacement of hip BILATERAL Social History/Home Situation: Pt lives at home with his in [place]. Notes there are no stairs to enter the house, but one step to enter the bedroom and two steps to enter the kitchen. Equipment Owned/DME: front-wheeled walker. Subjective: Pt reports that he is experiencing pain in his right hip after the surgery. He believes he will be discharged tomorrow morning. Objective: General Observation: Mepilex dressing over incision. SHAHANA bandage and cryocuff on R knee. Anti-thromboembolic pumps on bilateral LEs. Mental Status: alert an oriented x4 Pain: 8/10 pain in right hip ROM: Right Upper Extremity: Shoulder Flexion WFL. Shoulder abduction WFL. Elbow flexion WFL. Wrist flexion WFL. Opening and closing of hand WFL. Left Upper Extremity: Shoulder Flexion WFL. Shoulder abduction WFL. Elbow flexion WFL. Wrist flexion WFL. Opening and closing of hand WFL. Right Lower Extremity: Hip flexion WFL. Hip abduction WFL. Knee flexion 120 degrees. Knee extension 0 degrees. Ankle dorsiflexion WFL. Ankle plantarflexion WFL. Left Lower Extremity: Hip flexion WFL. Hip abduction WFL. Knee flexion WFL. Ankle dorsiflexion WFL. Ankle plantarflexion WFL. Strength: Right Upper Extremity: Shoulder flexors 5/5. Shoulder abductors 5/5. Elbow flexors 5/5. Elbow extensors 5/5. Compensation And Benefits Administrator strong. Left Upper Extremity: Shoulder flexors 5/5. Shoulder abductors 5/5. Elbow flexors 5/5. Elbow extensors 5/5. Compensation And Benefits Administrator strong. Right Lower Extremity: Hip flexors 4+/5. Hip abductors 4+/5. Knee flexors 3-/5. Knee extensors 4-/5. Ankle dorsiflexors 5/5. Ankle plantarflexors 5/5. Left Lower Extremity: Hip flexors 5/5. Hip abductors 5/5. Knee flexors 5/5. Knee extensors 5/5. Ankle dorsiflexors 5/5. Ankle plantarflexors 5/5. Sensation: Intact as to pain and pressure on bilateral lower extremities. Bed Mobility/Transfers: Rolling SBA Supine to sit SBA Sit to supine SBA Sit to stand Supervision Stand to sit Supervision Bed to chair Supervision Chair to bed Supervision Gait: Pt was able to ambulate 200 feet, WBAT on the right LE, using a front-wheeled walker. CGA provided by PT student with wheelchair follow provided by PT. Step to gait pattern with asymmetrical step length and height. Decreased knee flexion bilaterally with ambulation. Complains of 8/10 pain in right hip. Balance: Static Sitting: Normal Dynamic Sitting: Normal Static Standing: Fair Dynamic Standing: Fair Special Tests: Mobility Limitations Standardized Measure [facility]-PAC 6 clicks Basic Mobility Inpatient Short Form: Raw Score: 22 CMS Score: 21% deficit Informed Consent/Education: Patient instructed in purpose of PT consult and plan of care. Instructed the patient in exercises to perform every hour while in the hospital including gluteus sets x10, quadriceps sets x10, ankle pumps x10, LAQ x10. Assessment: Pt is a 79-year-old male with history of primary osteoarthritis presenting on status post right total knee arthroplasty on post-operative day zero. He presents to physical therapy with impairment level findings and functional limitations as listed below. Pt demonstrates good mobility with ambulation when using a front-wheeled walker. He would benefit from skilled physical therapy at this time. Patient presents with clinical signs and symptoms consistent with current/admitting diagnoses that have resulted to mobility limitations, gait instability, and generalized weakness as demonstrated by the following impairment level findings: 1. Decreased strength to R knee major muscle groups 2. Impaired standing balance 3. Impaired activity tolerance 4. Limitation of joint range of motion in right knee Impairments are contributing to the following functional limitations: 1. Inability to safely ambulate without assistive device and physical assistance 2. Increase completion time for mobility ADL performance 3. Increased fall risk 4. Inability to negotiate steps alone safely Patient is assessed as a 13532 moderate complexity based on the following: History: Pt presents with impairment level findings and functional limitations as listed above. AM-PAC raw score of 22 with 21% deficit. Examination: Demonstrable impairment in strength, balance, and range of motion with underlying impairments and functional limitations as documented above Presentation: Evolving Decision Makin moderate complexity Goals: Goals X1 week 1. Supine-Sit independent 2. Sit-Supine independent 3. Sit-Stand independent 4. Stand-Sit independent 5. Bed-Chair independent 6. Chair-Bed independent 7. Independent gait on level surface with use of least restrictive device for at least 300 feet without report of pain nor dyspnea 8. Independent stair negotiation while holding onto bilateral rails for at least 4 steps without report of pain nor dyspnea 9. Independent with home exercise program 10. Good static and dynamic standing balance/tolerance Plan of Care/Treatment Plan: 1-2x/day, 7 days/week x 1 week. Plan of care has been reviewed with the INFORMATION MANAGER providing the service under Physical Therapy direction. Initiate Physical Therapy intervention for strengthening, bed mobility, transfers, gait, stairs, balance training, use of assistive device. DISCHARGE RECOMMENDATIONS: Discharge to home when medically cleared. Recommend the use of a front-wheeled walker for ambulation. TREATMENT CODE/TIME: 24130 x 30 minutes beginning at 13:05 P.M. Thank you very much for this referral. Mindy Hatch, SPT Doctor of Physical Therapy Student [facility] Supervision provided by Janell Holcomb PT, DPT, CLT [facility], [place]
[2019-12-03] MEDS: Celecoxib 200 MG CAP PO (19:22)
--- NOTE | 2019-12-03 21:38 | ROE_ITS ---
Date of service: 12/03/19 Time of Service: 10:38 Operative Note Operative Note DATE OF PROCEDURE: 12/03/19 PRE-OP DIAGNOSIS: Right Knee Osteoarthritis POST-OP DIAGNOSIS: same PROCEDURE: Right Total Knee Replacement SURGEON: Cal Cortés EMERGENCY SERVICES DIRECTOR: Melania Nicole ANESTHESIA: GETA and regional ESTIMATED BLOOD LOSS: 300 PATHOLOGY: none sent TOURNIQUET TIME: 0 COMPLICATIONS: None Patient was transported to: PACU Patient's condition: stable Implants: 1. Depuy Attune Posterior Stabilized Femoral Component, Size 8 2. Depuy Attune Fixed Platform Tibial Component, Size 7 3. Depuy Attune 8x5mm Fixed, Stabilized Poly 4. Depuy Attune Patellar Component, Size 38mm Indications: I have seen Bijan in clinic for symptoms of RIGHT knee arthritis, confirmed with radiographic findings. He has exhausted nonoperative methods and was having significant limitations in daily function and desired better function and less pain. I discussed the technical details of a knee replacement. I explained the risks of the procedure to include, but not limited to, bleeding, infection, pain, stiffness, fracture, damage to nerves and vessels, damage to muscles and tendons, loosening, need for repeat procedure, blood clot and cardiopulmonary demise. Despite these risks, Bijan elected to proceed. Findings: There was significant signs of arthritis throughout the knee. These were focused medially but involving all 3 compartments. Procedure Description: Bijan was greeted in the preoperative holding area where the correct side was identified and marked. The consent was reviewed with the patient and signed. The history and physical was updated. All questions were answered. Preoperative mediacations were administered: Acetaminophen 1000mg, Celebrex 400mg, and Gabapentin 300mg. An adductor canal block was then administered by the anesthesia team in the PACU. Bijan was taken back to the operating room. A spinal anesthetic was attempted but was unsuccessful so a genearl anesthetic was administered. The patient was placed into the supine position on the operating room table. A nonsterile tourniquet was placed high onto the leg but only used for cementing. Posts were placed for positioning during the procedure. All bony prominences were well padded. Prophylactic antibiotics in the form of Cefazolin were administered. 1g of Tranxemic Acid was given intravenously within 30 minutes of incision. The right leg was then prepped with Chloraprep and draped in a standard fashion with impervious stockinette. A second prep with Chloraprep was performed prior to application of Iodine impregnated skin protection. A timeout to confirm correct identity, side and site, procedure, allergies, anesthesia, and medical concerns was performed. With the knee in some flexion, a midline incision was made overlying the knee. Full thickness skin flaps were raised once the extensor mechanism was encountered. These were raised medially and laterally. Any bleeding was controlled with electrocautery. Once the extensor mechanism was fully exposed, a medial parapatellar arthrotomy was performed in a flexed position. All bleeding from the arthrotomy and the geniculate arteries was coagulated. A medial subperiosteal peel was performed with electrocautery to the midcoronal plane. The fat pad was removed while keeping the patellar tendon protected. The anterior distal femur synovium was removed for later visualization. The ACL and PCL were resected and the anterior horn of the lateral meniscus was transected. The knee was then flexed with the patella everted. Large osteophytes from the tibia were removed. Large osteophytes from the femur were removed. Using a step drill, and based on preoperative templating, the femoral canal was entered. This was done with a step drill without any difficulty. The intramedullary distal femoral cut guide was inserted, set to a 5 degree valgus cut and 9mm cut thickness. The distal femoral cut guide was then held in posi tion and pinned. With the soft tissues protected, the distal cut was performed. This was passed over a few times to ensure a planar cut. I then turned attention to the tibia. The extramedullary guide was placed onto the leg. The distal aspect was slid medial to adjust for position of center of ankle and stay in line with shaft of the tibia. Approximately 3-5 degrees of posterior slope was kept in the proximal cutting guide. The center of the guide was aligned with the PCL. The stylus was used to assess cut thickness. The medial side, most involved side, was set for a 2mm cut, corresponding to a 8mm lateral cut. This was then held in position and pinned into place with 2 additional pins and a cross pin for stability. The medial and lateral collateral ligaments were protected and the cut was performed. With this completed, it was assessed and noted to be of appropriate dimensions. The guide was removed. A spacer block was inserted and the knee was brought into extension. The 5mm spacer block provided full extension, without hyperextension and with stability of both the medial and lateral collateral ligaments was assessed. The pins from the femur and the tibia were then removed. The distal femur was then sized. The anterior stylus was placed onto the lateral ridge of the anterior femur. This indicated a size 8 femur. The external rotation of the guide was adjusted to 3 degrees to match the epicondylar axis, perpendicular to Dolores?s line. The 4-in-1 cutting guide was the placed. The posterior medial femur cut was evaluated and appeared of good thickness. The spacer block was inserted underneath the cutting guide and stability was confirmed in 90 degrees of flexion. An chepe wing was used to confirm appropriate position of the anterior cut to avoid notching. This cutting guide was ensured to be flush on the cut surface and then pinned into place with headed pins. While protecting the soft tissues, quad tendon, and collateral ligaments, the anterior and posterior cuts were performed with a saw. The central two pins were removed and the posterior and anterior chamfers were cut next. The notch-cutting guide was placed. This was pinned to lateralize the femoral component as much as possible while keeping it flush on the cut surface. This was then pinned into position. A reciprocating saw was used to make the notch cut. A rasp smoothed the cut surfaces. A trial posterior stabilized femoral component was then inserted, impacted down to the cut surfaces, and the lug holes were drilled. A provisional trial tibial component was placed and the knee was brought through range of motion. There was noted to be excellent extension and flexion. There was no significant instability. The patella was tracking without thumbs. The tibial cut surface was fully exposed. The medial and lateral menisci were removed. The tibia was then sized as a 7. The tibia had been previously marked during trialing to correspond to the center of the tibial component to help with rotation. The trial was aligned to this issa, approximately rotated to the medial 1/3rd of the tibial tubercle. The trial was pinned into place. The tibia was prepared with a reamer and a keel punch. The knee was then brought into extension and the patella was measured as 33mm. Using the patellar clamp and cut guide, this was resected to a flat surface with at least 13mm of thickness remaining. The size 38 patella fit the best. This was oriented and then clamped into position. The lugs were drilled. The trial components were removed. The final components, except for the polyethylene were opened on the back table. The periosteal and capsular tissues, especially posteriorly, around the knee were then systematically injected with a periarticular cocktail consisting of 50cc 0.25% Marcaine, 30mg Ketorolac, 20cc of Exparal and 50cc of injectable saline. The tourniquet was then inflated to 275mmHg. The knee was thoroughly irrigated with a pulse lavage and dried. On the back table, with the implants opened, the cement was mixed. 2 batches of antibiotic laden cement were prepared with vacuum assistance. After the cement was ready a small amount was placed on to the back side of the tibial component at the keel. A small amount was placed onto the posterior flange of the femur. Cement was manual pressurized and impregnated into the cut surface of the tibia. The tibial component was then inserted into the cut surface and impacted into position. Excess cement was removed and the component was reimpacted. Again, excess cement was removed and our attention was then turned to the femur. The femoral cut surface was once again dried and cement was manually impacted into the cut surface. The femoral component was lined with the lug holes and impacted. Excess cement was removed. It was ensured to be down against the cut surface. The trial polyethylene was then inserted and the leg was brought out into full extension for the duration of the cement curing process, approximately 15min. Cement was lastly manually impacted into the cut surface of the patella and the patellar button was clamped into position and held. During this process attention was turned to the gutters of the knee and for all interfaces for any excess cement. While the cement was hardening, the knee was irrigated with Irrisept chlorhexadine solution. This was allowed to sit in the knee for 3 minutes. After the cement had finally cured, approximately 15min, the clamp was removed from the patella and the knee was taken through range of motion. A size 5mm polyethylene component provided the best range of motion and stability with less than 2mm gapping with medial and lateral stress and full extension without significant hyperextension. The patella was tracking with a no-thumbs technique. The trial poly was removed and once again the knee was checked for any loose, excess, or errant cement. The poly component was then inserted and impacted into position after cleaning and drying the tibial tray. The capsule was then reapproximated with a No. 1 Vicryl at multiple locations. The capsule was finally closed with a No. 2 Stratafix, barbed suture. The tourniquet was then released and the arthrotomy appeared watertight without significant bleeding. The second dosing of 1g TXA was started. Deep tissues were then reapproximated with 0 Vicryl and 2-0 Vicryl. The skin was closed with a running 3-0 Monocryl in a subcuticular fashion. This was reinforced with skin glue. A Mepilex silver dressing was applied along with a [id number] SHAHANA wrap. A CryoCuff was applied. Bijan was transferred to the hospital bed without difficulty an suffering no apparent complication. Bijan has a good prognosis. Physical therapy will start today and without restrictions, weight-bearing as tolerated. Aspirin 325mg daily, home regimen, will be used for DVT prophylaxis.
[2019-12-03] MEDS: Sennosides/Docusate Sodium TAB 2 TAB PO (22:04)
[2019-12-03] MEDS: Docusate Sodium 100 MG CAP PO (22:04)
[2019-12-04 04:20] VITALS: BP 117/77; PULSE 76; RESP 17; TEMP 36.5; O2SAT 98
[2019-12-04] MEDS: ceFAZolin 1 GM/50 ML BAG IVPB (04:30)
[2019-12-04] MEDS: oxyCODONE 5 MG TAB PO ×2 (04:38→08:50)
[2019-12-04] MEDS: Normal Saline Flush 10 ML SYR IV (07:09)
[2019-12-04 07:26] VITALS: BP 123/66; PULSE 69; RESP 22; TEMP 37; O2SAT 94
[2019-12-04] MEDS: Celecoxib 200 MG CAP PO (07:29)
[2019-12-04] MEDS: Pantoprazole 40 MG TABCR PO (07:30)
[2019-12-04] MEDS: Acetaminophen 500 MG TAB 1000 MG PO (07:30)
[2019-12-04] MEDS: Gabapentin 300 MG CAP PO (07:30)
[2019-12-04] MEDS: hydroCHLOROthiazide 12.5 MG TAB 25 MG PO (07:36)
[2019-12-04] MEDS: Atorvastatin 10 MG TAB PO (07:37)
[2019-12-04] MEDS: Aspirin E.C. 325 MG TABEC PO (07:37)
--- NOTE | 2019-12-04 07:54 | W.PM.DS.N ---
Date of service: 12/04/19 Time of Service: 07:54 DS: Diagnosis Discharge Diagnosis (1) Primary osteoarthritis of right knee: Status: Acute Discharge Plan Disposition Patient Disposition: HOME Condition: Good Discharge Details Reason For Visit: R KNEE DJD Admit Date/Time: 12/03/19 05:51 Admit Provider: Cal Cortés Attending Provider: Cal Cortés Primary Care Provider: Alcides Estrada Hospital Course Hospital Course: Patient was admitted to the medical/surgical floor following the procedure. It was tolerated well without any notable medical, surgical, or anesthetic complications. Mobilization began postoperatively. The staples catheter was removed and voiding spontaneously. Vitals were stable. Physical therapy worked with the patient and was cleared for discharge home. No acute medical issues. Home Meds and New Rx's Prescriptions: New acetaminophen 500 mg tablet 1,000 mg PO Q8H PRN (Reason: pain) Qty: 90 RF: 3 pantoprazole 40 mg tablet,delayed release (DR/EC) 40 mg PO DAILY Qty: 30 RF: 0 oxycodone 5 mg tablet 5 mg PO Q4H Qty: 18 RF: 0 Continued aspirin 325 MG tablet 325 mg PO DAILY RF: 0 hydrochlorothiazide 12.5 MG capsule 25 mg PO DAILY RF: 0 atorvastatin 10 mg tablet 10 mg PO DAILY RF: 0 gabapentin 300 mg Capsule 300 mg PO BID RF: 0 sennosides-docusate sodium [Senna Laxative-Stool Softener] 8.6-50 mg Tablet 2 tab PO QHS PRNRF: 0 Changed ibuprofen 600 mg tablet 600 mg PO TID Qty: 90 RF: 3 Discontinued acetaminophen 500 mg capsule 1,000 mg PO Q8H PRN (Reason: pain) Qty: 90 RF: 2 Discharge Instructions Additional Instructions: Dr. Cortés?s Total Knee Discharge Instructions Activity: The most important activity is to walk. You should try to take short walks a few times a day. It is important that when resting you work on keeping the knee straight. Avoid putting a pillow behind the knee as this will encourage flexion. Work on range of motion exercises as provided by Physical Therapy. - Start outpatient physical therapy within 2 weeks. - You should wear the CECY hose on both legs for 2 weeks. Dressing: Keep the surgical dressing in place for at least one week. After the first week it may be removed and replace with light gauze and tape or nothing. It may get wet after 3 days but avoid soaking the dressing. If it gets wet, just lightly pat dry. Medications: - You should take Tylenol and anti-inflammatory Ibuprofen as your primary pain control medications - You have been prescribed a stronger pain medication Oxycodone for breakthrough pain, take as needed as prescribed. You may double up your night time dose if needed. - You have also been prescribed a stomach acid reduction agent Pantoprozole to help reduce stomach acid and reflux. - You should continue to take your Gabapentin twice a day as per previous. You may double up your night time dose for the first 1-2 weeks to assist with nerve pain and sleep. - You will be taking Aspirin 325mg daily (your home regimen) for DVT prevention unless instructed otherwise. - If you have constipation you should take Colace or Miralax (both [id number]). It takes most people 3-4 days to have a bowel movement. Follow-up: 2 weeks Referrals: Cal Cortés MD [ [facility] STAFF PHYSICIAN] - [facility] [Provider Group] (s/p R TKA. Start within 2 weeks.) Activity:: Activity as Tolerated Equipment/Supplies:: No Equipment Needed Diet:: As Tolerated Discharge Orders Discharge Orders: Discharge Order (Routine); Ordered 12/04/19 Ordered By: Cal Cortés DS: Summary Status at Discharge Functional status at discharge: uses cane/walker Overall status at discharge: patient is progressing back to baseline Mental Status: mental status grossly normal Speech and Movement: speech and movement normal Mood: congruent mood Affect: normal affect Exam Psych Mental Status: mental status grossly normal Speech and Movement: speech and movement normal Mood: congruent mood Affect: normal affect DS: Data Vitals/I&O Vitals and I&O: Vital Signs Temperature 37 C 12/04/19 07:26 Temperature Source Tympanic 12/04/19 07:26 Pulse 69 12/04/19 07:26 Pulse Rhythm Regular 12/04/19 07:20 Respiratory Rate 22 12/04/19 07:26 Respiratory Effort Non-Labored 12/04/19 07:20 Respiratory Depth Normal 12/04/19 07:20 Respiratory Pattern Normal 12/04/19 07:20 Blood Pressure 123/66 12/04/19 07:26 Pulse Oximetry 94 L 12/04/19 07:26 Respiratory End-tidal CO2 34 12/03/19 11:40 Oxygen Delivery Method Room Air 12/04/19 07:26 Oxygen Flow Rate 0 12/04/19 07:26 Pain Level 0 12/04/19 07:30 Comment 12/03/19 19:26 Intake & Output 12/03/19 12/03/19 12/04/19 11:59 23:59 11:59 Intake Total 1520 / 2488.000 968.000 / 2488.000 1305.333 / 1305.333 Output Total 500 / 1800 1300 / 1800 750 / 750 Balance 1020 / 688.000 -332.000 / 688.000 555.333 / 555.333 Weight 96.8 kg Intake: IV 1520 / 2248.000 728.000 / 2248.000 1305.333 / 1305.333 Oral 240 / 240 Output: Urine 200 / 1500 1300 / 1500 750 / 750 Estimated Blood Loss 300 / 300 Other: Urine Color Yellow Yellow Yellow Urine Appearance Clear Clear Clear Urine Odor None Comment checked for patency and to make sure catheter was not applying pressure to surrounding tissue Emesis Description None Voiding Methods Urinal Urinal PFSH Medical History Cough Dysphonia HTN (hypertension) Hx of transient ischemic attack (TIA) 2011 Hyperlipidemia Kidney stone Latex allergy Lower back pain Osteoarthritis Pharyngitis Radicular pain Rotator cuff (capsule) sprain Shingles (Acute) rt hand (healing pustules) and rt arm pain up to rt shoulder and rt side of his back per patient. 05/02 SOB (shortness of breath) Surgical History Colonoscopy - IV Sedation DISCECTOMY pt. 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
--- NOTE | 2019-12-04 10:04 | PT.INDS ---
Date of service: 12/04/19 Time of Service: 09:47 PT Notes Visit Reasons: R KNEE DJD Inpatient Physical Therapy Discharge Summary Dates: 12/04/2019 Dates of Service: 12/03/2019 through 12/04/2019 Referring Doctor: Cal Cortés M.D. PT Orders: PT CONSULT: s/p ortho surgery Precautions: Fall. Standard. Activity as tolerated. Patient Profile/Admitting Diagnosis: Pt is a 79-year-old male with history of primary unilateral osteoarthritis status post right total knee arthroplasty on post-operative day 1. PMHX: Medical History Cough Dysphonia HTN (hypertension) Hx of transient ischemic attack (TIA) 2011 Hyperlipidemia Kidney stone Latex allergy Lower back pain Osteoarthritis Pharyngitis Radicular pain Rotator cuff (capsule) sprain Shingles (Acute) rt hand (healing pustules) and rt arm pain up to rt shoulder and rt side of his back per patient. 05/02 SOB (shortness of breath) Surgical History (Updated 12/03/19 @ 06:12 by Millie Estrada) Colonoscopy - IV Sedation DISCECTOMY pt. 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 Notes there are no stairs to enter the house, but one step to enter the bedroom and two steps to enter the kitchen. Equipment Owned/DME: front-wheeled walker. Subjective: Patient continues to report pain in the right popliteal area at 5/10 that decreased to 3/10 with ambulation activity today. He states he did not sleep well last night. Patient states that he plans to drive down to [place] in 2 weeks with his . Objective: General Observation: Patient is pleasant and is highly motivated to perform stair negotiation activity this morning. Mental Status: alert an oriented x4 Pain: 5/10 pain in right hip, 3/10 after ambulation activity ROM: Right Upper Extremity: Shoulder Flexion WFL. Shoulder abduction WFL. Elbow flexion WFL. Wrist flexion WFL. Opening and closing of hand WFL. Left Upper Extremity: Shoulder Flexion WFL. Shoulder abduction WFL. Elbow flexion WFL. Wrist flexion WFL. Opening and closing of hand WFL. Right Lower Extremity: Hip flexion WFL. Hip abduction WFL. Knee flexion 120 degrees. Knee extension 0 degrees. Ankle dorsiflexion WFL. Ankle plantarflexion WFL. Left Lower Extremity: Hip flexion WFL. Hip abduction WFL. Knee flexion WFL. Ankle dorsiflexion WFL. Ankle plantarflexion WFL. Strength: Right Upper Extremity: Shoulder flexors 5/5. Shoulder abductors 5/5. Elbow flexors 5/5. Elbow extensors 5/5. Customer Account Technician strong. Left Upper Extremity: Shoulder flexors 5/5. Shoulder abductors 5/5. Elbow flexors 5/5. Elbow extensors 5/5. Customer Account Technician strong. Right Lower Extremity: Hip flexors 4+/5. Hip abductors 4+/5. Knee flexors 3-/5. Knee extensors 4-/5. Ankle dorsiflexors 5/5. Ankle plantarflexors 5/5. Left Lower Extremity: Hip flexors 5/5. Hip abductors 5/5. Knee flexors 5/5. Knee extensors 5/5. Ankle dorsiflexors 5/5. Ankle plantarflexors 5/5. Sensation: Intact as to pain and pressure on bilateral lower extremities. Bed Mobility/Transfers: Rolling independent Supine to sit independent Sit to supine independent Sit to stand independent Stand to sit independent Bed to chair independent Chair to bed independent Gait: Pt was able to ambulate 850 feet, WBAT on the right LE, using a front-wheeled walker independently. Reciprocal step through gait pattern. Pain reported decreased to 3/10 after ambulation activity. Balance: Static Sitting: Normal Dynamic Sitting: Normal Static Standing: Good Dynamic Standing: Fair Assessment: Pt is a 79-year-old male with history of primary osteoarthritis presenting on status post right total knee arthroplasty on post-operative day 1. He presents to physical therapy with impairment level findings and functional limitations as listed below. Pt demonstrates good mobility with ambulation when using a front-wheeled walker. Patient demonstrated significant functional mobility improvement for this episode of care. Patient presented with clinical signs and symptoms consistent with current/admitting diagnoses that have resulted to mobility limitations, gait instability, and generalized weakness as demonstrated by the following impairment level findings: 1. Decreased strength to R knee major muscle groups 2. Impaired standing balance 3. Impaired activity tolerance 4. Limitation of joint range of motion in right knee Impairments continue to contribute to the following functional limitations: 1. Inability to safely ambulate without assistive device and physical assistance Goals: Goals X1 week 1. Supine-Sit independent MET 2. Sit-Supine independent MET 3. Sit-Stand independent MET 4. Stand-Sit independent MET 5. Bed-Chair independent MET 6. Chair-Bed independent MET 7. Independent gait on level surface with use of least restrictive device for at least 300 feet without report of pain nor dyspnea MET 8. Independent stair negotiation while holding onto bilateral rails for at least 4 steps without report of pain nor dyspnea MET 9. Independent with home exercise program MET 10. Good static and dynamic standing balance/tolerance MET DISCHARGE RECOMMENDATIONS: Discharge to home when medically cleared. Recommend the use of a front-wheeled walker for ambulation. TREATMENT CODE/TIME: 01903 x 13 minutes beginning at 9:47 AM. Thank you very much for this referral. Janell Holcomb PT, DPT, CLT [facility] [place], [place]
== END 2019-12-04 10:30 | disposition home or self-care (01) | DRG 470 ==
LOC: PDS 07:25 → MS 10:49
PROVIDERS: Admitting Provider Student in an Organized Health Care Education/Training Program; PCP Internal Medicine; Visit Provider Student in an Organized Health Care Education/Training Program
PROC: 0SRC0J9 Replacement of Right Knee Joint with Synthetic Substitute, Cemented, Open Approach (ICD-10-PCS; CPT 27447; principal; 2019-12-03 07:30)
DX: M17.11 Unilateral primary osteoarthritis, right knee (principal); M25.561 Pain in right knee; Z96.651 Presence of right artificial knee joint; I10 Essential (primary) hypertension; E78.5 Hyperlipidemia, unspecified
CPT/HCPCS: 27447; 76942; 97162; 97530; NC; J0690; J1100; J1885; J2001; J2250; J2405; J2704; J3010

== ENCOUNTER 2019-12-19 10:57 | Outpatient (CLI) | payer MEDICARE, OTHER, SELFPAY ==
--- NOTE | 2019-12-19 10:45 | DI.RAD_ITS ---
EXAM: XR KNEE RT 1V INDICATION: 1ST POST OP. COMPARISON: DR Amin. Long Legs from 12/04/2018 XR STANDING ALIGNMENT from 12/19/2019 TECHNIQUE: 2D digital imaging was performed. FINDINGS: A right total knee prosthesis is seen. There are surrounding bony lucencies. Vascular calcification s are seen. There also bilateral hip prostheses and a left knee prosthesis. Degenerative changes ar e seen at the medial ankle joints. IMPRESSION: Bilateral hip and bilateral knee prostheses. DATA REPOSITORY: RADIATION DOSE DELIVERED:
== END 2019-12-19 11:17 ==
PROVIDERS: PCP Internal Medicine; Referring Provider Internal Medicine; Visit Provider Student in an Organized Health Care Education/Training Program
DX: Z96.653 Presence of artificial knee joint, bilateral (principal); Z96.643 Presence of artificial hip joint, bilateral; M19.071 Primary osteoarthritis, right ankle and foot; M19.072 Primary osteoarthritis, left ankle and foot; R06.02 Shortness of breath; R53.83 Other fatigue; Z47.1 Aftercare following joint replacement surgery
CPT/HCPCS: 71275; 80048; 80053; 85027; 73560; 77073; J3490

== ENCOUNTER 2019-12-19 11:45 | Outpatient (CLI) | payer MEDICARE, OTHER, SELFPAY ==
[2019-12-19 12:09] LABS: HGB 11.8 g/dL (13.5-17.5); Mean Corp. HGB Concentration 32.8 g/dL (32.0-36.0); Mean Corpuscular Hemoglobin 32.3 pg (27.0-33.0); Mean Corpuscular Volume 98.6 fL (80-95); Mean Platelet Volume 8.8 fL (8.0-11.0); Platelet Count 311 x1000/uL (130-400); RBC 3.65 m/cumm (4.50-6.00); RBC Distribution Width 14.4 % (11.8-14.1); White Blood Cell Count 6.05 k/cumm (4.4-10.8)
[2019-12-19 12:29] LABS: ALT 14 U/L (16-63); AST 19 U/L (15-37); Albumin 3.8 g/dL (3.4-5.0); Alkaline Phosphatase 69 U/L (46-116); Anion Gap 9.1 mmol/L (3-11); BUN 16 mg/dL (7-18); Bilirubin, Total 0.7 mg/dL (0.2-1.0); CO2 28.9 mmol/L (21.0-32.0); CREATININE 1.35 mg/dL (0.70-1.30); Calcium 8.8 mg/dL (8.5-10.1); Chloride 102 mmol/L (98-107); Estimated GFR 50.98 (mL/min/1.73m2); Glucose 116 mg/dL (74-106); Potassium 3.8 mmol/L (3.5-5.1); Sodium 140 mmol/L (136-145); Total Protein 7.2 g/dL (6.4-8.2)
== END 2019-12-19 12:05 ==
PROVIDERS: PCP Internal Medicine; Visit Provider Student in an Organized Health Care Education/Training Program
DX: R06.02 Shortness of breath (principal); R53.83 Other fatigue; Z96.651 Presence of right artificial knee joint; Z47.1 Aftercare following joint replacement surgery
CPT/HCPCS: 80053; 85027

== ENCOUNTER 2019-12-19 13:48 | Outpatient (CLI) | payer MEDICARE, OTHER, SELFPAY ==
[2019-12-19] MEDS: Omnipaque 350 MG/ML 100 ML BTL IJ (12:39)
--- NOTE | 2019-12-19 13:30 | DI.CT_ITS ---
EXAM: CT CHEST PE CTA CLINICAL HISTORY: shortness of breath, recent TKA R06.02 TECHNIQUE: Post IV contrast according to PE protocol Axial CT angiography was performed with multi-slice acquisition and multi-planar and/or 3D reconstruc tions. COMPARISON: CT thorax abdomen CTA from 06/16/2019 FINDINGS: There is no evidence of pulmonary emboli or aortic dissection. The ascending aorta is dilated, brigitte uring 4.5 x 4.2 cm. The lungs are suboptimally evaluated due to motion. Dependent changes are seen posteriorly. No focal infiltrate, pleural or pericardial effusion is seen. There is no evidence of pneumothorax or thoracic compression fracture. The visualized portions of the upper abdomen are unre markable. IMPRESSION: No evidence of pulmonary emboli or other acute abnormality.
--- NOTE | 2019-12-19 13:33 | DI.VRAD_ITS ---
PROCEDURE INFORMATION: Exam: CT Angiography Chest With Contrast Exam date and time: 12/19/2019 12:48 PM Age: 79 years old Clinical indication: Other: Short of breath, recent tka TECHNIQUE: Imaging protocol: Computed tomographic angiography of the chest with intravenous contrast. 3D rendering: MIP and/or 3D reconstructed images were created by the technologist. Radiation optimization: All CT scans at this facility use at least one of these dose optimization techniques: automated exposure control; mA and/or kV adjustment per patient size (includes targeted exams where dose is matched to clinical indication); or iterative reconstruction. Contrast material: OMNIPAQUE; Contrast volume: 100 ml; Contrast route: RT A?C; COMPARISON: CT thorax abdomen CTA 06/16/2019 1:19 PM FINDINGS: Pulmonary arteries: No evidence of pulmonary embolus to the segmental level. Aorta: No dissection of the aorta. Unruptured aneurysm of the ascending aorta 4.5 x 4.2 cm. Lungs: Mild opacities in the lower lobes may represent minimal atelectasis or pneumonia. Pleural space: Unremarkable. No pneumothorax. No pleural effusion. Heart: Unremarkable. No cardiomegaly. No pericardial effusion. Lymph nodes: Unremarkable. No enlarged lymph nodes. Bones/joints: Unremarkable. No acute fracture. Soft tissues: Unremarkable. IMPRESSION: 1. No evidence of pulmonary embolus to the segmental level. 2. No dissection of the aorta. 3. Unruptured aneurysm of the ascending aorta 4.5 x 4.2 cm. 4. Mild opacities in the lower lobes may represent minimal atelectasis or pneumonia Dictated and Authenticated by: Lauryn Mccabe MD. Ordering:IRENE Mccall MD
== END 2019-12-19 14:08 ==
PROVIDERS: PCP Internal Medicine; Visit Provider Student in an Organized Health Care Education/Training Program
DX: R06.02 Shortness of breath (principal); Z96.651 Presence of right artificial knee joint; I77.819 Aortic ectasia, unspecified site
CPT/HCPCS: 71275; J3490

== ENCOUNTER → 2020-01-12 10:57 | Outpatient (BNVA) | payer MEDICARE, OTHER, SELFPAY | PROVIDERS: PCP Internal Medicine; Visit Provider Student in an Organized Health Care Education/Training Program | DX: R06.02 Shortness of breath; Z47.1 Aftercare following joint replacement surgery; Z96.651 Presence of right artificial knee joint; I10 Essential (primary) hypertension ==

== ENCOUNTER 2020-02-04 08:48 | Outpatient (REF) | payer MEDICARE, OTHER, SELFPAY ==
[2020-02-04 20:03] LABS: Calculated LDL 91 mg/dL (<100); Cholesterol 151 mg/dL (<200); HDL Cholesterol 41 mg/dL (40-60); Triglyceride 98 mg/dL (<150)
== END 2020-02-04 09:08 ==
LOC: NCHCN 08:48
PROVIDERS: PCP Internal Medicine; Visit Provider Internal Medicine
DX: E78.5 Hyperlipidemia, unspecified (principal)
CPT/HCPCS: 80061

== ENCOUNTER 2020-04-12 12:24 | Outpatient (REF) | payer MEDICARE, OTHER, SELFPAY ==
[2020-04-12 21:41] LABS: Calculated LDL 84 mg/dL (<100); Cholesterol 147 mg/dL (<200); HDL Cholesterol 41 mg/dL (40-60); Triglyceride 110 mg/dL (<150)
== END 2020-04-12 12:44 ==
LOC: NCHCN 12:24
PROVIDERS: PCP Internal Medicine; Visit Provider Internal Medicine
DX: E78.5 Hyperlipidemia, unspecified (principal)
CPT/HCPCS: 80061

== ENCOUNTER 2020-05-17 16:18 | Outpatient (CLI) | payer MEDICARE, OTHER, SELFPAY ==
--- NOTE | 2020-05-17 | DI.RAD_ITS ---
EXAM: XR SHOULDER LT COMPLETE 2+V CLINICAL HISTORY: LT SHOULDER PAIN, M25.512 TECHNIQUE: COMPARISON: No exams were available for comparison FINDINGS: Five views were obtained. There is narrowing of the cartilaginous joint space of the glenohumeral juan int. There are moderate hypertrophic degenerative changes of glenohumeral joint and acromioclavicula r joint. On the AP views there is a faint lucency projected over the subglenoid scapula, scapular fr acture not absolutely excluded although not confirmed on other views. Additional evaluation with CT suggested to rule out scapular fracture if clinically appropriate. IMPRESSION:
== END 2020-05-17 16:38 ==
PROVIDERS: PCP Internal Medicine; Visit Provider Internal Medicine
DX: M25.512 Pain in left shoulder (principal); M19.012 Primary osteoarthritis, left shoulder
CPT/HCPCS: 73030

== ENCOUNTER 2020-05-19 03:00 | Outpatient (CLI) | payer MEDICARE, OTHER, SELFPAY ==
--- NOTE | 2020-05-19 | DI.CT_ITS ---
EXAM: CT UPPER EXTREMITY LT WO CLINICAL HISTORY: H/O LT SHOULDER FX, Z87.81, LT SHOULDER PAIN, M25.512, ? SCAPULAR FX BY TECHNIQUE: COMPARISON: CR XR SHOULDER LT COMPLETE 2+V from 05/17/2020 FINDINGS: CT examination of the shoulder was performed utilizing multi slice acquisition and multiplanar recons truction. Visualized left lung is clear. No mediastinal abnormality seen in visualized portions of the mediastinum. Recent radiograph showed question lucency of body of the scapula and on today's CT this is confirmed as a mildly displaced mildly comminuted fracture of the body of the scapula. No glenoid fracture or humeral head fracture seen. There are severe degenerative changes of the glenohumeral joint with marked loss of cartilaginous liana nt space and subchondral sclerosis and widening of the glenoid. The humeral head is subluxed superio rly consistent with a chronic supraspinatus tear. There appears to be significant supraspinatus atro phy with fatty replacement of up to 50 percent of the supraspinatus muscle. There also appears to be significant fatty replacement of subscapularis. There is a probable joint effusion. Moderate hyper trophic degenerative changes of AC joint noted as well. IMPRESSION: Mildly displaced mildly comminuted scapular body fracture is confirmed. 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
== END 2020-05-19 03:20 ==
PROVIDERS: PCP Internal Medicine; Visit Provider Internal Medicine
DX: S42.112A Displaced fracture of body of scapula, left shoulder, initial encounter for closed fracture (principal); M75.102 Unspecified rotator cuff tear or rupture of left shoulder, not specified as traumatic; M19.012 Primary osteoarthritis, left shoulder; Z87.81 Personal history of (healed) traumatic fracture
CPT/HCPCS: 73200

== ENCOUNTER → 2020-06-03 11:44 | Outpatient (BNVA) | payer MEDICARE, OTHER, SELFPAY | PROVIDERS: PCP Internal Medicine; Referring Provider Family Medicine; Visit Provider Student in an Organized Health Care Education/Training Program | DX: S42.115D Nondisplaced fracture of body of scapula, left shoulder, subsequent encounter for fracture with routine healing (principal); W01.0XXD Fall on same level from slipping, tripping and stumbling without subsequent striking against object, subsequent encounter; M25.512 Pain in left shoulder; M75.82 Other shoulder lesions, left shoulder; I10 Essential (primary) hypertension | CPT/HCPCS: 20610; 99214; J1040 ==

== ENCOUNTER 2020-06-10 08:31 | Outpatient (REF) | payer MEDICARE, OTHER, SELFPAY ==
[2020-06-10 21:00] LABS: ALT 25 U/L (16-63); AST 18 U/L (15-37); Anion Gap 5.2 mmol/L (3-11); BUN 14 mg/dL (7-18); CO2 31.8 mmol/L (21.0-32.0); CREATININE 0.96 mg/dL (0.70-1.30); Calcium 9.7 mg/dL (8.5-10.1); Calculated LDL 71 mg/dL (<100); Chloride 104 mmol/L (98-107); Cholesterol 141 mg/dL (<200); Glucose 80 mg/dL (74-106); HDL Cholesterol 50 mg/dL (40-60); Potassium 4.2 mmol/L (3.5-5.1); Sodium 141 mmol/L (136-145); Triglyceride 104 mg/dL (<150)
== END 2020-06-10 08:51 ==
LOC: NCHCN 08:31
PROVIDERS: PCP Internal Medicine; Visit Provider Internal Medicine
DX: E78.5 Hyperlipidemia, unspecified (principal); I10 Essential (primary) hypertension; N18.3 Chronic kidney disease, stage 3 (moderate)
CPT/HCPCS: 80048; 80061; 84450; 84460

== ENCOUNTER → 2020-07-12 09:05 | Outpatient (BNVA) | payer MEDICARE, OTHER, SELFPAY | PROVIDERS: PCP Internal Medicine; Referring Provider Internal Medicine; Visit Provider Student in an Organized Health Care Education/Training Program | DX: M25.512 Pain in left shoulder (principal); S42.115D Nondisplaced fracture of body of scapula, left shoulder, subsequent encounter for fracture with routine healing; X58.XXXD Exposure to other specified factors, subsequent encounter; M75.82 Other shoulder lesions, left shoulder; I10 Essential (primary) hypertension | CPT/HCPCS: 99213 ==

== ENCOUNTER 2020-08-19 10:20 | Outpatient (CLI) | payer MEDICARE, OTHER, SELFPAY ==
--- NOTE | 2020-08-19 08:15 | DI.RAD_ITS ---
EXAM: XR SHOULDER RT COMPLETE 2+V CLINICAL HISTORY: R shoulder injury. TECHNIQUE: 2D digital imaging was performed. COMPARISON: CR XR SHOULDER LT COMPLETE 2+V from 05/17/[address] UPPER EXTREMITY LT WO from 05/19/2020 FINDINGS: Degenerative changes are seen at the acromioclavicular joint and the glenohumeral joint. No acute fr acture or dislocation is present. The bones are normally mineralized. The soft tissues are unremark able. IMPRESSION: No acute fracture or dislocation. DATA REPOSITORY: RADIATION DOSE DELIVERED:
== END 2020-08-19 10:40 ==
PROVIDERS: PCP Internal Medicine; Referring Provider Internal Medicine; Visit Provider Student in an Organized Health Care Education/Training Program
DX: M19.011 Primary osteoarthritis, right shoulder (principal); M25.511 Pain in right shoulder; S49.91XA Unspecified injury of right shoulder and upper arm, initial encounter; X50.0XXA Overexertion from strenuous movement or load, initial encounter; I10 Essential (primary) hypertension
CPT/HCPCS: 99214; 73030

== ENCOUNTER 2020-08-26 01:23 | Outpatient (CLI) | payer MEDICARE, OTHER, SELFPAY ==
--- NOTE | 2020-08-26 07:00 | DI.MRI_ITS ---
EXAM: MR UPPER JOINT RT WO CLINICAL HISTORY: RIGHT SHOULDER INJURY,TRAUMATIC TEAR RT ROTATOR CUFF, PAIN,S46.011A. TECHNIQUE: Multiplanar multisequence MRI was performed. COMPARISON: CR XR SHOULDER RT COMPLETE 2+V from 08/19/2020 FINDINGS: BONES: There is no fracture or contusion pattern. Mild edema seen in the greater tuberosity. JOINTS: Mild degenerative changes are seen at the acromioclavicular joint. There is superior subluxa tion of the humeral head consistent with rotator cuff tear. TENDONS: Supraspinatus: There is a complete tear of the supraspinatus tendon with retraction almost to the gle nohumeral joint. Infraspinatus: There is a large tear of the infraspinatus tendon with retraction almost to the glenoh umeral joint. Subscapularis: There is increased signal and thickening of the subscapularis tendon consistent with a partial tear. Teres [place]: Unremarkable. Biceps and [place]: There is medial subluxation of the biceps tendon. Biceps tendon appears thickened which may represent degeneration or partial tear. MUSCLES: There is moderate fatty atrophy of the supraspinatus tendon and mild fatty atrophy of the in fraspinatus tendon. GLENOID LABRUM: Unremarkable on this noncontrast examination. SOFT TISSUES: There is edema seen in the soft tissues around the shoulder. LIGAMENTS: The coracoclavicular ligament is intact. OTHER: There is fluid seen in the subacromial subdeltoid bursa consistent with a rotator cuff tear. IMPRESSION: 1. Complete tear with retraction of the supraspinatus tendon and large retracted tear of the infraspi natus tendon. 2. Partial tear of the subscapularis tendon. Medial displacement and question of partial tear involv ing the biceps tendon. 3. Superior subluxation of the humeral head consistent with a large rotator cuff tear. 4. Atrophy involving the supraspinatus and infraspinatus muscles as described. 5. Degenerative changes of the acromioclavicular joint and the greater tuberosity. 6. Fluid seen in the subacromial subdeltoid bursa consistent with a rotator cuff tear. DATA REPOSITORY:
== END 2020-08-26 01:43 ==
PROVIDERS: PCP Internal Medicine; Visit Provider Student in an Organized Health Care Education/Training Program
DX: S46.011A Strain of muscle(s) and tendon(s) of the rotator cuff of right shoulder, initial encounter (principal); M19.011 Primary osteoarthritis, right shoulder
CPT/HCPCS: 73221

== ENCOUNTER 2020-09-03 09:30 | Outpatient (CLI) | payer MEDICARE, OTHER, SELFPAY | END 2020-09-03 09:50 | PROVIDERS: PCP Internal Medicine; Visit Provider Student in an Organized Health Care Education/Training Program | DX: S46.011D Strain of muscle(s) and tendon(s) of the rotator cuff of right shoulder, subsequent encounter (principal); X58.XXXD Exposure to other specified factors, subsequent encounter; I10 Essential (primary) hypertension | CPT/HCPCS: 20610; J1040 ==

== ENCOUNTER → 2020-10-22 07:56 | Outpatient (BNVA) | payer MEDICARE, OTHER, SELFPAY | PROVIDERS: PCP Internal Medicine; Referring Provider Internal Medicine; Visit Provider Student in an Organized Health Care Education/Training Program | DX: R69 Illness, unspecified (principal) ==

== ENCOUNTER 2020-12-15 01:31 | Outpatient (CLI) | payer MEDICARE, OTHER, SELFPAY ==
[2020-12-15 12:25] LABS: Anion Gap 6.2 mmol/L (3-11); BUN 13 mg/dL (7-18); CO2 31.8 mmol/L (21.0-32.0); Calcium 9.4 mg/dL (8.5-10.1); Chloride 102 mmol/L (98-107); Glucose 99 mg/dL (74-106); Potassium 3.6 mmol/L (3.5-5.1); Sodium 140 mmol/L (136-145)
--- NOTE | 2020-12-15 12:46 | DI.CT_ITS ---
EXAM: CT THORAX CTA CLINICAL HISTORY: F/U ASCENDING AORTA DILATATION, I77.810. TECHNIQUE: Imaging Protocol: Axial CT angiography was performed with multi-slice acquisition and mu lti-planar and/or 3D reconstructions. CONTRAST MATERIAL: Intravenous: Omnipaque 350 Contrast volume:100 mL COMPARISON: CT CT CHEST PE CTA from 12/19/2019 FINDINGS: Tracheobronchial tree: Patent where visualized. Pulmonary parenchyma: No consolidation or dominant measurable mass. Parenchymal scarring is seen in t he lungs. Pulmonary Arteries: No evidence of filling defect to suggest pulmonary emboli. Mediastinum and Rachel: No dominant adenopathy or fluid collection. Visualized thyroid gland: Unremarkable. Pleura: No effusion or pneumothorax. Heart: The heart is not dilated. Moderate coronary artery calcification. No pericardial effusion. Aorta: There is stable dilatation of the ascending aorta measuring 4.6 x 4.2 cm. There is atheroscle rosis present. No evidence of dissection. Upper abdomen: Unremarkable. Soft tissues: Unremarkable. Bones: Degenerative changes are seen in the spine. IMPRESSION: Stable ascending aortic dilatation at 4.6 x 4.2 cm. RADIATION DOSE DELIVERED: 499.47mGy.cm Total DLP 499.47mGy.cm Total DLP DATA REPOSITORY: All CT scans at this facility are submitted to the National Radiology Data Registry (NRDR) Dose Index Registry (DIR) with the [employer] ([employer]). RADIATION OPTIMIZATION: All CT scans at this facility use at least one of these dose optimization te chniques: automated exposure control; mA and/or kV adjustment per patient size (includes targeted exa ms where dose is matched to clinical indication); or iterative reconstruction.
[2020-12-15] MEDS: Normal Saline - Diluent 50 ML VIAL IV (13:13)
== END 2020-12-15 01:51 ==
PROVIDERS: PCP Internal Medicine; Visit Provider Internal Medicine
DX: I77.810 Thoracic aortic ectasia (principal)
CPT/HCPCS: 71275; 80048

== ENCOUNTER 2021-04-07 10:25 | Outpatient (CLI) | payer MEDICARE, OTHER, SELFPAY ==
--- NOTE | 2021-04-07 09:30 | DI.RAD_ITS ---
Exam(s) XR HIP LT COMPLETE AP PELVIS EXAM: XR HIP LT COMPLETE AP PELVIS CLINICAL HISTORY: left hip pain. TECHNIQUE: 2D digital imaging was performed. COMPARISON: CR XR HIP RT COMPLETE AP PELVIS from 08/07/2019 FINDINGS: Bilateral hip prostheses are again noted. These appear stable position alignment. No fracture or lo osening. However, on the AP view there is a thin metallic pin like foreign body projected over the l ateral aspect of the greater trochanter of the right hip, not previously present. Unfortunately most of the views are of the opposite-left hip. Cannot exclude the possibly this is a foreign body in th e right hip and therefore additional views of the right hip are recommended. IMPRESSION: DATA REPOSITORY: RADIATION DOSE DELIVERED:
== END 2021-04-07 10:26 | disposition home or self-care (01) ==
LOC: DIORS 10:25
PROVIDERS: PCP Internal Medicine; Referring Provider Internal Medicine; Visit Provider Student in an Organized Health Care Education/Training Program
DX: M25.552 Pain in left hip (principal)
CPT/HCPCS: 99213; 73502

== ENCOUNTER 2021-04-08 15:30 | Emergency (ER) | payer MEDICARE, OTHER, SELFPAY ==
[2021-04-08 15:35] VITALS: BP 161/106; PULSE 94; RESP 20; TEMP 37.2; O2SAT 95
--- NOTE | 2021-04-08 15:45 | DI.CT_ITS ---
Exam(s) CT ABDOMEN PELVIS W EXAM: CT ABDOMEN PELVIS W CLINICAL HISTORY: left lower flank/hip pain. TECHNIQUE: Imaging Protocol: Axial computed tomography images with coronal and sagittal reformatted images were created and reviewed CONTRAST MATERIAL: Intravenous: Omnipaque 100cc Oral: None COMPARISON: CT CT THORAX CTA from 12/15/2020 FINDINGS: VISUALIZED LUNG BASES: No nodules nor pleural effusions evident. Benign-appearing increased markings are noted in the posterior basal segment right lower lobe right lung base. ABDOMEN: There is no ascites. LIVER: There are no focal hepatic lesions evident . GALLBLADDER/BILIARY: Gallbladder slightly distended but no gallstones seen. No gallbladder wall hu a or pericholecystic fluid. CBD is not dilated. PANCREAS: No evidence of pancreatic mass nor dilatation of the pancreatic duct. SPLEEN: Spleen size upper normal. Calcified granulomas are again noted in the spleen. Splenic and p ortal veins are patent. ADRENALS: There are no significant adrenal masses. KIDNEYS:There are 3 nonobstructive calculi in the lower pole calices of the right kidney. Largest of these measures approximately 5 millimeters. No other findings in the right kidney. A small exophyt ic cyst seen off the lateral cortex of the left kidney which measures 8 x 9 millimeters. No calculi seen in the left kidney. No hydronephrosis nor hydroureter. Urinary bladder is somewhat obscured by beam hardening artifact from bilateral hip prostheses. ABDOMINAL AORTA: Calcified. Maximum diameter 2.8 cm. Mild uniform arterial megaly of the iliac maribell ap is noted. Both common iliac arteries exhibit 1.5 cm diameters. LYMPH NODES:There is no retroperitineal nor paraaortic adenopathy. ABDOMINAL WALL: Small anterior abdominal wall umbilical fat containing hernia. There are no inguinal hernias. GI: There is no evidence of bowel obstruction, free air, nor abscess. PELVIS: GI: No evidence of appendicitis.There are few diverticuli in the sigmoid. There is no obvious acute diverticulitis. There is abundant fecal material in the colon. LYMPH NODES: There is no intrapelvic nor inguinal adenopathy. REPRODUCTIVE: Prostate gland is not enlarged. URINARY BLADDER: Somewhat obscured by beam hardening artifact from bilateral hip prostheses. Not ove rly distended. OSSEOUS: There are bilateral hip prostheses. No significant osseous lesions. IMPRESSION: 1. Abundant fecal material colon. No bowel obstruction. No free air. No abscess. 2. There are 3 nonobstructive calculi in the lower pole of the right kidney. There is a 9 millimeter cyst benign cyst in the left kidney. No calculi in left kidney. No hydronephrosis on either side. 3. Sigmoid diverticulosis. No obvious acute diverticulitis. No free fluid in the pelvis. 4. There are bilateral hip prostheses. RADIATION DOSE DELIVERED: 839.97mGy.cm Total DLP DATA REPOSITORY: All CT scans at this facility are submitted to the National Radiology Data Registry (NRDR) Dose Index Registry (DIR) with the [employer] (ACR). RADIATION OPTIMIZATION: All CT scans at this facility use at least one of these dose optimization te chniques: automated exposure control; mA and/or kV adjustment per patient size (includes targeted exa ms where dose is matched to clinical indication); or iterative reconstruction.
--- NOTE | 2021-04-08 15:46 | ED.GENADUL_ITS ---
Discharge Plan Disposition Patient Disposition: HOME Condition: Stable Discharge Details Clinical Impression: Hip pain, left, Left flank pain, Constipation Primary Care Provider: Alcides Estrada ED Provider: Lance Joseph Home Meds and New Rx's Prescriptions: Continued ibuprofen 600 mg tablet 600 mg PO TID Qty: 90 RF: 3 aspirin 325 MG tablet 325 mg PO DAILY RF: 0 hydrochlorothiazide 12.5 MG capsule 25 mg PO DAILY RF: 0 atorvastatin 10 mg tablet 20 mg PO DAILY RF: 0 tramadol 50 mg tablet 50 mg PO Q6H PRN (Reason: pain) Qty: 12 RF: 0 acetaminophen 500 mg tablet 1,000 mg PO Q8H PRN (Reason: pain) Qty: 90 RF: 3 sennosides-docusate sodium [Senna Laxative-Stool Softener] 8.6-50 mg Tablet 2 tab PO QHS PRNRF: 0 Discharge Instructions Instructions: Constipation (ED) Additional Instructions: your blood work and cat scan did not show any concerning findings other than constipation follow up with Dr. Cortés especially if the pain in the hip continues you can take 1000mg tylenol and 600mg ibuprofen every 6 hours for pain as needed continue the stool softener sennosides-docusate and try using milk of magnesia if you feel more ill, have severe worsening pain or fevers return to the emergency department Medical Decision Making 80 yo male with hx of hld who comes in with left lower back/posterior hip pain since waking up Sunday with no known injuries, no trauma or falls. HE saw Dr. Cortés yesterday per his report and was told it was likely a tendon issue but the pain has continued today and he felt it deeper in the hip so was sent here for evaluation. HE denies fevers, vomit, and has been urinating normally. He has tenderness in the left lower lumbar region and left posterior hip without erythema, swelling or warmth and no swelling of the leg. No midline pain or saddle anesthesia. He can bear weight though with pain. Normal distal sensation. He has noted a week of constipation as well, no abdomen tenderness. Could be spasm or strain or bursitis, but will obtain labs and imaging to evaluate for possible abscess, kidney stone and less likely mass such as tumor. Has no findings on exam or history to suggest septic joint or osteomyelitis and exam findings are not consistent of spinal epidural abscess vs cauda equina patient's labs and imaging unremarkable other than constipation, no abscess or other concerning findings. He feels significantly better after toradol and has full range of motion of the hip. Suspect this could be bursitis vs muscle spasm or a tendon issue he will follow up with Dr. Cortés for. I will place him on a stool softener and milk of magnesia. All questions answered and he is stable for d/c, return precautions given Differential Diagnosis Differential Diagnosis: muscle spasm, constipation, bursitis, kidney stone, abscess Medical Records Medical records reviewed: Yes I reviewed the patient's medical records. Imaging Data Radiologic Study: Attestation: I personally reviewed and interpreted this imaging study as follows: Imaging: CT Scan Radiologist's impression: IMPRESSION: 1. Constipation. 2. Additional findings as discussed above. Lab Data Lab results reviewed: Yes I reviewed the patient's lab results. HPI General Mode of arrival: ambulatory . Date/Time Provider Initiated Documentation: 04/08/21 15:31 . Limitations to Documentation: no limitations . Information obtained by: patient . History of Present Illness 80 year old M presents to the emergency department with the chief complaint of left flank/hip pain, described as moderate, Patient reports no radiation. and it has been constant. No relieving factors improve symptom(s), No exacerbating factors reported . Patient notes other (constipation). Patient did receive the following treatments prior to arrival, none Related Data Home Medications Medication Instructions Recorded Confirmed aspirin 325 mg PO DAILY tab-cap 08/10/17 04/08/21 hydrochlorothiazide 25 mg PO DAILY tab-cap 08/10/17 04/08/21 sennosides-docusate sodium [Senna 2 tab PO QHS PRN 11/13/18 04/08/21 Laxative-Stool Softener] acetaminophen 1,000 mg PO Q8H PRN #90 tab 12/04/19 04/08/21 atorvastatin 10 mg tablet 20 mg PO DAILY tab 06/03/20 04/08/21 ibuprofen 600 mg tablet 600 mg PO TID #90 tab 06/03/20 04/08/21 tramadol 50 mg tablet 50 mg PO Q6H PRN #12 tab 04/05/21 04/08/21 Previous Rx's Medication Instructions Recorded acetaminophen 1,000 mg PO Q8H PRN #90 tab 12/04/19 ibuprofen 600 mg tablet 600 mg PO TID #90 tab 06/03/20 tramadol 50 mg tablet 50 mg PO Q6H PRN #12 tab 04/05/21 Allergies Allergy/AdvReac Type Severity Reaction Status Date / Time codeine AdvReac Mild Verified 04/08/21 15:38 enalapril AdvReac Mild Verified 04/08/21 15:38 latex AdvReac Mild rash Verified 04/08/21 15:38 lisinopril AdvReac Mild Verified 04/08/21 15:38 pravastatin AdvReac Mild Verified 04/08/21 15:38 General Stated Complaint: GenMedical DAVID: 3 Review of Systems All systems reviewed & are unremarkable except as noted in HPI and below Constitutional Constitutional: Denies chills, Denies fever(s) and Denies weakness Cardiovascular Cardiovascular: Denies chest pain and Denies dyspnea Respiratory Respiratory: Denies cough and Denies dyspnea Gastrointestinal Gastrointestinal: Denies nausea and Denies vomiting Musculoskeletal Musculoskeletal: Denies joint swelling Neurologic Neurologic: Denies weakness Psychiatric Psychiatric: Denies depression [facility] Medical History (Updated 04/08/21 @ 17:20 by Lance Joseph MD) Cough Dysphonia HTN (hypertension) Hx of transient ischemic attack (TIA) 2011 Hyperlipidemia Kidney stone Latex allergy Lower back pain Osteoarthritis Pharyngitis Radicular pain Rotator cuff (capsule) sprain Shingles rt hand (healing pustules) and rt arm pain up to rt shoulder and rt side of his back per patient. 05/02 SOB (shortness of breath) Surgical History Colonoscopy - IV Sedation DISCECTOMY pt. reports laminectomy Endoscopic Carpal Tunnel release B/L History of arthroscopy of left knee History of carpal tunnel release (10/29/19) ECTR for recurrent carpal tunnel Had undergone bilateral open ~2009 History of cataract surgery History of total left knee replacement (TKR) 11/19/2018 Lithotripsy Status post total right knee replacement (12/03/19) Total replacement of hip BILATERAL Family History Father Cirrhosis Social History Smoking/Tobacco Use Status: Never Smoking risk assessment performed?: Yes Alcohol Intake: never Drug use: Never Substance use type: does not use Current gender identity: male Do you feel safe at home: Yes Do you feel safe in your relationship?: Yes Exam Const General: no acute distress Orientation: alert HENMT Head: normal to inspection Ears: external ears normal General nose exam: external nose normal Mouth: moist mucous membranes Eyes General: appearance normal, both eyes and all related structures Neck Neck: normal visual inspection Resp Effort & Inspection: normal respiratory effort and able to speak in complete sentences Cardio Rate: regular rate Back/Spine/Pelvis Back: no CVA tenderness, No erythema, No warmth and No sacral edema Skin General skin exam: no rashes or lesions noted Neuro General: patient alert and patient oriented x3 Extrem General: normal to inspection Psych Mental Status: mental status grossly normal Course Vital Signs Vital signs: Vital Signs Temperature 37.2 C 04/08/21 15:35 Pulse 94 H 04/08/21 15:35 Respiratory Rate 20 04/08/21 15:35 Blood Pressure 161/106 H 04/08/21 15:35 Pulse Oximetry 95 04/08/21 15:35 Temperature 37.2 C 04/08/21 15:35 Temperature Source Skin 04/08/21 15:35 Pulse 94 H 04/08/21 15:35 Respiratory Rate 20 04/08/21 15:35 Respiratory Effort Non-Labored 04/08/21 15:40 Blood Pressure 161/106 H 04/08/21 15:35 Blood Pressure Position Sitting 04/08/21 15:35 Pulse Oximetry 95 04/08/21 15:35 Oxygen Delivery Method Room Air 04/08/21 15:35 Oxygen Flow Rate 0 04/08/21 15:35 Pain Level 10 04/08/21 15:35
[2021-04-08] MEDS: Ketorolac 15 MG/ML VIAL IVP (16:00)
[2021-04-08 16:10] LABS: Abs Immature Grans 0.02 10^3/uL (0.0-0.06); Absolute Basophil Count 0.03 10^3/uL (0.0-0.2); Absolute Eosinophil Count 0.05 10^3/uL (0.0-0.7); Absolute Lymphocyte Count 1.16 10^3/uL (1.2-3.4); Absolute Monocyte Count 0.79 10^3/uL (0.1-0.8); Absolute Neutrophil Count 6.87 10^3/uL (1.2-6.7); Basophils % 0.3; Eosinophils % 0.6; HCT 44.3 % (40.0-50.0); HGB 14.9 g/dL (13.5-17.5); Immature Grans % 0.2; MCH 32.9 pg (27.0-33.0); MCHC 33.6 % (32.0-36.0); MCV 97.8 fL (80-95); Monocytes % 8.9; Nucleated RBC 0 %; Platelet Count 160 10^3/uL (130-400); RBC 4.53 10^6/uL (4.36-5.78); RDW 13.5 % (11.8-14.1); RDW-SD 48.9 fL; WBC 8.92 10^3/uL (4.4-10.8)
[2021-04-08 16:24] LABS: ALT 22 U/L (16-63); AST 22 U/L (15-37); Albumin 4.2 g/dL (3.4-5.0); Alkaline Phosphatase 74 U/L (46-116); Anion Gap 7.4 mmol/L (3-11); BUN 15 mg/dL (7-18); Bilirubin, Total 1.2 mg/dL (0.2-1.0); CO2 30.6 mmol/L (21.0-32.0); Calcium 10.1 mg/dL (8.5-10.1); Chloride 102 mmol/L (98-107); Glucose 96 mg/dL (74-106); Lipase 50 U/L (73-393); Magnesium 1.7 mg/dL (1.8-2.4); Potassium 4.5 mmol/L (3.5-5.1); Sodium 140 mmol/L (136-145); Total Protein 8.1 g/dL (6.4-8.2)
[2021-04-08 16:35] LABS: Bilirubin Negative (Negative); Blood Negative (Negative); Clarity Clear (Clear); Glucose Negative (Negative); Ketones Negative (Negative); Leukocyte Esterase Negative (Negative); Nitrite Negative (Negative); pH 7.5 (5-8)
[2021-04-08] MEDS: Omnipaque 350 MG/ML 100 ML BTL IJ (16:38)
[2021-04-08] MEDS: Normal Saline - Diluent 50 ML VIAL IV (16:39)
--- NOTE | 2021-04-08 17:10 | DI.VRAD_ITS ---
PROCEDURE INFORMATION: Exam: CT Abdomen And Pelvis With Contrast Exam date and time: 04/08/2021 3:46 PM Age: 80 years old Clinical indication: Abdominal pain; Prior surgery; Patient HX: Left lower flank/hip pain TECHNIQUE: Imaging protocol: Computed tomography of the abdomen and pelvis with contrast. COMPARISON: CT thorax abdomen CTA 11/23/2018 13:19 FINDINGS: Lungs: There mild bibasilar atelectasis. Liver: Normal. No mass. Gallbladder and bile ducts: Distended gallbladder. Pancreas: Normal. No ductal dilation. Spleen: Calcified splenic granulomas. Adrenal glands: Normal. No mass. Kidneys and ureters: Right nephrolithiasis without hydronephrosis. Stable simple left renal cyst. Stomach and bowel: Constipation. Normal caliber small bowel. Appendix: No evidence of appendicitis. Intraperitoneal space: Unremarkable. No free air. No significant fluid collection. Vasculature: Atherosclerotic disease. Enlarged right and left iliac arteries. Coronary artery disease. Lymph nodes: Inguinal adenopathy. Urinary bladder: Unremarkable as visualized. Reproductive: Unremarkable as visualized. Bones/joints: Right and left total hip arthroplasties. Multilevel degenerative changes of the visualized thoracic spine and of the lumbar spine. Degraded image quality through the pelvis secondary to the total hip prosthesis. Soft tissues: Bilateral inguinal hernias. IMPRESSION: 1. Constipation. 2. Additional findings as discussed above. Dictated and Authenticated by: Desire Choi MD. Ordering:SHARMILA Lucas MD
[2021-04-08 17:36] VITALS: BP 160/88; PULSE 88; RESP 15; RESP 20; TEMP 37.2; O2SAT 95
== END 2021-04-08 17:44 | disposition home or self-care (01) ==
PROVIDERS: Emergency Provider Emergency Medicine; PCP Internal Medicine
DX: M25.552 Pain in left hip (principal); R10.9 Unspecified abdominal pain; K59.00 Constipation, unspecified
CPT/HCPCS: 80053; 83690; 96374; 99285; 74177; 81003; 83735; 85025; 99283; J1885; J3490

== ENCOUNTER 2021-04-09 18:39 | Emergency (ER) | payer MEDICARE, OTHER, SELFPAY ==
--- NOTE | 2021-04-09 18:42 | ED.GENADUL_ITS ---
Discharge Plan Disposition Patient Disposition: HOME Condition: Stable Discharge Details Clinical Impression: Constipation Primary Care Provider: Alcides Estrada ED Provider: Lance Joseph Home Meds and New Rx's Prescriptions: Continued ibuprofen 600 mg tablet 600 mg PO TID Qty: 90 RF: 3 aspirin 325 MG tablet 325 mg PO DAILY RF: 0 hydrochlorothiazide 12.5 MG capsule 25 mg PO DAILY RF: 0 atorvastatin 10 mg tablet 20 mg PO DAILY RF: 0 tramadol 50 mg tablet 50 mg PO Q6H PRN (Reason: pain) Qty: 12 RF: 0 acetaminophen 500 mg tablet 1,000 mg PO Q8H PRN (Reason: pain) Qty: 90 RF: 3 sennosides-docusate sodium [Senna Laxative-Stool Softener] 8.6-50 mg Tablet 2 tab PO QHS PRNRF: 0 Discharge Instructions Instructions: Constipation (ED) Additional Instructions: continue milk of magnesia and the stool softener follow up with your primary care provider within 1 week if you feel more ill, have new pain or persistent vomit return to the emergency department Discharge Data Discharge Date/Time-TO BE ENTERED AT DEPARTURE: 04/09/21 21:55 Medical Decision Making <Claudia Ramos DO - Last Filed: 04/10/21 09:26> 1855 -- 80-year-old male with a history of osteoarthritis and bilateral hip replacement here with constipation x 2 weeks and L hip pain x 4 days. Seen by orthopedics 2 days ago with unremarkable left hip x-ray and prescribed tramadol for potential left hip muscle strain. Seen in ED yesterday for left hip pain w/ CT abdomen and pelvis which noted abundant fecal material but no evidence of bowel obstruction, abscess or free air and advised to continue stool softeners and try milk of magnesia. He appears comfortable at rest and nontoxic. No fever, vomiting or abdominal pain so do not see an indication for repeat imaging or labs at this time. Left lateral flank and left upper buttock are tender to palpation and pain reproducible with range of motion of left lower extremity. No evidence of cellulitis, trauma or deformity and he is neurovascular intact. Pain potentially could be secondary to a muscle strain as well as constipation, or a viscerosomatic response. Will hold on narcotics due to concern for worsening constipation and give a dose of Valium p.o. and obtain a soapsuds enema. 2000 --No relief or stool removed after 1st soap suds enema. Case endorsed to Dr. Joseph to follow-up on response after second soap suds enema. If no removal of stool but patient is not significantly uncomfortable, can consider plan for discharge to home with recommendations for magnesium citrate. Can also consider sending home with a muscle relaxer for his hip pain. <Lance Joseph MD - Last Filed: 04/09/21 21:26> pt unable to have bowel movement, still no abdomen tenderness on exam, will try miralax and lactulose pt still without BM and requesting d/c. Given reassuring exam and negative ct yesterday feel he is safe for d/c, advise to follow up with pcp and return precautions given HPI <Claudia Ramos DO - Last Filed: 04/10/21 09:26> General Mode of arrival: ambulatory . Date/Time Provider Initiated Documentation: 04/09/21 18:40 . Limitations to Documentation: no limitations . Information obtained by: patient and family . HPI Narrative: Patient is an 80yo male with a history of bilateral hip prosthesis presents to the ED with complaint of constipation x 2 weeks and L hip and back pain for 4 days. Patient had a left hip replacement approximately 8 years ago and states he does not normally have left hip pain until 4 days ago. He denies any new injury. Patient was seen here yesterday for the same complaint and had an abdomen and pelvis CT which noted abundant fecal material but no bowel obstruction or free air. Dr. Cortés called the emergency department earlier to inform us of patient's possible arrival to the ED for constipation and recommended enema if needed. Patient states for the past 4 days he has had left-sided hip pain for which he saw orthopedics 2 days ago and had an x-ray and was told it may be due to a muscle strain and was prescribed tramadol. Patient states he is taking a total of two tabs of tramadol, last dose 2 days ago and does not want to take anymore due to risk of worsening constipation. He states he has tried MiraLAX, milk of magnesia, smooth tea, and suppositories without relief. He states he last had milk of magnesia this morning. He took Tylenol and ibuprofen for his hip pain this morning without relief. Patient denies any fever, nausea, vomiting, abdominal pain. Related Data Home Medications Medication Instructions Recorded Confirmed aspirin 325 mg PO DAILY tab-cap 08/10/17 04/09/21 hydrochlorothiazide 25 mg PO DAILY tab-cap 08/10/17 04/09/21 sennosides-docusate sodium [Senna 2 tab PO QHS PRN 11/13/18 04/09/21 Laxative-Stool Softener] acetaminophen 1,000 mg PO Q8H PRN #90 tab 12/04/19 04/09/21 atorvastatin 10 mg tablet 20 mg PO DAILY tab 06/03/20 04/09/21 ibuprofen 600 mg tablet 600 mg PO TID #90 tab 06/03/20 04/09/21 tramadol 50 mg tablet 50 mg PO Q6H PRN #12 tab 04/05/21 04/09/21 Previous Rx's Medication Instructions Recorded acetaminophen 1,000 mg PO Q8H PRN #90 tab 12/04/19 ibuprofen 600 mg tablet 600 mg PO TID #90 tab 06/03/20 tramadol 50 mg tablet 50 mg PO Q6H PRN #12 tab 04/05/21 Allergies Allergy/AdvReac Type Severity Reaction Status Date / Time codeine AdvReac Mild Verified 04/09/21 18:48 enalapril AdvReac Mild Verified 04/09/21 18:48 latex AdvReac Mild rash Verified 04/09/21 18:48 lisinopril AdvReac Mild Verified 04/09/21 18:48 pravastatin AdvReac Mild Verified 04/09/21 18:48 General DAVID: 3 Review of Systems <Claudia Ramos, - Last Filed: 04/10/21 09:26> All systems reviewed & are unremarkable except as noted in HPI and below Constitutional Constitutional: Reports as per HPI, Denies chills and Denies fever(s) Eyes Eyes: Denies blurry vision ENT Ears, Nose, Mouth, and Throat: Denies dizziness, Denies sore throat and Denies throat swelling Cardiovascular Cardiovascular: Denies chest pain and Denies dyspnea Respiratory Respiratory: Denies cough and Denies dyspnea Gastrointestinal Gastrointestinal: Denies abdominal pain, Reports constipation, Denies diarrhea and Denies vomiting Genitourinary Genitourinary: Denies hematuria and Denies dysuria Musculoskeletal Musculoskeletal: Reports back pain, Denies numbness and Reports other (L hip pain) Integumentary/Breasts Skin/Breast: Denies lesions and Denies rash Neurologic Neurologic: Denies dizziness, Denies localized weakness and Denies numbness Allergic/Immunologic Allergic/Immunologic: Denies throat swelling PFSH <Claudia Ramso DO - Last Filed: 04/10/21 09:26> Medical History (Updated 04/09/21 @ 19:49 by Claudia Ramos DO) Cough Dysphonia HTN (hypertension) Hx of transient ischemic attack (TIA) 2012 Hyperlipidemia Kidney stone Latex allergy Lower back pain Osteoarthritis Pharyngitis Radicular pain Rotator cuff (capsule) sprain Shingles rt hand (healing pustules) and rt arm pain up to rt shoulder and rt side of his back per patient. 05/02 SOB (shortness of breath) Surgical History Colonoscopy - IV Sedation DISCECTOMY pt. reports laminectomy Endoscopic Carpal Tunnel release B/L History of arthroscopy of left knee History of carpal tunnel release (10/29/19) ECTR for recurrent carpal tunnel Had undergone bilateral open ~2009 History of cataract surgery History of total left knee replacement (TKR) 11/19/2018 Lithotripsy Status post total right knee replacement (12/03/19) Total replacement of hip BILATERAL Family History Father Cirrhosis Social History Smoking/Tobacco Use Status: Never Smoking risk assessment performed?: Yes Alcohol Intake: never Drug use: Never Substance use type: does not use Current gender identity: male Do you feel safe at home: Yes Do you feel safe in your relationship?: Yes Exam <Claudia Ramos DO - Last Filed: 04/10/21 09:26> Const General: cooperative and no acute distress HENMT Head: normal to inspection Face and sinus: normal facial exam Eyes General: appearance normal, both eyes and all related structures EOM: EOM intact bilaterally Neck Neck: normal visual inspection and No submandibular swelling Lymphatic: no lymphadenopathy noted Chest Chest: normal inspection of the chest and no tenderness Resp Effort & Inspection: normal respiratory effort and able to speak in complete sentences Auscultation: clear to auscultation bilaterally Cardio Rate: regular rate Rhythm: regular rhythm GI Inspection: normal to inspection Palpation: soft, not firm, not rigid and nontender Auscultation: normal bowel sounds Back/Spine/Pelvis Thoracic/Lumbar Spine: thoracic and lumbar spine normal to inspection Back/spine/pelvis image: 1. Localized tenderness and pain reproducible with movement. No ecchymoses, edema, erythema, crepitus, deformity. Skin General skin exam: no rashes or lesions noted Neuro General: patient alert, patient awake and patient oriented x3 Cognition: normal cognition Speech: speech normal Motor: muscle tone normal throughout and strength 5/5 throughout Sensory Exam: no sensory deficits noted Extrem General: normal to inspection, full ROM, capillary refill normal, no calf tenderness bilaterally and no edema Psych Appearance: grossly normal Mental Status: mental status grossly normal Speech and Movement: speech and movement normal Affect: normal affect Sign Out <Claudia Ramos DO - Last Filed: 04/10/21 09:26> Sign Out Data: Sign Out Comment: No removal of stool after first soapsuds enema. Reassess after 2nd soap suds enema. If patient unable to have bowel movement but does not appear significantly uncomfortable, can plan for discharge home with plan for magnesium citrate. Last updated by Claudia Ramos DO at 04/09/21 19:45
[2021-04-09 18:44] VITALS: BP 140/86; PULSE 69; RESP 16; TEMP 36.6; O2SAT 96
[2021-04-09] MEDS: diazePAM 5 MG TAB PO (19:37)
[2021-04-09] MEDS: Milk of Magnesia 30 ML CUP PO (20:18)
[2021-04-09] MEDS: Lactulose 20 GM/30 ML CUP PO (20:21)
[2021-04-09] MEDS: Ketorolac 15 MG/ML VIAL (21:34)
[2021-04-09 21:57] VITALS: BP 140/86; PULSE 69; RESP 16; TEMP 36.6; O2SAT 96
--- NOTE | 2021-04-09 21:58 | NUR.NOTE ---
Addendum entered by Klaudia Patino 04/10/21 00:29: Pt offered 2nd Enema after first one had little results (brown liquid). Pt stated is there anything I can drink. order for Milk of Mag and Lactulose administered. See MAR for medications and times of administration Original Note: RN acquired care at 1900, MD placed order for medication and treatment. Administered and Treatment unsuccessful. Pt remain in the room awaiting results. Pt rang call burciaga multiple times and anwsered within minutes. Pt stated to staff, I am going because of this pain. RN pulled to critical patient room. MD made aware of patient pain when he became available. MD joseph placed Verbal order for IM toradol 15mg to be pulled and administered. While nurse was pulling pain medication for this specific patient, pt came out into the hallway stating he was leaving because we have done nothing for him. I want my son called. RN in to speak with patient. Pt insisted we have done nothing for him. RN brought up patient chart and stated, I had been in and given a soap leonard enema, you recieved 5mg of Valium for your hip pain, you received Milk of Mag and Lactulose for your chief complaint. I was on my way into your room with pain medication. Pt interjected I asked for pain medication a hour ago and no one has been in. RN explained to patient that unfortunately in an ER, patients who come in in more critical conditions take priority. The patient then stated Well, my bed is wet and I want my sheets changed. Again RN apologized for the delay, but critical patient care takes priority.From the time the verbal order from MD Joseph was heard, to the time the RN brought in the medication to the pt was 9min. RN discussed patients options stating It is your right to leave if you so chose and we can call your son for your ride, but I can give you pain medication and allow the MD to come in to discuss plan. RN in to change patient sheets and administer IM toradol. Pt decided to stay and received the IM injection of toradol into the patients L deltoid. MD Joseph made aware of the situation and into patient room to discuss. MD Joseph d/c pt. RN into the room to give d/c instructions and discussed d/c plain to continue protocol from previous day. Upon exiting pt starting to c/o hip pain and required a wheelchair to be wheeled to waiting room. Multiple attempts have been made by staff to reach patient son for a ride, unsuccessful so far.
== END 2021-04-09 21:55 | disposition home or self-care (01) ==
PROVIDERS: Emergency Provider Emergency Medicine; PCP Internal Medicine
DX: K59.00 Constipation, unspecified (principal); M25.512 Pain in left shoulder; Z96.642 Presence of left artificial hip joint
CPT/HCPCS: 96375; 99284; 99283; J1885

== ENCOUNTER 2021-04-26 03:35 | Outpatient (CLI) | payer MEDICARE, OTHER, SELFPAY ==
[2021-04-26 13:58] LABS: ESR 9 mm/hr (0-20)
[2021-04-26 15:33] LABS: C-Reactive Protein 0.26 mg/dL (0.0-0.3)
[2021-04-27 21:01] LABS: Chromium, Serum 0.1 ng/mL (<0.3); Cobalt, S 0.5 ng/mL
== END 2021-04-26 03:36 | disposition home or self-care (01) ==
LOC: LBO 03:35
PROVIDERS: PCP Internal Medicine; Visit Provider Student in an Organized Health Care Education/Training Program
DX: M25.552 Pain in left hip (principal); Z96.642 Presence of left artificial hip joint
CPT/HCPCS: 36415; 85652; 82495; 83789; 86140

== ENCOUNTER 2021-04-27 02:31 | Outpatient (CLI) | payer MEDICARE, OTHER, SELFPAY ==
--- NOTE | 2021-04-27 07:00 | DI.NM_ITS ---
Exam(s) NM BONE SCAN 3 PHASE EXAM: NM BONE SCAN 3 PHASE CLINICAL HISTORY: pain around R hip replacement, ?loosening,M25.559,Z96.649. TECHNIQUE: Injected Dose: 24.5 mCi Tc-99m MDP COMPARISON: CR XR SHOULDER RT COMPLETE 2+V from 08/19/2020 CR XR SHOULDER RT COMPLETE 2+V from 08/19/[address] ABDOMEN PELVIS W from 04/08/[address] ABDOMEN PELVIS W from 04/08/2021 FINDINGS: Perfusion: Symmetric. Blood Pool: Symmetric. Delayed: There are photopenic defects related to bilateral hip prostheses. There is no abnormal surr ounding increased activity. SI joint activity appears normal. There is increased activity in the sp ine which appears to correspond to advanced degenerative disc changes as noted on recent abdomen pelv ic CT. Increased activity is seen at or both the sternoclavicular joints and both AC joints, likely reflecting degenerative changes. There are bilateral phone a peak areas in both knees consistent wit h knee prostheses. There is mildly increased activity at the right knee. Mildly increased activity is seen in the left ankle. IMPRESSION: 1. No evidence of loosening or infection of the hip prostheses. 2. Increased activity in the spine and shoulders likely reflects degenerative changes. DATA REPOSITORY:
== END 2021-04-27 02:51 ==
PROVIDERS: PCP Internal Medicine; Visit Provider Student in an Organized Health Care Education/Training Program
DX: M25.551 Pain in right hip (principal); Z96.641 Presence of right artificial hip joint
CPT/HCPCS: 78315

== ENCOUNTER 2021-05-19 02:27 | Outpatient (CLI) | payer MEDICARE, OTHER, SELFPAY ==
--- NOTE | 2021-05-19 07:30 | DI.MRI_ITS ---
Exam(s) MR LUMBAR SPINE WO EXAM: MR LUMBAR SPINE WO CLINICAL HISTORY: LUMBAR SPONDYLOSIS,LT FLANK AND BACK PAIN,PAIN REGION OF HIP AFTER REPLACE. TECHNIQUE: Multiplanar multisequence MRI of the Lumbar spine was performed. COMPARISON: MR MRI - LUMBAR SPINE WO CONTRAST from 04/11/2017 MR MRI - LUMBAR SPINE WO CONTRAST from 04/11/2017 FINDINGS: Conus medullaris is at normal level. There is no evidence of conus mass nor subjacent clumping of in trathecal nerve roots to suggest arachnoiditis. The distal thecal sac appears unremarkable.There is no evidence of Tarlov intrasacral cysts nor other significant findings within the sacral canal Bones:There are no fractures nor ominous osseous lesions in the lumbar vertebral bodies and visualize d sacrum. With respect to the individual levels... T12-L1: Normal disc height. There is annular bulging. In addition, there is now a superimposed post erolateral left disc protrusion which extends posteriorly 5 millimeters and is approximately 1.4 cm w [place], extending into the exiting left neural foramen. This is resulting in moderate left-sided forami nal stenosis which was not previously present. This disc protrusion also indents the left side of th e thecal sac. Does not put obvious pressure upon the conus medullaris. There are minimal facet dege nerative changes at this level. L1-2: Normal disc height and signal. There is broad annular bulging again noted at this level, exhibi ting minimal if any significant change. There is flattening of the thecal sac with an element of mil d-moderate central spinal canal stenosis again evident at this level. There is also again noted a sm all superimposed left paracentral disc protrusion which extends posteriorly approximately 1 millimete r and is approximately 6 millimeters wide, unchanged. This is best seen on the axial images. The an nular bulging extends into the floor of the exiting neural foramina but there is only mild bilateral foraminal stenosis due to the relative preservation of disc height at this level in addition, there a re only mild degenerative facet joint arthropathy changes. L2-3: There is advanced disc space narrowing throughout this disc space with Modic type 2 sub endplat e fatty marrow changes again noted. There is no true disc herniation at this level. Central canal d imensions are lower normal. Annular bulging extends into the exiting neural foramen floor, resulting in mild left-sided foraminal stenosis at this level. No foraminal stenosis on the right side as the re appears to be slight better preservation of disc height on the right side of the disc space, when compared to the left side. At this level facet joints appear relatively unremarkable.No foraminal st enosis.No facet arthropathy. L3-4: This level exhibits severe disc height loss and Modic type 2 sub endplate marrow changes on the right side of the disc space and moderate height loss of the disc on the left side. There is annula r bulging with a superimposed central subligamentous disc bulge which has not increased in size.. Ce ntral canal dimensions are lower normal. There is mild-moderate right-sided foraminal stenosis at th is level which is unchanged. Exiting left neural foramen is patent due to relative better preservati on of disc height on the left side of the disc space. Mild facet degenerative changes. There is devi dence of prior probable surgery at this level as the ligamentum flavum on the right side appear to be absent at this level and there is a finding in the right lamina which implies probable prior instrum entation. L4-5: This level again exhibits advanced disc space narrowing on both sides, slightly more so on the left side. Ligamentum flavum appear to be missing on this level also. There is no evidence of disc herniation at this level. Central canal dimensions are lower normal . there is mild bilateral forami nal stenosis at this level again noted, unchanged. Mild facet degenerative changes. Ligamentum flav um appear to be absent at this level. L5-S1: This level again exhibits advanced disc space narrowing and anterior osteophytes. No disc her niation nor central canal stenosis. There is some foraminal stenosis on the right side at this level again noted due to disc height loss with some impingement of the exiting right nerve root between th e overlying right pedicle of L5 and the subjacent annulus. Similar findings seen in the left exiting neural foramen at this level. There are no obvious degenerative changes in the facet joints. Ligam entum flavum are present but unremarkable in appearance. Soft tissues: Small cyst in the lateral cortex of the left kidney is again noted. IMPRESSION: 1. There is 1 new disc protrusion which is actually at the T12-L1 level posterolateral left and impre ssing upon the anterior left side of the thecal sac and extending into the exiting left neural forame n, finding which was not evident on the prior MRI scan of March 2017. 2. Below this level there are multilevel findings as described individually above but with minimal change compared to the prior MRI scan of March 2017. There is subtle evidence of pr ior surgery with absence of the ligamentum flavum at multiple levels, this resulting in better dimens ions of the central canal. There is no prominent central spinal canal stenosis. Most evident spinal canal stenosis is at the L1-2 level (mild-moderate). 3. No significant osseous lesions. Also no listhesis evident. DATA REPOSITORY:
== END 2021-05-19 02:47 ==
PROVIDERS: PCP Internal Medicine; Visit Provider Student in an Organized Health Care Education/Training Program
DX: M51.25 Other intervertebral disc displacement, thoracolumbar region; M48.061 Spinal stenosis, lumbar region without neurogenic claudication; M47.816 Spondylosis without myelopathy or radiculopathy, lumbar region; M25.559 Pain in unspecified hip; R10.9 Unspecified abdominal pain; Z96.649 Presence of unspecified artificial hip joint
CPT/HCPCS: 72148

== ENCOUNTER → 2021-11-04 08:33 | Outpatient (BNVA) | payer MEDICARE, OTHER, SELFPAY | PROVIDERS: PCP Internal Medicine; Referring Provider Internal Medicine; Visit Provider Student in an Organized Health Care Education/Training Program | DX: M70.71 Other bursitis of hip, right hip (principal) | CPT/HCPCS: 99213 ==

== ENCOUNTER 2022-02-20 18:13 | Outpatient (REF) | payer MEDICARE, OTHER, SELFPAY ==
[2022-02-22 11:50] LABS: COVID-19 RT-PCR UVMMC Result Negative (Negative)
== END 2022-02-20 18:14 | disposition home or self-care (01) ==
LOC: NCHCN 18:13
PROVIDERS: PCP Internal Medicine; Visit Provider Family Medicine
DX: Z20.822 Contact with and (suspected) exposure to COVID-19 (principal); R05.8 Other specified cough
CPT/HCPCS: U0003; U0005

== ENCOUNTER 2022-02-27 19:02 | Outpatient (REF) | payer MEDICARE, OTHER, SELFPAY ==
[2022-02-27 15:25] LABS: BUN 17 mg/dL (7-18); CREATININE 1.1 mg/dL (0.70-1.30); Calcium 9.6 mg/dL (8.5-10.1); Chloride 102 mmol/L (98-107); Glucose 133 mg/dL (74-106); Potassium 3.9 mmol/L (3.5-5.1); Sodium 143 mmol/L (136-145)
== END 2022-02-27 19:03 | disposition home or self-care (01) ==
LOC: NCHCN 19:02
PROVIDERS: PCP Internal Medicine; Visit Provider Internal Medicine
DX: I10 Essential (primary) hypertension (principal); N18.30 Chronic kidney disease, stage 3 unspecified
CPT/HCPCS: 80048

== ENCOUNTER → 2022-03-07 02:10 | Outpatient (CLI) | payer MEDICARE, OTHER, SELFPAY ==
--- NOTE | 2022-03-07 08:05 | DI.CT_ITS ---
Exam(s) CT CHEST WO EXAM: CT CHEST WO CLINICAL HISTORY: ASCENDING AORTA DILATATION, I77.810 TECHNIQUE: CT examination of the chest was performed without contrast administration due to lack of contrast availability. COMPARISON: CT CT thorax abdomen CTA from 06/16/2019 FINDINGS: Images obtained through the upper abdomen show unremarkable appearance of visualized portions of the liver, there are splenic calcifications noted consistent with healed granulomatous disease. Visualized portions of the pancreas and bile ducts are unremarkable. Note is made of nonobstructing right renal calculi. Note is made of coronary artery calcification. There is no mediastinal or hilar adenopathy. Ascending thoracic aorta is ectatic at about 46 millime ters, increased from [address] of June 2019.. Tracheobronchial tree appears intact. No pleural effusion or pleural-based mass. The lungs are clear with no significant intrapulmonary nodule identified. IMPRESSION: Ectatic thoracic ascending aorta at 46 millimeters, slightly increased from 44 millimeters measuremen t in 2019. No additional acute findings. RADIATION DOSE DELIVERED: 543.39mGy.cm Total DLP CTDIvol 543.39mGy.cm Total DLP !Error CTDIvol RADIATION OPTIMIZATION: All CT scans at this facility use at least one of these dose optimization te chniques: automated exposure control; mA and/or kV adjustment per patient size (includes targeted exa ms where dose is matched to clinical indication); or iterative reconstruction.
== END ==
PROVIDERS: PCP Internal Medicine; Visit Provider Internal Medicine
DX: I77.810 Thoracic aortic ectasia (principal)
CPT/HCPCS: 71250

== ENCOUNTER 2022-03-09 16:07 | Outpatient (CLI) | payer MEDICARE, OTHER, SELFPAY ==
[2022-03-09 14:31] LABS: Abs Immature Grans 0.02 10^3/uL (0.0-0.06); Absolute Basophil Count 0.03 10^3/uL (0.0-0.2); Absolute Eosinophil Count 0.11 10^3/uL (0.0-0.7); Absolute Lymphocyte Count 1.58 10^3/uL (1.2-3.4); Absolute Monocyte Count 0.59 10^3/uL (0.1-0.8); Absolute Neutrophil Count 4.13 10^3/uL (1.2-6.7); Basophils % 0.5; Eosinophils % 1.7; HCT 38.9 % (40.0-50.0); HGB 12.9 g/dL (13.5-17.5); Immature Grans % 0.3; Lymphocytes % 24.5; MCH 32.4 pg (27.0-33.0); MCHC 33.2 % (32.0-36.0); MCV 98 fL (80-95); MPV 9.5 fL (8.0-11.0); Monocytes % 9.1; Neutrophils % 63.9; Platelet Count 191 10^3/uL (130-400); RBC 3.98 10^6/uL (4.36-5.78); RDW-SD 46.9 fL; WBC 6.46 10^3/uL (4.4-10.8)
[2022-03-09 15:46] LABS: Ferritin 172 ng/mL (26-388)
== END 2022-03-09 16:08 | disposition home or self-care (01) ==
LOC: LBO 16:12
PROVIDERS: PCP Internal Medicine; Visit Provider Surgery
DX: K62.5 Hemorrhage of anus and rectum
CPT/HCPCS: 36415; 46600; 99214; 99242; 82728; 85025

== ENCOUNTER 2022-04-04 00:51 | Outpatient (CLI) | payer MEDICARE, OTHER, SELFPAY ==
[2022-04-04 13:16] LABS: Abs Immature Grans 0.01 10^3/uL (0.0-0.06); Absolute Basophil Count 0.03 10^3/uL (0.0-0.2); Absolute Eosinophil Count 0.09 10^3/uL (0.0-0.7); Absolute Monocyte Count 0.47 10^3/uL (0.1-0.8); Absolute Neutrophil Count 3.15 10^3/uL (1.2-6.7); Basophils % 0.6; Eosinophils % 1.7; HCT 39.4 % (40.0-50.0); HGB 13.3 g/dL (13.5-17.5); Immature Grans % 0.2; Lymphocytes % 28.6; MCH 33.2 pg (27.0-33.0); MCHC 33.8 % (32.0-36.0); MCV 98 fL (80-95); MPV 9.4 fL (8.0-11.0); Neutrophils % 59.9; Platelet Count 162 10^3/uL (130-400); RBC 4.01 10^6/uL (4.36-5.78); RDW 13.4 % (11.8-14.1); RDW-SD 48.1 fL; WBC 5.25 10^3/uL (4.4-10.8)
[2022-04-04 14:03] LABS: Ferritin 130 ng/mL (26-388)
[2022-04-04 14:32] LABS: Iron 62 ug/dL (65-175); Total Iron Binding Capacity 261 ug/dL (250-450); Transferrin Sat 24 % (20-55)
== END 2022-04-04 00:52 | disposition home or self-care (01) ==
LOC: LBO 00:52
PROVIDERS: PCP Internal Medicine; Visit Provider Surgery
DX: D64.9 Anemia, unspecified (principal); K62.5 Hemorrhage of anus and rectum
CPT/HCPCS: 36415; 82728; 83540; 83550; 85025

== ENCOUNTER 2023-03-26 12:45 | Outpatient (REF) | payer MEDICARE, OTHER, SELFPAY ==
[2023-03-26 15:49] LABS: HCT 45.1 % (40.0-50.0); HGB 15.1 g/dL (13.5-17.5); MCH 32.6 pg (27.0-33.0); MCHC 33.5 % (32.0-36.0); MCV 97 fL (80-95); MPV 10.6 fL (8.0-11.0); Platelet Count 194 10^3/uL (130-400); RBC 4.63 10^6/uL (4.36-5.78); RDW-SD 46.2 fL; WBC 5.27 10^3/uL (4.4-10.8)
[2023-03-26 16:00] LABS: ALT 26 U/L (16-63); AST 26 U/L (15-37); Albumin 3.9 g/dL (3.4-5.0); Alkaline Phosphatase 90 U/L (46-116); Anion Gap 7.6 mmol/L (3-11); BUN 18 mg/dL (7-18); Bilirubin, Total 0.7 mg/dL (0.2-1.0); CO2 32.4 mmol/L (21.0-32.0); CREATININE 1.2 mg/dL (0.70-1.30); Calcium 10.3 mg/dL (8.5-10.1); Chloride 105 mmol/L (98-107); Estimated GFR 60.38 (mL/min/1.73m2); Glucose 109 mg/dL (74-106); Potassium 4.2 mmol/L (3.5-5.1); Sodium 145 mmol/L (136-145); Total Protein 7.9 g/dL (6.4-8.2)
== END 2023-03-26 12:46 | disposition home or self-care (01) ==
LOC: NCHCN 12:45
PROVIDERS: PCP Internal Medicine; Visit Provider Internal Medicine
DX: I10 Essential (primary) hypertension (principal); N18.30 Chronic kidney disease, stage 3 unspecified; K59.09 Other constipation; Z87.19 Personal history of other diseases of the digestive system
CPT/HCPCS: 80053; 85027

== ENCOUNTER 2023-04-26 02:14 | Outpatient (CLI) | payer MEDICARE, OTHER, SELFPAY ==
--- NOTE | 2023-04-26 | DI.CT_ITS ---
Exam(s) CT THORAX CTA EXAM: CT THORAX CTA CLINICAL HISTORY: ASCENDING AORTA DILATATION,I77.810. TECHNIQUE: Imaging Protocol: CT angiography of the chest was performed using pulmonary embolus kee col. Multi planar reconstructions were performed. CONTRAST MATERIAL: Intravenous: Omnipaque 350 Contrast volume: 100 cc COMPARISON: CT CT CHEST WO from 03/07/2022 FINDINGS: CHEST: AORTA: Diameter of the ascending thoracic aorta is 4.5 cm. No evidence dissection. The diameter of the mid thoracic aortic arch is 3 cm. Diameter of the proximal than the thoracic aorta is 0.8 cm. D iameter of the distal thoracic aorta is upper normal. There is moderate atherosclerotic disease of a scending thoracic aorta. No dissection. The partially visualized upper abdominal aorta is atheroscl erotic and exhibits maximum diameter 2.5 cm. CARDIAC: Heart size is normal. There is no pericardial effusion. PULMONARY ARTERIES: There are no intraluminal filling defects to suggest acute pulmonary emboli. LUNGS: Small 3 millimeter nodule in the right lower lobe is unchanged. No new significant nodules. No infiltrates. No pleural effusions. No pneumothorax.. MEDIASTINUM: There is no hilar nor mediastinal adenopathy. PARTIALLY VISUALIZED UPPERMOST ABDOMEN: No obvious findings OSSEOUS: No significant osseous lesions.No fractures.. IMPRESSION: 1. Of the ascending thoracic aorta is 4.5 cm, unchanged from CT scan of February 2022. No evidence aortic dissection. No pericardial effusion. Heart size remains normal. 2. No pulmonary emboli seen. 3. Stable 3 millimeter right lower lobe nodule. No new nodules nor pleural effusions. RADIATION DOSE DELIVERED: 526.41mGy.cm Total DLP DATA REPOSITORY: All CT scans at this facility are submitted to the National Radiology Data Registry (NRDR) Dose Index Registry (DIR) with the [employer] ([employer]). RADIATION OPTIMIZATION: All CT scans at this facility use at least one of these dose optimization te chniques: automated exposure control; mA and/or kV adjustment per patient size (includes targeted exa ms where dose is matched to clinical indication); or iterative reconstruction.
[2023-04-26] MEDS: Normal Saline - Diluent 50 ML VIAL IJ (13:17)
[2023-04-26] MEDS: Omnipaque 350 MG/ML 500 ML BTL-Imaging package IJ (13:17)
== END 2023-04-26 02:34 ==
PROVIDERS: PCP Internal Medicine; Visit Provider Internal Medicine
DX: I77.810 Thoracic aortic ectasia (principal); R91.1 Solitary pulmonary nodule
CPT/HCPCS: 71275

== ENCOUNTER 2023-04-30 12:02 | Outpatient (CLI) | payer MEDICARE, OTHER, SELFPAY ==
--- NOTE | 2023-04-30 11:45 | DI.RAD_ITS ---
Exam(s) XR ELBOW RT COMPLETE EXAM: XR ELBOW RT COMPLETE CLINICAL HISTORY: Right elbow pain. TECHNIQUE: 2D digital imaging was performed. Three views. COMPARISON: No exams were available for comparison FINDINGS: BONES: No acute fracture is present. No bony destructive lesion is seen. JOINTS: The elbow is normally aligned. No joint effusion is seen. Degenerative changes with periarti cular spurring. SOFT TISSUE: Soft tissue calcifications seen adjacent to the elbow not appear to be within the joint space likely soft tissue or ligamentous calcification. IMPRESSION: Degenerative changes. DATA REPOSITORY: RADIATION DOSE DELIVERED:
== END 2023-04-30 12:03 | disposition home or self-care (01) ==
LOC: DIORS 12:02
PROVIDERS: PCP Internal Medicine; Referring Provider Internal Medicine; Visit Provider Student in an Organized Health Care Education/Training Program
DX: M77.11 Lateral epicondylitis, right elbow
CPT/HCPCS: 99213; 73080

== ENCOUNTER → 2023-06-05 03:21 | Outpatient (CLI) | payer MEDICARE, OTHER, SELFPAY ==
--- NOTE | 2023-06-05 | DI.MRI_ITS ---
Exam(s) MR LOWER EXTREMITY LT WO EXAM: MR LOWER EXTREMITY LT WO CLINICAL HISTORY: ACUTE LEG PAIN, ,M79.606, INJURY OF HAMSTRING, PROFOUND BRUISING DISTALLY TECHNIQUE: Multiplanar multisequence MRI was performed. COMPARISON: CT CT ABDOMEN PELVIS W from 04/08/2021 FINDINGS: MARROW: There is artifact from bilateral hip prostheses. Also from left knee prosthesis. There is n o evidence of fracture, bone contusion, nor avascular necrosis. There are no significant osseous les ions. MUSCLES: There is abnormal fluid signal abnormality at the common hamstrings insertion consistent wit h significant tearing the tendon at this level. There is edema signal in the biceps femoris muscle. No evidence of intermuscular fluid collection. IMPRESSION: 1. There is avulsion tearing of the common hamstrings origin from the ischial tuberosity. There is ed clover evident in the biceps femoris muscle. DATA REPOSITORY:
--- NOTE | 2023-06-05 17:24 | DI.VRAD_ITS ---
PROCEDURE INFORMATION: Exam: MR Left Lower Extremity Without Contrast, Femur Exam date and time: 06/05/2023 9:57 AM Age: 82 years old Clinical indication: Injury or trauma; Other: Hamstring tear; Sprain or strain; Lower leg; Left TECHNIQUE: Imaging protocol: Magnetic resonance imaging of the left femur without contrast. COMPARISON: P[facility] Amin. Long Legs 12/04/2018 2:10 PM FINDINGS: Bones/joints: Left hip prosthesis. No periprosthetic fracture or edema within the femur. Left knee prosthesis. No periprosthetic fracture. Soft tissues: Edema and tear of the hamstring origin from the ischial tuberosity. Small hematoma present in the tendon sheath. Edema present in the biceps femoris muscle. IMPRESSION: Avulsion tear of the hamstring origin from the ischial tuberosity. Hematoma present in the tendon sheath. Edema/myositis of the biceps femoris muscle. Dictated and Authenticated by: Tito Kelly MD. Ordering:JOANA Bucio MD
== END ==
PROVIDERS: PCP Internal Medicine; Visit Provider Family Medicine
DX: S76.312A Strain of muscle, fascia and tendon of the posterior muscle group at thigh level, left thigh, initial encounter (principal); X58.XXXA Exposure to other specified factors, initial encounter
CPT/HCPCS: 73718

== ENCOUNTER 2023-08-27 14:00 | Outpatient (REF) | payer MEDICARE, OTHER, SELFPAY ==
[2023-08-27 15:10] LABS: Anion Gap 7.2 mmol/L (3-11); BUN 21 mg/dL (7-18); CO2 32.8 mmol/L (21.0-32.0); CREATININE 0.9 mg/dL (0.70-1.30); Calcium 9.8 mg/dL (8.5-10.1); Chloride 104 mmol/L (98-107); Estimated GFR 85.27 (mL/min/1.73m2); Glucose 107 mg/dL (74-106); Potassium 4.1 mmol/L (3.5-5.1); Sodium 144 mmol/L (136-145)
== END 2023-08-27 14:01 | disposition home or self-care (01) ==
LOC: NCHCN 14:00
PROVIDERS: PCP Internal Medicine; Visit Provider Internal Medicine
DX: I10 Essential (primary) hypertension (principal); N18.30 Chronic kidney disease, stage 3 unspecified; E83.52 Hypercalcemia; Z86.73 Personal history of transient ischemic attack (TIA), and cerebral infarction without residual deficits
CPT/HCPCS: 80048

== ENCOUNTER 2024-08-18 12:29 | Outpatient (CLI) | payer MEDICARE, OTHER, SELFPAY ==
--- NOTE | 2024-08-18 | DI.RAD_ITS ---
Exam(s) XR HIP LT COMPLETE AP PELVIS EXAM: XR HIP LT COMPLETE AP PELVIS CLINICAL HISTORY: Pain in left hip, M25.552. TECHNIQUE: 2D digital imaging was performed. Three views. COMPARISON: CR XR HIP LT COMPLETE AP PELVIS from 04/07/2021 FINDINGS: BONES: Stable alignment of bilateral hip prostheses. No acute fracture is present. No bony destructi ve lesion is seen. Severe degenerative changes noted at lower lumbar spine. JOINTS: No dislocation present. The SI joints and pubic symphysis are intact. No significant degenera tive changes. SOFT TISSUE: Normal. IMPRESSION: Stable appearance of bilateral hip prostheses. DATA REPOSITORY: RADIATION DOSE DELIVERED:
== END 2024-08-18 12:49 ==
LOC: DI 12:31
PROVIDERS: PCP Internal Medicine; Visit Provider Family Medicine
DX: Z96.643 Presence of artificial hip joint, bilateral (principal); Z98.890 Other specified postprocedural states; M25.552 Pain in left hip
CPT/HCPCS: 73502

== ENCOUNTER → 2024-09-01 09:49 | Outpatient (BNVA) | payer MEDICARE, OTHER, SELFPAY | PROVIDERS: PCP Internal Medicine; Referring Provider Internal Medicine; Visit Provider Student in an Organized Health Care Education/Training Program | DX: M70.60 Trochanteric bursitis, unspecified hip (principal); M76.892 Other specified enthesopathies of left lower limb, excluding foot | CPT/HCPCS: 20610; J1010 ==

== ENCOUNTER 2024-09-30 13:38 | Emergency (ER) | payer MEDICARE, OTHER, SELFPAY ==
[2024-09-30 13:43] VITALS: BP 127/70; PULSE 77; RESP 14; TEMP 36.6; O2SAT 92
--- NOTE | 2024-09-30 14:17 | ED.GENADUL_ITS ---
Discharge Plan Disposition Patient Disposition: Home Condition: Stable Discharge Details Clinical Impression: Laceration of left index finger Primary Care Provider: Rupinder Guajardo ED Provider: Lance Joseph Home Meds and New Rx's Prescriptions: Continued aspirin 325 MG tablet 325 mg PO DAILY hydrochlorothiazide 12.5 MG capsule 25 mg PO DAILY atorvastatin 10 mg tablet 40 mg PO DAILY ibuprofen 600 mg tablet See Rx Instructions .ROUTE .COMPLEX Qty: 90 5RF Dose Instruction: TAKE ONE TABLET BY MOUTH THREE TIMES A DAY FOR PAIN Rx Instructions: TAKE ONE TABLET BY MOUTH THREE TIMES A DAY FOR PAIN acetaminophen 500 mg tablet 1,000 mg PO Q8H PRN (Reason: pain) Qty: 90 3RF sennosides-docusate sodium [Senna Laxative-Stool Softener] 8.6-50 mg Tablet 2 tab PO QHS PRN Discharge Instructions Additional Instructions: Your x-ray did not show any concerning findings at this time Given the wound happened a day ago the risk of infection with sutures is too high so we we will let this heal on its own with Steri-Strips and pressure dressings If you have redness spreading from the wound or severe worsening pain return to the emergency department for reevaluation HPI General Mode of arrival: ambulatory . Date/Time Provider Initiated Documentation: 09/30/24 13:48 . Limitations to Documentation: no limitations . Information obtained by: patient . History of Present Illness 84 year old M presents to the emergency department with the chief complaint of left index finger lac, described as mild, Quality is described as aching, and is localized to the left and upper extremity. Patient reports no radiation. Patient started experiencing this day(s) (1) and it has been constant. No relieving factors improve symptom(s), No exacerbating factors reported . Patient notes denies fever/chills, nausea/vomiting and shortness of breath. Patient did receive the following treatments prior to arrival, none Related Data Home Medications ?Medication ?Instructions ?Recorded ?Confirmed aspirin 325 mg tablet 325 mg PO DAILY 08/10/17 09/30/24 hydrochlorothiazide 12.5 mg capsule 25 mg PO DAILY 08/10/17 09/30/24 sennosides 8.6 mg-docusate sodium 2 tab PO QHS PRN 11/13/18 09/30/24 50 mg tablet (Senna Laxative-Stool Softener) acetaminophen 500 mg tablet 1,000 mg (2 x 500 mg) PO Q8H PRN 12/04/19 09/30/24 pain #90 tabs atorvastatin 10 mg tablet 40 mg PO DAILY 03/15/22 09/30/24 ibuprofen 600 mg tablet See Rx Instructions .Route 07/11/23 09/30/24 .COMPLEX #90 tabs Previous Rx's ?Medication ?Instructions ?Recorded acetaminophen 500 mg tablet 1,000 mg (2 x 500 mg) PO Q8H PRN 12/04/19 pain #90 tabs ibuprofen 600 mg tablet See Rx Instructions .Route 07/11/23 .COMPLEX #90 tabs Allergies Allergy/AdvReac Type Severity Reaction Status Date / Time codeine AdvReac Mild Unknown Verified 09/30/24 13:46 enalapril AdvReac Mild Unknown Verified 09/30/24 13:46 latex AdvReac Mild rash Verified 09/30/24 13:46 lisinopril AdvReac Mild Unknown Verified 09/30/24 13:46 pravastatin AdvReac Mild Unknown Verified 09/30/24 13:46 General Stated Complaint: Laceration DAVID: 4 Review of Systems All systems reviewed & are unremarkable except as noted in HPI and below Constitutional Constitutional: Denies chills and Denies fever(s) Gastrointestinal Gastrointestinal: Denies abdominal pain and Denies vomiting Integumentary/Breasts Skin/Breast: Denies rash Exam Const General: no acute distress Orientation: alert [facility] Head: normal to inspection Ears: external ears normal General nose exam: external nose normal Mouth: moist mucous membranes Eyes General: appearance normal, both eyes and all related structures Neck Neck: normal visual inspection Resp Effort & Inspection: normal respiratory effort and able to speak in complete sentences Cardio Rate: regular rate Skin General skin exam: no rashes or lesions noted Neuro General: patient alert and patient oriented x3 Extrem General: full ROM and capillary refill normal Psych Mental Status: mental status grossly normal Course Vital Signs Vital signs: Vital Signs Temperature 36.6 C 09/30/24 13:43 Pulse 77 09/30/24 13:43 Respiratory Rate 14 09/30/24 13:43 Blood Pressure 127/70 09/30/24 13:43 Pulse Oximetry 92 09/30/24 13:43 Temperature 36.6 C 09/30/24 13:43 Pulse 77 09/30/24 13:43 Respiratory Rate 14 09/30/24 13:43 Blood Pressure 127/70 09/30/24 13:43 Blood Pressure Position Sitting 09/30/24 13:43 Pulse Oximetry 92 09/30/24 13:43 Oxygen Delivery Method Room Air 09/30/24 13:43 Oxygen Flow Rate 0 09/30/24 13:43 Pain Level 1 09/30/24 13:43 Medical Decision Making 84-year-old male comes in after he sustained a laceration to the left index finger yesterday. He says he had a noelle light bulb he was unscrewing from a trailer when it broke and a piece stabbed him in the left lateral mid index finger. He did not fall or sustain any other injuries. He came in today to have it evaluated. He has a 1 cm superficial laceration that runs vertically on the lateral portion of his left index finger that is between the PIP and DIP joint. He has full range of motion, intact sensation and cap refill. No significant pain with palpation. I suspect laceration unfortunately has been 24 hours since this happened so do not feel sutures are indicated. I will obtain x-rays to evaluate for possible bony trauma less likely foreign bodies. X-ray shows no concerning findings, patient is stable still has no tenderness in the area so doubt retained foreign body. given this happened 24 hours ago do not feel stitches indicated, will have it heal by secondary intention. Patient given return precautions. Nursing to palce steri strips and pressure dressing Differential Diagnosis Differential Diagnosis: Laceration, abrasion Quality:SDOH Health Related Social Needs: No Data to Display PFSH All Active Problems Laceration of left index finger (Acute) Trochanteric bursitis (Acute) DEPO MEDROL 09/01/24 Tendinitis involving left hip abductors (Acute) Right lateral epicondylitis (Acute) Anemia (Chronic) Hematochezia (Acute) Rectal hemorrhage (Acute) Pain in hip region after hip replacement (Acute) Hip pain, left (Acute) Left flank pain (Acute) Constipation (Acute) Left hip pain (Acute) Traumatic tear of right rotator cuff (Acute 08/17/20) Fracture of left scapular body (Acute) Tendinitis of left rotator cuff (Acute) Status post total right knee replacement (Acute 12/03/19) Shingles outbreak (Acute) Mass of right parotid gland (Acute) Carpal tunnel syndrome, right (Acute) History of carpal tunnel release (Acute 10/29/19) ECTR for recurrent carpal tunnel Had undergone bilateral open ~2009 Medical History (Updated 09/30/24 @ 15:20 by Lance Joseph MD) Shingles rt hand (healing pustules) and rt arm pain up to rt shoulder and rt side of his back per patient. 05/02 Pharyngitis HTN (hypertension) Rotator cuff (capsule) sprain Osteoarthritis Radicular pain Kidney stone Hyperlipidemia Cough Latex allergy Dysphonia SOB (shortness of breath) Lower back pain Hx of transient ischemic attack (TIA) 2011 Surgical History History of cataract surgery History of total left knee replacement (TKR) 11/19/2018 History of arthroscopy of left knee Total replacement of hip BILATERAL Lithotripsy Endoscopic Carpal Tunnel release B/L DISCECTOMY pt. reports laminectomy Colonoscopy - IV Sedation Family History Father Cirrhosis Social History Smoking/Tobacco Use Status: Never Smoking risk assessment performed?: Yes Alcohol Intake: never Drug use: Never Substance use type: does not use Current gender identity: male Do you feel safe at home: Yes Do you feel safe in your relationship?: Yes
--- NOTE | 2024-09-30 15:06 | DI.RAD_ITS ---
Exam(s) XR FINGER LT INDEX EXAM: XR FINGER LT INDEX CLINICAL HISTORY: laceration. TECHNIQUE: 2D digital imaging was performed. COMPARISON: No exams were available for comparison FINDINGS: 3 views of the left index finger No evidence of acute fracture or dislocation. There is no radiopaque foreign body evident in the sof t tissues. A few tiny calcifications are seen around the DIP joint ablated tooth some degenerative c hange. There is also some calcification related to the metacarpophalangeal joint, similar to other f ingers in the same hand. There is advanced osteoarthritic degenerative change in the 1st carpometacarpal joint as well as sign ificant advanced narrowing in the carpal row bones between the lunate and capitate. IMPRESSION: Degenerative multilevel findings as described above. No acute fractures and no radiopaque foreign bodies evident. DATA REPOSITORY: RADIATION DOSE DELIVERED:
[2024-09-30 15:35] VITALS: BP 106/60; PULSE 59; RESP 16; O2SAT 94
[2024-09-30] MEDS: Diph,Pertuss(Acell),Tet Vac/Pf 0.5 ML SYR IM (15:39)
== END 2024-09-30 15:52 | disposition home or self-care (01) ==
PROVIDERS: Emergency Provider Emergency Medicine; PCP Family Medicine
DX: S61.211A Laceration without foreign body of left index finger without damage to nail, initial encounter (principal); I10 Essential (primary) hypertension; E78.5 Hyperlipidemia, unspecified; Z86.73 Personal history of transient ischemic attack (TIA), and cerebral infarction without residual deficits; Z23 Encounter for immunization; Z79.82 Long term (current) use of aspirin; W25.XXXA Contact with sharp glass, initial encounter; Y93.E9 Activity, other interior property and clothing maintenance; Y92.018 Other place in single-family (private) house as the place of occurrence of the external cause
CPT/HCPCS: 90471; 90715; 99283; 73140

== ENCOUNTER 2024-10-02 10:21 | Outpatient (REF) | payer MEDICARE, OTHER, SELFPAY ==
[2024-10-02 15:11] LABS: Anion Gap 13.3 mmol/L (3-11); BUN 17 mg/dL (7-18); CO2 26.7 mmol/L (21.0-32.0); CREATININE 1.3 mg/dL (0.70-1.30); Calcium 9.8 mg/dL (8.5-10.1); Chloride 104 mmol/L (98-107); Estimated GFR 54.17 (mL/min/1.73m2); Glucose 138 mg/dL (74-106); Potassium 3.8 mmol/L (3.5-5.1); Sodium 144 mmol/L (136-145)
== END 2024-10-02 10:22 | disposition home or self-care (01) ==
LOC: NCHCN 10:21
PROVIDERS: PCP Family Medicine; Visit Provider Family Medicine
DX: I10 Essential (primary) hypertension (principal)
CPT/HCPCS: 80048

== ENCOUNTER → 2024-10-02 14:21 | Outpatient (BNVA) | payer MEDICARE, OTHER, SELFPAY | PROVIDERS: PCP Family Medicine; Referring Provider Family Medicine | DX: M70.61 Trochanteric bursitis, right hip (principal) | CPT/HCPCS: 20610; J1010 ==

== ENCOUNTER 2025-02-26 01:18 | Outpatient (CLI) | payer MEDICARE, OTHER, SELFPAY ==
[2025-02-26 07:34] LABS: CREATININE 1.1 mg/dL (0.70-1.30); Estimated GFR 66.19 (mL/min/1.73m2)
[2025-02-26] MEDS: Omnipaque 350 MG/ML 100 ML BTL IJ (08:14)
[2025-02-26] MEDS: Normal Saline - Diluent 50 ML VIAL IJ (08:16)
--- NOTE | 2025-02-26 08:25 | DI.CT_ITS ---
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 TECHNIQUE: Imaging Protocol: Axial CT angiography was performed with multi-slice acquisition and mu lti-planar and/or 3D reconstructions. Lung Computer Aided Detection (CAD) was utilized. CONTRAST MATERIAL: Intravenous: Omnipaque 350 contrast volume:100 mL COMPARISON: CT CT THORAX CTA from 04/26/2023 FINDINGS: Tracheobronchial tree: Patent where visualized. No bronchiectasis. Pulmonary parenchyma: No consolidation or dominant measurable mass. No new pulmonary nodules. There is scarring seen in the lower lobes. The 3 mm nodule in the right lower lobe appears stable (series 10, image 83). Pulmonary Arteries: No evidence of filling defect to suggest pulmonary emboli. Mediastinum and Rachel: No dominant adenopathy or fluid collection. The esophagus is unremarkable. Visualized thyroid gland: Unremarkable. Pleura: No effusion or pneumothorax. Heart: The heart is not dilated. Three vessel coronary artery calcification is present. No pericardi al effusion. Aorta: The ascending thoracic aorta measures 4.4 x 4.3 cm. No evidence of dissection. Atheroscleroti c calcification is present. Upper abdomen: Unremarkable. Soft tissues: Unremarkable. Bones: Within normal limits for the patient's age. IMPRESSION: 1. No evidence of pulmonary embolism or thoracic aortic dissection. 2. Stable ectasia of the ascending thoracic aorta. 3. Stable 3 mm right lower lobe pulmonary nodule. RADIATION DOSE DELIVERED: 128.28mGy.cm Total DLP 128.28mGy.cm Total DLP DATA REPOSITORY: All CT scans at this facility are submitted to the National Radiology Data Registry (NRDR) Dose Index Registry (DIR) with the [employer] ([employer]). RADIATION OPTIMIZATION: All CT scans at this facility use at least one of these dose optimization te chniques: automated exposure control; mA and/or kV adjustment per patient size (includes targeted exa ms where dose is matched to clinical indication); or iterative reconstruction.
== END 2025-02-26 01:38 ==
LOC: DI 01:18
PROVIDERS: PCP Family Medicine; Visit Provider Family Medicine
DX: I77.810 Thoracic aortic ectasia (principal)
CPT/HCPCS: 71275; 82565; J3490

== ENCOUNTER 2025-03-10 01:46 | Outpatient (CLI) | payer MEDICARE, OTHER, SELFPAY ==
--- NOTE | 2025-03-10 09:25 | DI.RAD_ITS ---
Exam(s) XR SHOULDER LT COMPLETE 2+V EXAM: XR SHOULDER LT COMPLETE 2+V CLINICAL HISTORY: LT SHOULDER PAIN,M25.512. TECHNIQUE: 2D digital imaging was performed. COMPARISON: CR XR SHOULDER RT COMPLETE 2+V from 03/10/2025 FINDINGS: Five views No evidence of fracture or dislocation nor abnormal soft tissue calcifications. There are moderate-advanced degenerative changes in the glenohumeral joint. Moderate degenerative ch anges in the AC joint. Bone density is age-appropriate. No significant osseous lesions. 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 DATA REPOSITORY: RADIATION DOSE DELIVERED:
--- NOTE | 2025-03-10 09:25 | DI.RAD_ITS ---
Exam(s) XR SHOULDER RT COMPLETE 2+V EXAM: XR SHOULDER RT COMPLETE 2+V CLINICAL HISTORY: RT SHOULDER PAIN,M25.511. TECHNIQUE: 2D digital imaging was performed. COMPARISON: CR XR SHOULDER RT COMPLETE 2+V from 08/19/2020 FINDINGS: Five views No evidence fracture or dislocation nor dominant abnormal soft tissue calcifications. There are mode rate-advanced degenerative changes in the glenohumeral joint, similar to previous. Also some degener ative changes evident in the AC joint, similar to previous. There is subtle calcification at the kiarra t pad insertional aspect of the rotator cuff just above the greater tuberosity. There also multiple small degenerative cysts in the greater tuberosity region. There is an oval calcified density measuring 1.0 x 0.6 cm which is probably a loose intra-articular b sandra located medially. 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 Similar to August 2020. DATA REPOSITORY: RADIATION DOSE DELIVERED:
== END 2025-03-10 02:06 ==
LOC: DI 01:46
PROVIDERS: PCP Family Medicine; Visit Provider Family Medicine
DX: M19.012 Primary osteoarthritis, left shoulder (principal); M19.011 Primary osteoarthritis, right shoulder
CPT/HCPCS: 73030

== ENCOUNTER → 2025-07-28 14:23 | Outpatient (BNVA) | payer MEDICARE, OTHER, SELFPAY | PROVIDERS: PCP Family Medicine; Referring Provider Family Medicine; Visit Provider Physician Assistant | DX: M70.61 Trochanteric bursitis, right hip (principal); M70.62 Trochanteric bursitis, left hip | CPT/HCPCS: 20610 ==

== ENCOUNTER → 2025-07-30 14:38 | Outpatient (BNVA) | payer MEDICARE, OTHER, SELFPAY | PROVIDERS: PCP Family Medicine; Referring Provider Family Medicine; Visit Provider Physician Assistant | DX: M70.61 Trochanteric bursitis, right hip (principal); M70.62 Trochanteric bursitis, left hip | CPT/HCPCS: 20610; J1010 ==

== ENCOUNTER 2025-08-04 10:57 | Outpatient (REF) | payer MEDICARE, OTHER, SELFPAY ==
[2025-08-04 17:03] LABS: ALT 25 U/L (16-63); AST 22 U/L (15-37); Albumin 3.7 g/dL (3.4-5.0); Alkaline Phosphatase 66 U/L (46-116); Anion Gap 10.0 mmol/L (3-11); BUN 21 mg/dL (7-18); Bilirubin, Total 1.7 mg/dL (0.2-1.0); CO2 33.0 mmol/L (21.0-32.0); Calcium 9.8 mg/dL (8.5-10.1); Chloride 99 mmol/L (98-107); Estimated GFR 59.63 (mL/min/1.73m2); Glucose 88 mg/dL (74-106); Potassium 3.5 mmol/L (3.5-5.1); Sodium 142 mmol/L (136-145); Total Protein 7.2 g/dL (6.4-8.2)
== END 2025-08-04 10:58 | disposition home or self-care (01) ==
LOC: NCHCN 10:57
PROVIDERS: PCP Family Medicine; Visit Provider Family Medicine
DX: I10 Essential (primary) hypertension (principal)
CPT/HCPCS: 80053

== ENCOUNTER 2025-08-04 11:09 | Outpatient (CLI) | payer MEDICARE, OTHER, SELFPAY ==
--- NOTE | 2025-08-04 13:49 | DI.RAD_ITS ---
Exam(s) XR LUMBAR SPINE COMPLETE EXAM: XR LUMBAR SPINE COMPLETE CLINICAL HISTORY: M54.46 Radiculopathy, lumbar region. TECHNIQUE: 2D digital imaging was performed of the lumbar spine. Five images were obtained. AP, lateral, right oblique, left oblique and L5-S1 spot views were obtained. COMPARISON: No exams were available for comparison FINDINGS: BONES: No fracture or destructive lesion. There are endplate osteophytes throughout the lumbar spine particularly from L2-3 through L5-S1. Degenerative facet arthropathy is present in the lumbar spine particularly from L3-4 through L5-S1. The patient has bilateral total hip arthroplasties which are incompletely imaged. DISKS: There is disc space narrowing from L2-3 through L5-S1. ALIGNMENT: There is a mild right convex thoracolumbar scoliosis. No spondylolysis or spondylolisthesis. SOFT TISSUE: Atherosclerotic calcification is present. IMPRESSION: Marked degenerative changes seen in the lumbar spine. DATA REPOSITORY: RADIATION DOSE DELIVERED:
== END 2025-08-04 11:29 ==
LOC: DI 11:09
PROVIDERS: PCP Family Medicine; Visit Provider Family Medicine
DX: M54.16 Radiculopathy, lumbar region (principal)
CPT/HCPCS: 72110